=== PATIENT | male | born 1945 | race Caucasian/White ===

== ENCOUNTER → 2018-08-10 | Outpatient (REF) | payer MEDICARE, OTHER ==
[2018-08-10 11:14] LABS: HEMOGLOBIN A1c 7.7 %
[2018-08-10 11:24] LABS: MAU/CREAT RATIO 167.7 MCG/MG (0.0-30.0)
[2018-08-10 12:42] LABS: ALBUMIN 3.7 GM/DL (3.2-5.2); ALT/SGPT 24 U/L (12-78); BILIRUBIN,TOTAL 0.3 MG/DL (0.2-1.0); BLOOD UREA NITROGEN 16 MG/DL (7-18); CALCIUM LEVEL 8.5 MG/DL (8.8-10.2); CARBON DIOXIDE LEVEL 26 MEQ/L (21-32); CHLORIDE LEVEL 108 MEQ/L (98-107); CHOLESTEROL LEVEL 142 MG/DL (<200); CHOLESTEROL RISK RATIO 3.736 (<5); CREATININE FOR GFR 0.91 MG/DL (0.70-1.30); FREE T4 1.01 NG/DL (0.76-1.46); GLOMERULAR FILTRATION RATE > 60.0 (>42); GLUCOSE, FASTING 77 MG/DL (70-100); HDL CHOLESTEROL 38 MG/DL (>40); LDL CHOLESTEROL 88 MG/DL (<100); NON-HDL-C 104 MG/DL; POTASSIUM SERUM 4.1 MEQ/L (3.5-5.1); SODIUM LEVEL 142 MEQ/L (136-145); TOTAL PROTEIN 6.7 GM/DL (6.4-8.2); TRIGLYCERIDES LEVEL 80 MG/DL (<150)
[2018-08-13 11:04] LABS: FOLATE 11.1 NG/ML; TOTAL 25(OH) VITAMIN D 30.8 NG/ML (30.0-100.0)
[2018-08-14 11:08] LABS: VITAMIN B12 LEVEL 208 PG/ML (232-1245)
== END ==
LOC: M SFHCPLAZ 08:09
PROVIDERS: ATTEND Nurse Practitioner Family
DX: E11.9 Type 2 diabetes mellitus without complications (principal); E78.2 Mixed hyperlipidemia; N40.1 Benign prostatic hyperplasia with lower urinary tract symptoms; E55.9 Vitamin D deficiency, unspecified; E53.8 Deficiency of other specified B group vitamins
CPT/HCPCS: 36415; 80053; 80061; 82043; 82306; 82607; 82746; 83036; 84439; 84443; G0103

== ENCOUNTER 2018-09-06 08:17 | Emergency (ER) | payer MEDICARE, OTHER ==
[~2018-09-06] VITALS: Ht 177.8 cm; Wt 100.0 kg
[2018-09-06] MEDS ORDERED: ROSU40TA3 PO (08:35)
[2018-09-06] MEDS ORDERED: SERT50TA PO (08:35)
[2018-09-06] MEDS ORDERED: AMLO10TA5 PO (08:35)
[2018-09-06] MEDS ORDERED: GABA600T4 PO (08:35)
[2018-09-06] MEDS ORDERED: VENTAER IN (08:35)
[2018-09-06] MEDS ORDERED: FLOM0.4C39 PO (08:35)
[2018-09-06] MEDS ORDERED: PANT40TA3 PO (08:35)
[2018-09-06] MEDS ORDERED: LANTINJ4 SC (08:35)
[2018-09-06] MEDS ORDERED: CLOP75TA2 PO (08:35)
[2018-09-06] MEDS ORDERED: PRAZ5CAP PO (08:35)
[2018-09-06] MEDS ORDERED: LISI-542 PO (08:35)
[2018-09-06] MEDS ORDERED: D 1010004 PO (08:35)
[2018-09-06] MEDS ORDERED: METF10004 PO (08:35)
[2018-09-06] MEDS ORDERED: ASPI81TA85 PO (08:35)
[2018-09-06] MEDS ORDERED: MULTCAP PO (08:35)
[2018-09-06] MEDS ORDERED: DULO30CA PO (08:35)
[2018-09-06] MEDS ORDERED: GLIM2TAB PO (08:35)
[2018-09-06] MEDS ORDERED: EZET10TA PO (08:35)
[2018-09-06 09:16] LABS: HEMOGLOBIN 11.9 g/dl (13.5-17.5); MEAN CORPUSCULAR HGB CONC 33.1 g/dl (32.0-36.5); MEAN CORPUSCULAR VOLUME 81.8 fl (80.0-96.0); PLATELET COUNT, AUTOMATED 167 10^3/uL (150-450); WHITE BLOOD COUNT 4.4 10^3/uL (4.0-10.0)
[2018-09-06 09:27] LABS: INFLUENZA A AMPLIFICATION POSITIVE (NEGATIVE); INFLUENZA B AMPLIFICATION NEGATIVE (NEGATIVE)
[2018-09-06 09:34] LABS: BLOOD UREA NITROGEN 12 MG/DL (7-18); CALCIUM LEVEL 8.7 MG/DL (8.8-10.2); CARBON DIOXIDE LEVEL 27 MEQ/L (21-32); CHLORIDE LEVEL 105 MEQ/L (98-107); CREATININE FOR GFR 1.14 MG/DL (0.70-1.30); GLOMERULAR FILTRATION RATE > 60.0 (>42); GLUCOSE, FASTING 115 MG/DL (70-100); POTASSIUM SERUM 4.3 MEQ/L (3.5-5.1); SODIUM LEVEL 140 MEQ/L (136-145)
--- NOTE | 2018-09-06 09:39 | REP ---
Chest x-ray: Two views. History: Cough. Findings: The patient is status post prior median sternotomy. Heart is not enlarged. There are bypass graft markers in the anterior mediastinum. Mediastinum appears somewhat widened on the PA chest radiograph. The pleural angles are sharp. No infiltrate is seen. No significant bony abnormality. Impression: Widened mediastinum. Status post median sternotomy and bypass grafting procedure. Recommend chest CT. Electronically Signed by Berto Santoyo MD 09/06/2018 09:30 A
[2018-09-06] MEDS ORDERED: BENZONATATE 100 MG CAP PO ONE (09:45)
[2018-09-06] MEDS ORDERED: OSEL75CA PO (09:48)
[2018-09-06] MEDS ORDERED: TESS100C PO (09:48)
[2018-09-06] MEDS ORDERED: ISOVUE-370 76% 100ML VIAL (Q9967) As Ordered ONE (09:53)
--- NOTE | 2018-09-06 10:30 | REP ---
CT CHEST WITH IV CONTRAST: HISTORY: Wide mediastinum. Comparison is made with today's chest x-ray. CT CONTRAST DOSE: 75 mL of intravenous Isovue [address] FINDINGS: The patient is status post prior median sternotomy and coronary artery bypass grafting procedure. There is no evidence of pleural or pericardial effusion. There is no evidence of mediastinal mass, adenopathy, or hematoma. There is no evidence of aneurysm or dissection in the aorta. No filling defect is seen in the pulmonary arterial tree to suggest pulmonary embolus. Vascular calcifications noted. No significant pulmonary nodule is seen. No infiltrate or mass lesion is observed. No bony destructive lesion is appreciated. No adrenal lesion is observed. There are two calcified small gallstones in the dependent portion the gallbladder. The visualized upper abdominal structures are otherwise unremarkable. IMPRESSION: Status post median sternotomy and coronary artery bypass grafting procedure. Otherwise no active cardiopulmonary disease. No pathologic mediastinal widening is identified. Cholelithiasis is noted incidentally. Electronically Signed by Berto Santoyo MD 09/06/2018 11:21 A
[2018-09-06 11:19] VITALS: BP 134/71
--- NOTE | 2018-09-07 06:46 | ECGEPIP ---
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
== END 2018-09-06 11:25 | disposition home or self-care (01) ==
LOC: M ED 08:17
DX: J09.X2 Influenza due to identified novel influenza A virus with other respiratory manifestations (principal); Z20.828 Contact with and (suspected) exposure to other viral communicable diseases; I10 Essential (primary) hypertension; E78.5 Hyperlipidemia, unspecified; E11.9 Type 2 diabetes mellitus without complications; K21.9 Gastro-esophageal reflux disease without esophagitis; I35.0 Nonrheumatic aortic (valve) stenosis; Z95.1 Presence of aortocoronary bypass graft; Z79.899 Other long term (current) drug therapy; Z79.82 Long term (current) use of aspirin; Z79.02 Long term (current) use of antithrombotics/antiplatelets; Z79.4 Long term (current) use of insulin
CPT/HCPCS: 36415; 71046; 71260; 80048; 85027; 87502; 93005; 99284; Q9967

== ENCOUNTER → 2018-09-10 | Outpatient (REF) | payer MEDICARE, OTHER ==
[~2018-09-10] MED LIST: AMLO10TA5 PO; ASPI81TA85 PO; CLOP75TA2 PO; D 1010004 PO; DULO30CA9 PO; EZET10TA PO; FLOM0.4C39 PO; GABA600T4 PO; GLIM2TAB PO; HYDR-3363 PO; LANTINJ4 SC; LISI-542 PO; METF10004 PO; MULTCAP PO; NORV5TAB PO; OSEL75CA PO; PANT40TA3 PO; PRAZ5CAP PO; ROSU40TA3 PO; SERT-141 PO; TESS100C PO; VENTAER IN
[2018-09-10 18:34] LABS: APPEARANCE, URINE MANUAL CLOUDY (CLEAR); COLOR, URINE MANUAL YELLOW (YELLOW)
[2018-09-10 18:35] LABS: BILIRUBIN, URINE MANUAL NEGATIVE (NEGATIVE); BLOOD URINE MANUAL NEGATIVE (NEGATIVE); GLUCOSE, URINE (UA) MANUAL NEGATIVE (NEGATIVE); KETONE, URINE MANUAL NEGATIVE (NEGATIVE); LEUKOCYTE ESTERASE, URINE MAN NEGATIVE (NEGATIVE); NITRITE, URINE MANUAL NEGATIVE (NEGATIVE); PROTEIN, URINE MANUAL 2+ mg/dL (NEGATIVE); SPECIFIC GRAVITY,URINE MANUAL 1.025 (1.002-1.035); UROBILINOGEN, URINE MANUAL NORMAL (NORMAL)
[2018-09-10 18:56] LABS: AMORPHOUS SEDIMENT, URINE LARGE AMOUNT (NEGATIVE); BACTERIA, URINE NONE SEEN; HYALINE CAST, URINE NONE SEEN /lpf (0-1); MUCUS, URINE SMALL AMOUNT (NEGATIVE); RBC, URINE NONE SEEN /hpf (0-3); SQUAMOUS EPITHELIAL CELL URINE SMALL AMOUNT /hpf (SMALL AMT); WBC, URINE 0-1 /hpf (0-3)
== END ==
LOC: M SMT 17:34
PROVIDERS: ATTEND Nurse Practitioner Family
DX: R97.20 Elevated prostate specific antigen [PSA] (principal); N40.1 Benign prostatic hyperplasia with lower urinary tract symptoms; R31.0 Gross hematuria
CPT/HCPCS: 51798; 81000; 87086; 88108; G0463

== ENCOUNTER → 2018-09-13 | Outpatient (CLI) | payer MEDICARE, OTHER ==
[~2018-09-13] MED LIST changes: +DULO30CA PO; -DULO30CA9 PO; -HYDR-3363 PO; +ISOVUE-370 76% 100ML VIAL (Q9967) As Ordered ONE; -NORV5TAB PO; -SERT-141 PO; +SERT50TA PO
--- NOTE | 2018-09-13 10:09 | REP ---
CT of the abdomen and pelvis for gross hematuria: The study is performed without and with IV contrast. After IV contrast, multiphase phase scanning is performed utilizing the CT urogram protocol: There are no renal calculi. There are no ureteral calculi. There are no bladder calculi. There is no hydronephrosis. There are no renal solid masses on the right on the left. There is a left renal upper pole 3.8 cm Bosniak type 1 exophytic cyst. There is a left renal mid pole posterior 2.9 cm Bosniak type 1 exophytic cyst. There is a left renal lower pole 1.7 cm Bosniak type 1 cortical cyst. There is a right renal lower pole 3.2 cm Bosniak type 1 exophytic cyst. No bladder masses are identified. The prostate is moderately enlarged. There are phleboliths inferiorly in the pelvis bilaterally. The visualized lung osman are unremarkable. The hepatic parenchyma is homogeneous. There are occasional hepatic calcified granulomas. There are small calculi in the gallbladder neck. The gallbladder is otherwise unremarkable. The pancreas and spleen are normal size and unremarkable. The adrenals are unremarkable. The abdominal aorta is unremarkable except for occasional calcified atheroma. The bowel and mesentery are unremarkable. Pelvis: The appendix is unremarkable. There is no adenopathy or ascites. The pelvic bowel loops are unremarkable. Impression: There are no renal calculi. There is no hydronephrosis. There are no renal solid masses. There are bilateral Bosniak type 1 renal cysts as described. Otherwise, essentially negative CT of the abdomen and pelvis. Half Electronically Signed by Evaristo Lim MD 09/13/2018 10:00 A
== END ==
LOC: M RAD 08:26
PROVIDERS: ATTEND Nurse Practitioner Family
DX: R31.0 Gross hematuria (principal); N28.1 Cyst of kidney, acquired; K80.20 Calculus of gallbladder without cholecystitis without obstruction; I70.0 Atherosclerosis of aorta
CPT/HCPCS: 74178; Q9967

== ENCOUNTER → 2018-09-18 | Outpatient (CLI) | payer MEDICARE, OTHER ==
[~2018-09-18] MED LIST changes: -DULO30CA PO; +DULO30CA9 PO; +HYDR-3363 PO; -ISOVUE-370 76% 100ML VIAL (Q9967) As Ordered ONE; +SERT-141 PO; -SERT50TA PO
--- NOTE | 2018-09-18 14:27 | REP ---
Prostate sonography: History: Elevated PSA Sonographic findings: Trans rectal prostate sonography demonstrates unremarkable seminal vesicles. Prostate gland is heterogeneously enlarged with calcifications and cystic changes noted. Glandular dimensions are measured at 5.3 x 3.4 x 4.4 cm with a calculated glandular volume of 42.8 ml. Transrectal sonographic guidance is provided to Dr. Karimi who performed trans rectal ultrasound guided needle biopsy procedure . Electronically Signed by Berto Santoyo MD 09/18/2018 02:19 P
== END ==
LOC: M SMT PRO 10:27
PROVIDERS: ATTEND Urology
DX: C61 Malignant neoplasm of prostate (principal); Z79.899 Other long term (current) drug therapy
CPT/HCPCS: 51798; 52000; 55700; 76872; 76942; 81000; 87086; 88108; G0416; G0463

== ENCOUNTER → 2018-09-24 | Outpatient (REF) | payer MEDICARE, OTHER ==
[~2018-09-24] MED LIST changes: +NORV5TAB PO
[2018-09-24 15:19] LABS: BASO % 0.2 % (0.0-1.0); EOS % 0.2 % (0.0-3.0); HEMATOCRIT 40.2 % (42.0-52.0); HEMOGLOBIN 12.9 g/dl (13.5-17.5); LYMPH # 0.7 10^3/uL (1.5-4.5); LYMPH % 8.3 % (24.0-44.0); MEAN CORPUSCULAR HEMOGLOBIN 26.8 pg (27.0-33.0); MEAN CORPUSCULAR HGB CONC 32.1 g/dl (32.0-36.5); MEAN CORPUSCULAR VOLUME 83.6 fl (80.0-96.0); MONO # 0.8 10^3/uL (0.0-0.8); MONO % 9.9 % (0.0-5.0); NEUTROPHILS # 6.7 10^3/uL (1.8-7.7); NEUTROPHILS % 80.9 % (36.0-66.0); PLATELET COUNT, AUTOMATED 211 10^3/uL (150-450); RED BLOOD COUNT 4.81 10^6/uL (4.30-6.10); WHITE BLOOD COUNT 8.3 10^3/uL (4.0-10.0)
[2018-09-24 15:26] LABS: BLOOD UREA NITROGEN 15 MG/DL (7-18); CARBON DIOXIDE LEVEL 29 MEQ/L (21-32); CHLORIDE LEVEL 103 MEQ/L (98-107); CREATININE FOR GFR 0.98 MG/DL (0.70-1.30); GLOMERULAR FILTRATION RATE > 60.0 (>42); GLUCOSE, FASTING 88 MG/DL (70-100); POTASSIUM SERUM 4.2 MEQ/L (3.5-5.1); SODIUM LEVEL 139 MEQ/L (136-145)
[2018-09-24 15:39] LABS: APPEARANCE, URINE CLOUDY (CLEAR); BACTERIA, URINE AUTO 1+ (NEGATIVE); BILIRUBIN, URINE AUTO NEGATIVE (NEGATIVE); BLOOD, URINE BLOOD 3+ (NEGATIVE); COLOR, URINE AMBER (YELLOW); GLUCOSE, URINE (UA) AUTO NEGATIVE (NEGATIVE); KETONE, URINE AUTO NEGATIVE (NEGATIVE); LEUKOCYTE ESTERASE, URINE AUTO 3+ (NEGATIVE); MUCUS, URINE LARGE (NEGATIVE); NITRITE, URINE AUTO NEGATIVE (NEGATIVE); PROTEIN, URINE AUTO 2+ mg/dL (NEGATIVE); RBC, URINE AUTO 79 /HPF (0-3); SPECIFIC GRAVITY URINE AUTO 1.029 (1.002-1.035); SQUAMOUS EPITHELIAL CELL UR AU 0 /HPF (0-6); WBC, URINE AUTO TNTC /HPF (0-3)
== END ==
LOC: M SFHCPLAZ 13:17
PROVIDERS: ATTEND Family Medicine
DX: N41.0 Acute prostatitis (principal); R35.0 Frequency of micturition
CPT/HCPCS: 36415; 80048; 81001; 85025; 87040; 87088; 87186; G0463

== ENCOUNTER → 2018-09-25 | Outpatient (REF) | payer MEDICARE, OTHER ==
[~2018-09-25] MED LIST changes: +DULO30CA PO; -DULO30CA9 PO; -HYDR-3363 PO; -NORV5TAB PO; -SERT-141 PO; +SERT50TA PO
== END ==
LOC: M SFHCPLAZ 14:23
PROVIDERS: ATTEND Family Medicine
DX: R19.7 Diarrhea, unspecified (principal)

== ENCOUNTER 2018-10-03 15:54 | Emergency (ER) | payer MEDICARE, OTHER ==
[~2018-10-03] VITALS: Ht 177.8 cm; Wt 98.0 kg
[~2018-10-03 15:54] MED LIST changes: -DULO30CA PO; +DULO30CA9 PO; +SERT-141 PO; -SERT50TA PO
[2018-10-03 17:01] LABS: BLOOD UREA NITROGEN 16 MG/DL (7-18); CARBON DIOXIDE LEVEL 31 MEQ/L (21-32); CHLORIDE LEVEL 103 MEQ/L (98-107); CREATININE FOR GFR 1.11 MG/DL (0.70-1.30); GLOMERULAR FILTRATION RATE > 60.0 (>42); GLUCOSE, FASTING 248 MG/DL (70-100); POTASSIUM SERUM 4.3 MEQ/L (3.5-5.1); SODIUM LEVEL 138 MEQ/L (136-145)
--- NOTE | 2018-10-03 17:14 | REP ---
Clinical: Confusion and transient ischemic attack . Findings: Age-related atrophy and microvascular ischemic changes are appreciated. The ventricles and sulci are symmetric. Lemus-white differentiation is maintained. There is no evidence for acute intracranial hemorrhage, mass/mass effect, pathology or infarction. No extra-axial fluid collection. Calvarium is intact. Paranasal sinuses and mastoid air cells are clear. Impression: Age related atrophy and microvascular ischemic changes. No acute intracranial hemorrhage, infarction, or mass/mass effect. Electronically Signed by Cristi Liu MD 10/03/2018 05:05 P
[2018-10-03 17:24] LABS: BASO % 0.5 % (0.0-1.0); EOS # 0.1 10^3/uL (0.0-0.50); EOS % 1.1 % (0.0-3.0); HEMATOCRIT 41.6 % (42.0-52.0); HEMOGLOBIN 13.5 g/dl (13.5-17.5); LYMPH # 1.2 10^3/uL (1.5-4.5); MEAN CORPUSCULAR HEMOGLOBIN 26.5 pg (27.0-33.0); MEAN CORPUSCULAR HGB CONC 32.5 g/dl (32.0-36.5); MEAN CORPUSCULAR VOLUME 81.7 fl (80.0-96.0); MONO # 0.4 10^3/uL (0.0-0.8); MONO % 7.2 % (0.0-5.0); NEUTROPHILS # 4.2 10^3/uL (1.8-7.7); NEUTROPHILS % 69.4 % (36.0-66.0); PLATELET COUNT, AUTOMATED 248 10^3/uL (150-450); RED BLOOD COUNT 5.09 10^6/uL (4.30-6.10); WHITE BLOOD COUNT 6.1 10^3/uL (4.0-10.0)
--- NOTE | 2018-10-03 17:27 | REP ---
Clinical: Fever and confusion . Comparison: 09/06/2018 . Technique: PA and lateral. Findings: The mediastinum and cardiac silhouette are stable. The lung osman are clear and without acute consolidation, effusion, or pneumothorax. The skeletal structures are intact and normal. Impression: 1. No acute cardiopulmonary process. Electronically Signed by Cristi Liu MD 10/03/2018 05:19 P
[2018-10-03 17:32] LABS: INFLUENZA A AMPLIFICATION NEGATIVE (NEGATIVE); INFLUENZA B AMPLIFICATION NEGATIVE (NEGATIVE)
[2018-10-03 18:30] VITALS: BP 183/84
[2018-10-18] MEDS ORDERED: NORV5TAB PO (15:00)
== END 2018-10-03 18:46 | disposition home or self-care (01) ==
LOC: M ED 15:54
DX: N39.0 Urinary tract infection, site not specified (principal); B96.5 Pseudomonas (aeruginosa) (mallei) (pseudomallei) as the cause of diseases classified elsewhere; C61 Malignant neoplasm of prostate; I50.9 Heart failure, unspecified; I11.0 Hypertensive heart disease with heart failure; E11.9 Type 2 diabetes mellitus without complications; G47.33 Obstructive sleep apnea (adult) (pediatric); E78.00 Pure hypercholesterolemia, unspecified; F33.9 Major depressive disorder, recurrent, unspecified; K21.9 Gastro-esophageal reflux disease without esophagitis; F43.10 Post-traumatic stress disorder, unspecified; Z79.82 Long term (current) use of aspirin; Z79.899 Other long term (current) drug therapy; Z79.01 Long term (current) use of anticoagulants; Z79.4 Long term (current) use of insulin; Z87.440 Personal history of urinary (tract) infections; Z86.19 Personal history of other infectious and parasitic diseases; Z98.890 Other specified postprocedural states; Z95.1 Presence of aortocoronary bypass graft
CPT/HCPCS: 36415; 70450; 71046; 80048; 83605; 85025; 87040; 87086; 87502; 93041; 94760; 96372; 99285; J0696

== ENCOUNTER 2018-10-04 22:26 | Emergency (ER) | payer MEDICARE, OTHER ==
[~2018-10-04] VITALS: Ht 177.8 cm; Wt 95.5 kg
[~2018-10-04 22:26] MED LIST changes: -EZET10TA PO; +EZET10TA21 PO; -VENTAER IN; +VENTAER INH
[2018-10-04] MEDS ORDERED: **hydrALAZINE** 10 MG TAB PO ONE (23:30)
--- NOTE | 2018-10-05 00:13 | REP ---
Clinical: Chest pain . Comparison: 10/03/2018 . Findings: The mediastinum and cardiac silhouette are stable and within normal limits for portable technique. Evidence for prior sternotomy and CABG. The lung osman are clear without acute consolidation, effusion, or pneumothorax. Skeletal structures are intact. Impression: No acute cardiopulmonary process appreciated. Electronically Signed by Cristi Liu MD 10/05/2018 12:04 A
[2018-10-05 00:44] LABS: BASO % 0.4 % (0.0-1.0); EOS # 0.1 10^3/uL (0.0-0.50); EOS % 1.1 % (0.0-3.0); HEMATOCRIT 38.2 % (42.0-52.0); HEMOGLOBIN 12.9 g/dl (13.5-17.5); LYMPH % 27.3 % (24.0-44.0); MEAN CORPUSCULAR HEMOGLOBIN 28.2 pg (27.0-33.0); MEAN CORPUSCULAR HGB CONC 33.8 g/dl (32.0-36.5); MEAN CORPUSCULAR VOLUME 83.6 fl (80.0-96.0); MONO # 0.5 10^3/uL (0.0-0.8); MONO % 7.4 % (0.0-5.0); NEUTROPHILS # 4.5 10^3/uL (1.8-7.7); NEUTROPHILS % 62.5 % (36.0-66.0); PLATELET COUNT, AUTOMATED 216 10^3/uL (150-450); RED BLOOD COUNT 4.57 10^6/uL (4.30-6.10); WHITE BLOOD COUNT 7.2 10^3/uL (4.0-10.0)
[2018-10-05 00:53] LABS: BLOOD UREA NITROGEN 23 MG/DL (7-18); CALCIUM LEVEL 8.8 MG/DL (8.8-10.2); CARBON DIOXIDE LEVEL 28 MEQ/L (21-32); CHLORIDE LEVEL 108 MEQ/L (98-107); CPK CREATINE PHOSPHOKINASE 143 U/L (39-308); CREATININE FOR GFR 1.12 MG/DL (0.70-1.30); GLOMERULAR FILTRATION RATE > 60.0 (>42); GLUCOSE, FASTING 150 MG/DL (70-100); MB/CK RELATIVE INDEX 1.82 (< OR =4); POTASSIUM SERUM 4.2 MEQ/L (3.5-5.1); SODIUM LEVEL 142 MEQ/L (136-145); TROPONIN I 0.02 NG/ML (< 0.10)
--- NOTE | 2018-10-05 01:34 | REPVR ---
EXAM: CT Head Without Contrast EXAM DATE/TIME: 10/05/2018 12:43 AM CLINICAL HISTORY: 73 years old, male; Pain; Headache; Other: Headache, hypertension TECHNIQUE: Imaging protocol: Axial computed tomography images of the head/brain without contrast. Radiation optimization: All CT scans at this facility use at least one of these dose optimization techniques: automated exposure control; mA and/or kV adjustment per patient size (includes targeted exams where dose is matched to clinical indication); or iterative reconstruction. COMPARISON: CT Head without contrast 10/03/2018 4:46 PM FINDINGS: There is no acute intracranial hemorrhage, extra axial hematoma, or midline shift. There is mild parenchymal volume loss, appropriate for age related involutional change. The ventricles are not dilated. There is intracranial atherosclerosis. No CT findings are seen at the current time to suggest changes of acute territorial vascular infarction. Note is made however, that CT changes, may lag clinical findings in acute CVA. If clinically indicated, consideration could be given to MRI with diffusion weighted imaging, due to its greater sensitivity, for detection of acute ischemic change. Intracranial calcifications are incidentally noted. No pericranial scalp hematoma is seen. Ocular postoperative changes are noted. No acute cranial vault fracture is seen. No fluid is seen within the visualized paranasal sinuses or mastoid air cells. IMPRESSION: No evidence of acute territorial major vessel infarct, mass effect, or hemorrhage. Age-related involutional changes. Findings are similar to the prior exam. Electronically signed by: Max Johnson On 10/05/2018 01:34:09 AM
[2018-10-05 03:00] VITALS: BP 161/74
[2018-10-05] MEDS ORDERED: HYDR-3363 PO (18:19)
--- NOTE | 2018-10-05 20:17 | ECGEPIP ---
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
[2018-10-18] MEDS ORDERED: NORV5TAB PO (15:00)
== END 2018-10-05 03:15 | disposition home or self-care (01) ==
LOC: M ED 22:26
DX: I10 Essential (primary) hypertension (principal); Z79.899 Other long term (current) drug therapy; Z79.4 Long term (current) use of insulin
CPT/HCPCS: 36415; 70450; 71045; 80048; 82550; 82553; 84484; 85025; 93005; 93041; 94760; 96372; 99285; J0696

== ENCOUNTER 2018-10-05 16:21 | Emergency (ER) | payer MEDICARE, OTHER ==
[~2018-10-05] VITALS: Ht 177.8 cm; Wt 95.5 kg
[~2018-10-05 16:21] MED LIST changes: +EZET10TA PO; -EZET10TA21 PO; +VENTAER IN; -VENTAER INH
[2018-10-05] MEDS ORDERED: LORazepam 2 MG/ML VIAL (J2060) IV STA (16:49)
[2018-10-05] MEDS ORDERED: ASPIRIN 81 MG CHEW TABLET PO ONE (17:00)
[2018-10-05] MEDS ORDERED: LISINOPRIL 20 MG TAB PO ONE (17:00)
[2018-10-05 17:06] LABS: BASO % 0.4 % (0.0-1.0); EOS # 0.1 10^3/uL (0.0-0.50); EOS % 0.9 % (0.0-3.0); HEMOGLOBIN 13.8 g/dl (13.5-17.5); LYMPH # 1.2 10^3/uL (1.5-4.5); LYMPH % 15.4 % (24.0-44.0); MEAN CORPUSCULAR HEMOGLOBIN 26.6 pg (27.0-33.0); MEAN CORPUSCULAR HGB CONC 32.9 g/dl (32.0-36.5); MEAN CORPUSCULAR VOLUME 81.1 fl (80.0-96.0); MONO # 0.4 10^3/uL (0.0-0.8); MONO % 5.3 % (0.0-5.0); NEUTROPHILS # 6.1 10^3/uL (1.8-7.7); NEUTROPHILS % 77.1 % (36.0-66.0); PLATELET COUNT, AUTOMATED 227 10^3/uL (150-450); RED BLOOD COUNT 5.18 10^6/uL (4.30-6.10); WHITE BLOOD COUNT 7.9 10^3/uL (4.0-10.0)
--- NOTE | 2018-10-05 17:10 | REP ---
Clinical: Altered mental status and confusion . Comparison: 10/05/2018, 10/03/2018 . Findings: The ventricles, sulci, and cisterns are normal in position and appearance. Lemus-white differentiation is maintained. No acute intracranial hemorrhage, mass/mass effect, pathology or trauma/injury. No evidence for acute infarction. No extra-axial fluid collection. Calvarium is intact. Paranasal sinuses and mastoid air cells are clear. Impression: No evidence for acute intracranial pathology or trauma/injury. Electronically Signed by Cristi Liu MD 10/05/2018 05:02 P
[2018-10-05 17:16] LABS: INR 1.1; PROTHROMBIN TIME 14.3 SECONDS (12.1-14.4)
--- NOTE | 2018-10-05 17:23 | REP ---
Clinical: Acute chest pain . Comparison: 10/04/2018 . Findings: The mediastinum and cardiac silhouette are stable with stable cardiomegaly and evidence of prior sternotomy and CABG. The lung osman are clear without acute consolidation, effusion, or pneumothorax. Skeletal structures are intact. Impression: No acute cardiopulmonary process appreciated. Electronically Signed by Cristi Liu MD 10/05/2018 05:14 P
[2018-10-05 17:25] VITALS: BP 151/84
[2018-10-05 17:43] LABS: ALBUMIN 3.8 GM/DL (3.2-5.2); ALT/SGPT 39 U/L (12-78); BILIRUBIN,DIRECT 0.1 MG/DL (0.0-0.2); BILIRUBIN,TOTAL 0.4 MG/DL (0.2-1.0); BLOOD UREA NITROGEN 24 MG/DL (7-18); CALCIUM LEVEL 9.3 MG/DL (8.8-10.2); CARBON DIOXIDE LEVEL 26 MEQ/L (21-32); CHLORIDE LEVEL 106 MEQ/L (98-107); CPK CREATINE PHOSPHOKINASE 120 U/L (39-308); CREATININE FOR GFR 1.17 MG/DL (0.70-1.30); GLOMERULAR FILTRATION RATE > 60.0 (>42); GLUCOSE, FASTING 158 MG/DL (70-100); POTASSIUM SERUM 4.4 MEQ/L (3.5-5.1); SODIUM LEVEL 141 MEQ/L (136-145); TOTAL PROTEIN 7.1 GM/DL (6.4-8.2); TROPONIN I < 0.02 NG/ML (< 0.10)
[2018-10-05] MEDS ORDERED: HYDR-3363 PO (18:19)
[2018-10-05] MEDS ORDERED: amLODIPine 5 MG TAB PO ONE (19:45)
[2018-10-05 20:59] VITALS: BP 150/82
--- NOTE | 2018-10-05 21:22 | ECGEPIP ---
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
[2018-10-18] MEDS ORDERED: NORV5TAB PO (15:00)
== END 2018-10-05 21:07 | disposition home or self-care (01) ==
LOC: M ED 16:21
DX: I10 Essential (primary) hypertension (principal); F41.9 Anxiety disorder, unspecified; I45.89 Other specified conduction disorders; I51.9 Heart disease, unspecified; E11.9 Type 2 diabetes mellitus without complications; J44.9 Chronic obstructive pulmonary disease, unspecified; Z95.1 Presence of aortocoronary bypass graft; Z79.84 Long term (current) use of oral hypoglycemic drugs; Z79.899 Other long term (current) drug therapy
CPT/HCPCS: 70450; 71045; 80048; 80076; 82550; 82553; 84484; 85025; 85610; 93005; 93041; 94760; 96374; 99285; G0463; J2060

== ENCOUNTER → 2018-10-15 | Outpatient (CLI) | payer MEDICARE, OTHER ==
[~2018-10-15] MED LIST changes: +HYDR-3363 PO; +NORV5TAB PO
[2018-10-15 13:35] LABS: BLOOD UREA NITROGEN 17 MG/DL (7-18); CALCIUM LEVEL 9.5 MG/DL (8.8-10.2); CARBON DIOXIDE LEVEL 31 MEQ/L (21-32); CHLORIDE LEVEL 102 MEQ/L (98-107); GLOMERULAR FILTRATION RATE > 60.0 (>42); GLUCOSE, FASTING 183 MG/DL (70-100); POTASSIUM SERUM 4.4 MEQ/L (3.5-5.1); SODIUM LEVEL 138 MEQ/L (136-145)
[2018-10-15 13:37] LABS: HEMATOCRIT 41.6 % (42.0-52.0); HEMOGLOBIN 13.9 g/dl (13.5-17.5); MEAN CORPUSCULAR HGB CONC 33.4 g/dl (32.0-36.5); MEAN CORPUSCULAR VOLUME 83.9 fl (80.0-96.0); PLATELET COUNT, AUTOMATED 224 10^3/uL (150-450); RED BLOOD COUNT 4.96 10^6/uL (4.30-6.10); WHITE BLOOD COUNT 7.1 10^3/uL (4.0-10.0)
[2018-10-15 13:43] LABS: INR 1.08; PROTHROMBIN TIME 14.1 SECONDS (12.1-14.4)
== END ==
LOC: M SMT 09:13
PROVIDERS: ATTEND Urology
DX: Z01.818 Encounter for other preprocedural examination (principal); C61 Malignant neoplasm of prostate

== ENCOUNTER 2018-10-24 12:45 | Inpatient (IN) | payer MEDICARE, OTHER ==
[~2018-10-24] VITALS: Ht 175.3 cm; Wt 95.3 kg
[~2018-10-24 12:45] MED LIST changes: -VENTAER IN; +VENTAER INH
[2018-11-06] MEDS ORDERED: LR 1,000 ML IV SCH ×2 (07:00→21:30)
[2018-11-06] MEDS ORDERED: ceFAZolin 2 GM/D5W 50 ML IV BAG (J0690 PER 500MG) As Ordered ONE (12:50)
[2018-11-06] MEDS ORDERED: B-122500 PO (12:57)
[2018-11-06] MEDS ORDERED: LISI-1046 PO (12:57)
[2018-11-06] MEDS ORDERED: HEPARIN SOD (PORCINE) 5000 UNITS/ML VIAL SQ ONE (13:00)
[2018-11-06] MEDS ORDERED: LIDOCAINE 1% SDV INJ 30 ML VIAL As Ordered ONE (15:40)
[2018-11-06] MEDS ORDERED: BUPIVACAINE HCL 0.25% 30 ML VIAL As Ordered ONE (15:41)
[2018-11-06] MEDS ORDERED: NS 1,000 ML IV SCH (15:59)
[2018-11-06] MEDS ORDERED: ALBUTEROL 90 MCG/ACT 8GM HFA INHALER INH PRN (16:00)
[2018-11-06] MEDS ORDERED: ACETAMINOPHEN TAB 650MG DOSE (2X325MG) PO PRN (16:00)
[2018-11-06] MEDS ORDERED: GLUCOSE 4 GM CHEW TABLET PO PRN (16:00)
[2018-11-06] MEDS ORDERED: DEXTROSE 50% 50 ML SYRINGE IV PRN (16:00)
[2018-11-06] MEDS ORDERED: MORPHINE 4 MG/ML 1ML VIAL/SYRINGE (J2270) IV PRN (16:00)
[2018-11-06] MEDS ORDERED: ONDANSETRON 4MG/2ML VIAL (J2405) IV PRN ×2 (16:00→21:30)
[2018-11-06] MEDS ORDERED: GLUCAGON FOR INJ 1 MG VIAL (J1610) SC PRN (16:00)
[2018-11-06] MEDS ORDERED: PERCOCET 5MG/325MG TAB PO PRN (16:00)
[2018-11-06] MEDS ORDERED: ROCURONIUM BROMIDE 50 MG/5 ML VIAL As Ordered ONE ×2 (16:37→17:02)
[2018-11-06] MEDS ORDERED: MIDAZOLAM INJ 2 MG/2 ML VIAL (J2250) As Ordered ONE (16:37)
[2018-11-06] MEDS ORDERED: ePHEDrine SULFATE 25 MG/5 ML(5MG/ML) SYRINGE As Ordered ONE (16:37)
[2018-11-06] MEDS ORDERED: fentaNYL 100 MCG/2 ML INJECTION (J3010) As Ordered ONE ×2 (16:37→17:06)
[2018-11-06] MEDS ORDERED: PROPOFOL 200 MG/20 ML VIAL As Ordered ONE (16:37)
[2018-11-06] MEDS ORDERED: SUGAMMADEX SODIUM 500 MG/5 ML VIAL (BRIDION) As Ordered ONE ×2 (16:37→20:22)
[2018-11-06] MEDS ORDERED: LIDOCAINE 2% INJ 100 MG/5 ML SDV (FOR ANES.) As Ordered ONE (16:37)
[2018-11-06] MEDS ORDERED: ACETAMINOPHEN 1000MG 100ML IV BTL (OFIRMEV) (J0131 PER 10MG) As Ordered ONE (16:40)
[2018-11-06] MEDS ORDERED: dexameTHASONE 4 MG/ML 1ML VIAL (J1100) As Ordered ONE (16:52)
[2018-11-06] MEDS ORDERED: ONDANSETRON 4MG/2ML VIAL (J2405) As Ordered ONE (16:53)
[2018-11-06] MEDS: HumaLOG INSULIN (NovoLOG) PER UNIT SC SCH ×2 (17:30→21:00)
[2018-11-06] MEDS ORDERED: HYDROmorphone HCL 2 MG/ML 1ML VIAL (J1170) As Ordered ONE (17:47)
--- NOTE | 2018-11-06 21:06 | ROOPDOC ---
[facility] Report Of Operation Report of Operation DATE OF PROCEDURE: 11/06/18 PREPROCEDURE DIAGNOSES: Prostate Cancer. POSTPROCEDURE DIAGNOSES: Prostate Cancer. PROCEDURE: Robotic-assisted Laparoscopic Radical Prostatectomy with Bilateral Pelvic Lymph Node Dissection. 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 OPERATIVE INDICATIONS: This is a 73 year old male with intermediate risk clinical T1c Benedict 3+4 prostate cancer, here today for the above procedure for treatment. DESCRIPTION OF PROCEDURE: The patient was brought to the operating room and general anesthesia was induced. Prophylactic antibiotics were infused. He was then placed in the supine position and prepped and draped in the usual sterile fashion. At this point, a Orellana catheter was inserted into the bladder and the balloon was filled with 10 mL of sterile water. We then made a midline incision just above the umbilicus for an 8 mm port. A Veress needle was utilized to achieve pneumoperitoneum. Next, an 8 mm port was inserted into the incision and subsequently a camera was inserted. There were no injuries from the Veress needle or initial trocar placement. Then three robotic ports were placed in the usual configuration in line just below the level of the umbilicus. A 12 mm patient support assistant port was placed just lateral and at the level of the umbilicus. Once all the ports were placed, the robot was docked. Lysis of adhesions between the sigmoid colon and abdominal wall was then performed. Next, the bladder was then released from the anterior abdominal wall using electrocautery. Once the bladder was dropped, the fat overlying the prostate was cleared using electrocautery. The superficial dorsal vein was controlled with electrocautery. The endopelvic fascia was opened on both sides and the dorsal venous complex was cleared. Next, a #0 Vicryl [id number] stitch was placed around the dorsal venous complex. Once that was done, the bladder was opened and dissected away from the prostate. At this point, the prostate was lifted up. At this point, the prostate was lifted up. The vasa deferentia were identified in the midline. They were controlled with electrocautery and then transected. The seminal vesicles were also dissected off bilaterally. The rectum was safely mobilized away from the prostate. At this point I ligated and transected bilateral prostatic pedicles using the Harmonic scalpel. The pedicles were carried towards the apex. After taking care of the pedicles and mobilizing the rectum off the prostate below, the prostate was only connected by the urethra. At this point, the dorsal venous complex was transected with electrocautery. The urethra was then opened and the catheter was withdrawn and the posterior urethra was transected, thus freeing the prostate. At this point, we checked for hemostasis and it did appear very good. Next, we performed bilateral pelvic lymph node dissection. This was done in a standard fashion. The limits of dissection were the iliac vein proximally, the obturator nerve distally, the pelvic sidewall laterally, and the bladder medially. All lymphatic tissue within these limits was removed. I performed the same procedure on both the right and left sides. Hemostasis was then obtained with a combination of bipolar electrocautery and Weck clips. The lymphatic packets were then placed in separate Endo Catch bags for future retrieval. Once hemostasis was confirmed, I then moved on to perform the vesicourethral anastomosis. The vesicourethral anastomosis was performed in running fashion using a Quill stitch. Once this was done, the final #20-Persian Orellana catheter was placed. The balloon was filled with 15 mL of sterile water. Upon completion of the vesicourethral anastomosis, it was tested by filling the bladder with sterile water. The anastomosis appeared to be watertight. At this point, the prostate and seminal vesicles were placed in an Endo Catch bag for future retrieval. The robot was then undocked. A Cindy fascial closure device was utilized to place a #0 Vicryl suture between the fascia of the 12 mm patient support assistant port. At this point, a Kingsley- Mora drain was brought in through the left robotic port skin site and the drain was positioned anterior to the bladder. The drain was secured to the skin with #2-0 Ethilon suture. Next, all the remaining ports were removed and there did not appear to be any bleeding from any of the port sites. The prostate, as well as the lymphatic packets were then extracted from the camera port site after the skin was extended. The fascia in this incision was then closed with a running #0 Vicryl stitch. The previously placed #0 Vicryl free ties through the patient support assistant port were then tied down and all incisions were irrigated. Last, all of the incisions were closed with running subcuticular #4-0 Monocryl sutures. Local anesthesia was applied. Dermabond was then applied to the incisions. T his marked the conclusion of the procedure. The patient was then awakened from anesthesia and transported to the recovery room in stable condition. ESTIMATED BLOOD LOSS: 75 mL. COMPLICATIONS: None. SPECIMENS: Prostate and seminal vesicles, right pelvic lymph nodes, left pelvic lymph nodes. PLAN: The patient will be admitted to the hospital postoperatively, and he will likely be discharged home within the next 1-2 days. CAMDEN AG MD November 06, 2018 21:06
[2018-11-06] MEDS ORDERED: fentaNYL 100 MCG/2 ML INJECTION (J3010) IV PRN (21:30)
[2018-11-06 21:48] LABS: HEMATOCRIT 36.5 % (42.0-52.0); HEMOGLOBIN 11.9 g/dl (13.5-17.5); MEAN CORPUSCULAR HGB CONC 32.6 g/dl (32.0-36.5); MEAN CORPUSCULAR VOLUME 82.8 fl (80.0-96.0); PLATELET COUNT, AUTOMATED 224 10^3/uL (150-450); RED BLOOD COUNT 4.41 10^6/uL (4.30-6.10); WHITE BLOOD COUNT 11.2 10^3/uL (4.0-10.0)
[2018-11-06 21:50] VITALS: BP 144/62
[2018-11-06 22:01] LABS: BLOOD UREA NITROGEN 16 MG/DL (7-18); CALCIUM LEVEL 8.5 MG/DL (8.8-10.2); CARBON DIOXIDE LEVEL 26 MEQ/L (21-32); CHLORIDE LEVEL 107 MEQ/L (98-107); GLOMERULAR FILTRATION RATE > 60.0 (>42); GLUCOSE, FASTING 191 MG/DL (70-100); POTASSIUM SERUM 4.3 MEQ/L (3.5-5.1); SODIUM LEVEL 139 MEQ/L (136-145)
[2018-11-06] MEDS: HEPARIN SOD (PORCINE) 5000 UNITS/ML VIAL SC SCH (22:39)
[2018-11-06] MEDS: LISINOPRIL 5 MG TAB PO SCH (22:39)
[2018-11-06] MEDS: DOCUSATE SODIUM 100 MG CAP PO SCH (22:39)
[2018-11-06 23:20] VITALS: BP 145/60
[2018-11-07] VITALS (7 sets, daily range): BP systolic 134–148; BP diastolic 60–67
[2018-11-07] MEDS: ceFAZolin SOD 1 GM in D5W MINI-BAG PLUS 50 ML IV SCH ×2 (00:56→08:56)
[2018-11-07] MEDS: HEPARIN SOD (PORCINE) 5000 UNITS/ML VIAL SC SCH ×3 (05:50→21:58)
[2018-11-07 06:42] LABS: HEMATOCRIT 36.4 % (42.0-52.0); HEMOGLOBIN 11.7 g/dl (13.5-17.5); MEAN CORPUSCULAR HEMOGLOBIN 26.8 pg (27.0-33.0); MEAN CORPUSCULAR HGB CONC 32.1 g/dl (32.0-36.5); MEAN CORPUSCULAR VOLUME 83.3 fl (80.0-96.0); PLATELET COUNT, AUTOMATED 214 10^3/uL (150-450); RED BLOOD COUNT 4.37 10^6/uL (4.30-6.10); WHITE BLOOD COUNT 9.4 10^3/uL (4.0-10.0)
[2018-11-07 07:05] LABS: BLOOD UREA NITROGEN 18 MG/DL (7-18); CALCIUM LEVEL 8.7 MG/DL (8.8-10.2); CARBON DIOXIDE LEVEL 21 MEQ/L (21-32); CHLORIDE LEVEL 108 MEQ/L (98-107); CREATININE FOR GFR 1.05 MG/DL (0.70-1.30); GLOMERULAR FILTRATION RATE > 60.0 (>42); GLUCOSE, FASTING 146 MG/DL (70-100); POTASSIUM SERUM 5.4 MEQ/L (3.5-5.1); SODIUM LEVEL 135 MEQ/L (136-145)
[2018-11-07] MEDS: HumaLOG INSULIN (NovoLOG) PER UNIT SC SCH ×4 (07:30→21:00)
--- NOTE | 2018-11-07 07:44 | IPNPDOC ---
Subjective Review oF Systems Chief Complaint The patient is a 73-year-old male admitted with a reason for visit of Prostate Cancer. Events since Last Encounter No acute events o/n. Good pain control. No n/v. Has not ambulated yet. No chest pain or SOB. No f/c/ns. Objective Physical Examination General Exam: Alert, Cooperative, No Acute Distress ABDOMEN EXAM: Soft, Tenderness (mild), Other (incisions clean/dry/intact; JANE w/ serosanguinous output) Skin Exam: Nl turgor and temperature Neuro Exam: Normal Speech Psych Exam: Mental status NL, Mood NL Other physical findings catheter in place, draining yellow urine Vital Signs/I&O Vital Signs Date Time Temp Pulse Resp B/P (MAP) Pulse Ox O2 Delivery O2 Flow Rate FiO2 11/06/18 23:08 18 1.0 11/06/18 22:39 144/62 11/06/18 21:29 96.7 75 95 I&O- Last 24 Hours up to 6 AM 11/07/18 06:00 Intake Total 2100 ml Output Total 660 ml Balance 1440 ml Laboratory Data Labs 24H Laboratory Tests 2 11/06/18 13:14: Bedside Glucose (Misc Panel) 114H 11/06/18 21:02: Nucleated Red Blood Cells % (auto) 0.0, Anion Gap 6L, Glomerular Filtration Rate > 60.0, Blood Urea Nitrogen 16, Creatinine 1.10, Sodium Level 139, Potassium Level 4.3, Chloride Level 107, Carbon Dioxide Level 26, Calcium Level 8.5L 11/06/18 21:06: Bedside Glucose (Misc Panel) 187H 11/06/18 22:28: Bedside Glucose (Misc Panel) 167H 11/07/18 06:22: Nucleated Red Blood Cells % (auto) 0.0, Anion Gap 6L, Glomerular Filtration Rate > 60.0, Blood Urea Nitrogen 18, Creatinine 1.05, Sodium Level 135L, Potassium Level 5.4H, Chloride Level 108H, Carbon Dioxide Level 21, Calcium Level 8.7L CBC/BMP Laboratory Tests 11/06/18 21:02 Red Blood Count 4.41, Mean Corpuscular Volume 82.8, Mean Corpuscular Hemoglobin 27.0, Mean Corpuscular Hemoglobin Concent 32.6, Red Cell Distribution Width 15.0 H, Calcium Level 8.5 L 11/07/18 06:22 Red Blood Count 4.37, Mean Corpuscular Volume 83.3, Mean Corpuscular Hemoglobin 26.8 L, Mean Corpuscular Hemoglobin Concent 32.1, Red Cell Distribution Width 14.9 H, Calcium Level 8.7 L FSBS Laboratory Tests Test 11/06/18 13:14 11/06/18 21:06 11/06/18 22:28 Range/Units Bedside Glucose (Misc Panel) 114 187 167 83-110 MG/DL A-FIB/CHADSVASC A-FIB History Current/History of A-Fib/PAF?: No Current Oral Anticoagulant The: No Assessment/Plan Date Seen The patient was seen on 11/07/18. Patient Summary This is a 73 y/o M POD1 s/p RALP w/ BPLND. He is doing well. Labs are stable. K is mildly elevated. Will give lasix for this. UOP is ok. JANE output is minimal. Plan/VTE VTE Prophylaxis Ordered?: Yes VTE Exclusion Mechanical Proph: N/A:VTE Prophy Ordered VTE Exclusion Pharmacological: N/A:VTE Prophy Ordered Plan/Urinary Catheter Urinary Catheter: Other Catheter: (catheter will need to stay in for 7-10 days for healing of the vesicourethral anastomosis) Plan - d/c IVF - 10mg lasix IV - strict I/Os - percocet prn pain - SSI - SCDs when in bed - SQH - incentive spirometry - ambulate - CLD -> advance as tolerated - possible discharge home later today w/ catheter (will remove JANE drain prior to discharge) CAMDEN AG MD November 07, 2018 07:44
[2018-11-07] MEDS: ROSUVASTATIN 10 MG TAB (CRESTOR) PO SCH (08:56)
[2018-11-07] MEDS: PANTOPRAZOLE 40MG TAB (PROTONIX) PO SCH (08:56)
[2018-11-07] MEDS: amLODIPine 5 MG TAB PO SCH (08:56)
[2018-11-07] MEDS: DOCUSATE SODIUM 100 MG CAP PO SCH ×2 (08:56→21:58)
[2018-11-07] MEDS: DULoxetine 30 MG CAP (CYMBALTA) PO SCH (08:56)
[2018-11-07] MEDS: EZETIMIBE 10 MG TAB (ZETIA) PO SCH (08:56)
[2018-11-07] MEDS ORDERED: FUROSEMIDE 20 MG/2 ML VIAL (J1940) IV ONE (09:00)
[2018-11-07] MEDS: PERCOCET 5MG/325MG TAB PO PRN ×2 (10:42→20:29)
[2018-11-07] MEDS: LISINOPRIL 5 MG TAB PO SCH (21:58)
[2018-11-08] MEDS: HEPARIN SOD (PORCINE) 5000 UNITS/ML VIAL SC SCH (05:55)
[2018-11-08] MEDS: PERCOCET 5MG/325MG TAB PO PRN (05:56)
[2018-11-08 06:00] VITALS: BP 151/69
[2018-11-08 06:47] LABS: HEMATOCRIT 36.8 % (42.0-52.0); HEMOGLOBIN 11.7 g/dl (13.5-17.5); MEAN CORPUSCULAR HGB CONC 31.8 g/dl (32.0-36.5); MEAN CORPUSCULAR VOLUME 84.8 fl (80.0-96.0); PLATELET COUNT, AUTOMATED 213 10^3/uL (150-450); RED BLOOD COUNT 4.34 10^6/uL (4.30-6.10); WHITE BLOOD COUNT 7.5 10^3/uL (4.0-10.0)
[2018-11-08 07:13] LABS: BLOOD UREA NITROGEN 14 MG/DL (7-18); CALCIUM LEVEL 8.6 MG/DL (8.8-10.2); CARBON DIOXIDE LEVEL 30 MEQ/L (21-32); CHLORIDE LEVEL 101 MEQ/L (98-107); CREATININE FOR GFR 0.98 MG/DL (0.70-1.30); GLOMERULAR FILTRATION RATE > 60.0 (>42); GLUCOSE, FASTING 250 MG/DL (70-100); POTASSIUM SERUM 4.2 MEQ/L (3.5-5.1); SODIUM LEVEL 135 MEQ/L (136-145)
--- NOTE | 2018-11-08 07:40 | IPNPDOC ---
Subjective Review oF Systems Chief Complaint The patient is a 73-year-old male admitted with a reason for visit of Prostate Cancer. Events since Last Encounter No acute events o/n. Good pain control. No n/v. Ambulating well. Passing small amounts of flatus. No f/c/ns. Objective Physical Examination General Exam: Alert, Cooperative, No Acute Distress ABDOMEN EXAM: Soft, Tenderness (mild), Other (incisions clean/dry/intact; JANE w/ serosanguinous output) Skin Exam: Nl turgor and temperature Neuro Exam: Normal Speech Psych Exam: Mental status NL, Mood NL Other physical findings catheter draining clear urine Vital Signs/I&O Vital Signs Date Time Temp Pulse Resp B/P (MAP) Pulse Ox O2 Delivery O2 Flow Rate FiO2 11/08/18 05:56 18 11/07/18 22:00 97.6 72 148/67 (94) 93 11/07/18 06:00 1.0 I&O- Last 24 Hours up to 6 AM 11/08/18 05:59 Intake Total 1460 ml Output Total 1325 ml Balance 135 ml Laboratory Data Labs 24H Laboratory Tests 2 11/07/18 07:59: POC pH (Misc Panel) 7.220*L, POC Base Excess (Misc Panel) -1.0, POC Saturated Percent O2 (Misc) 97, POC pO2 (Misc Panel) 116.0H, POC pCO2 (Misc Panel) 65.5*H, POC HCO3 (Misc Panel) 26.8H, POC Glucose (Misc Panel) 182H, POC Sodium (Misc Panel) 138, POC Potassium (Misc Panel) 4.2, POC Total CO2 (Misc Panel) 29.0H, POC Ionized Calcium (Misc Panel) 5.0, POC Hemoglobin (Misc) 11.9L, POC Hematocrit (Misc Panel) 35.0L 11/07/18 11:53: Bedside Glucose (Misc Panel) 250H 11/07/18 16:36: Bedside Glucose (Misc Panel) 233H 11/07/18 21:08: Bedside Glucose (Misc Panel) 211H 11/08/18 05:49: Nucleated Red Blood Cells % (auto) 0.0, Anion Gap 4L, Glomerular Filtration Rate > 60.0, Blood Urea Nitrogen 14, Creatinine 0.98, Sodium Level 135L, Potassium Level 4.2#, Chloride Level 101, Carbon Dioxide Level 30, Calcium Level 8.6L CBC/BMP Laboratory Tests 11/08/18 05:49 Red Blood Count 4.34, Mean Corpuscular Volume 84.8, Mean Corpuscular Hemoglobin 27.0, Mean Corpuscular Hemoglobin Concent 31.8 L, Red Cell Distribution Width 15.4 H, Calcium Level 8.6 L FSBS Laboratory Tests Test 11/07/18 11:53 11/07/18 16:36 11/07/18 21:08 Range/Units Bedside Glucose (Misc Panel) 250 233 211 83-110 MG/DL A-FIB/CHADSVASC A-FIB History Current/History of A-Fib/PAF?: No Current Oral Anticoagulant The: No Assessment/Plan Date Seen The patient was seen on 11/08/18. Patient Summary This is a 73 y/o M POD2 s/p RALP w/ BPLND. He feels well. Labs w/i normal limits. Good UOP. Minimal output from JANE drain. Plan/VTE VTE Prophylaxis Ordered?: Yes VTE Exclusion Mechanical Proph: N/A:VTE Prophy Ordered VTE Exclusion Pharmacological: N/A:VTE Prophy Ordered Plan/Urinary Catheter Urinary Catheter: Other Catheter: (catheter will need to stay in for 7-10 days for healing of the vesicourethral anastomosis) Plan - d/c JANE drain - cont home meds except plavix - SSI - SQH - SCDs when in bed - percocet prn pain - incentive spirometry - ambulate - regular diet - discharge home w/ catheter CAMDEN AG MD November 08, 2018 07:40
[2018-11-08 08:25] VITALS: BP 151/69
[2018-11-08] MEDS: amLODIPine 5 MG TAB PO SCH (08:25)
[2018-11-08] MEDS: DULoxetine 30 MG CAP (CYMBALTA) PO SCH (08:25)
[2018-11-08] MEDS: ROSUVASTATIN 10 MG TAB (CRESTOR) PO SCH (08:25)
[2018-11-08] MEDS: HumaLOG INSULIN (NovoLOG) PER UNIT SC SCH (08:25)
[2018-11-08] MEDS: EZETIMIBE 10 MG TAB (ZETIA) PO SCH (08:25)
[2018-11-08] MEDS: PANTOPRAZOLE 40MG TAB (PROTONIX) PO SCH (08:25)
[2018-11-08] MEDS: DOCUSATE SODIUM 100 MG CAP PO SCH (08:25)
--- NOTE | 2018-11-08 11:40 | DSES ---
DATE OF ADMISSION: 11/06/2018 DATE OF DISCHARGE: 11/08/2018 ADMISSION DIAGNOSIS: Prostate cancer. DISCHARGE DIAGNOSIS: Prostate cancer. ADMITTING PHYSICIAN: Josue Karimi MD DISCHARGING PHYSICIAN: Josue Karimi MD PROCEDURES PERFORMED: Robotic assisted laparoscopic radical prostatectomy with bilateral pelvic lymph node dissection on November 06, 2018. HISTORY OF PRESENT ILLNESS: This is a 73-year-old male who underwent the above listed procedure on November 06, 2018 and was admitted to the hospital postoperatively. HOSPITALIZATION COURSE: The patient's postoperative course was unremarkable. On postoperative day 1 he was ambulating well, but did have mild to moderate incisional pain. Because of that he was not ready for discharge home on postoperative day 1. By postoperative day 2, his pain was better controlled. He was tolerating a regular diet. He was ambulating well. All of his labs were within normal limits. He had excellent urine output from his catheter and minimal output from his Kingsley-Mora drain. His Kingsley-Mora drain was therefore removed on postoperative day 2. He was deemed for discharge home on postoperative day [address] in [address]. He will follow-up in the clinic in approximately one week for catheter removal and to discuss the pathology results.
[2018-11-09] MEDS ORDERED: LISI-542 PO (15:03)
[2018-11-09] MEDS ORDERED: METF-723 PO (15:03)
[2018-11-09] MEDS ORDERED: DULO60CA35 PO (15:03)
[2018-11-09] MEDS ORDERED: VITA100014 PO (15:03)
== END 2018-11-08 10:50 | disposition home or self-care (01) | DRG 708 ==
LOC: M OR 11-06 12:21 → M MS5PR 11-06 21:40
PROVIDERS: ADMIT Urology; ATTEND Urology
PROC: 07BC4ZX Excision of Pelvis Lymphatic, Percutaneous Endoscopic Approach, Diagnostic (ICD-10-PCS; 2018-11-06)
PROC: 8E0W4CZ Robotic Assisted Procedure of Trunk Region, Percutaneous Endoscopic Approach (ICD-10-PCS; 2018-11-06)
PROC: 0VT04ZZ Resection of Prostate, Percutaneous Endoscopic Approach (ICD-10-PCS; principal; 2018-11-06 13:00)
DX: C61 Malignant neoplasm of prostate (principal); Z79.899 Other long term (current) drug therapy; Z79.4 Long term (current) use of insulin; E11.40 Type 2 diabetes mellitus with diabetic neuropathy, unspecified; I10 Essential (primary) hypertension; G47.33 Obstructive sleep apnea (adult) (pediatric); E78.5 Hyperlipidemia, unspecified; E66.9 Obesity, unspecified; K21.9 Gastro-esophageal reflux disease without esophagitis; E78.2 Mixed hyperlipidemia; E53.8 Deficiency of other specified B group vitamins; E55.9 Vitamin D deficiency, unspecified; N40.1 Benign prostatic hyperplasia with lower urinary tract symptoms; I25.10 Atherosclerotic heart disease of native coronary artery without angina pectoris

== ENCOUNTER → 2018-10-29 | Outpatient (REF) | payer MEDICARE, OTHER ==
[~2018-10-29] MED LIST changes: +VENTAER IN; -VENTAER INH
== END ==
LOC: M SMT 12:57
PROVIDERS: ATTEND Urology
DX: Z01.818 Encounter for other preprocedural examination (principal); C61 Malignant neoplasm of prostate; N39.0 Urinary tract infection, site not specified

== ENCOUNTER 2018-11-09 10:38 | Inpatient (IN) | payer MEDICARE, OTHER ==
[~2018-11-09] VITALS: Ht 175.3 cm; Wt 97.1 kg
[~2018-11-09 10:38] MED LIST changes: +B-122500 PO; +LISI-1046 PO; -VENTAER IN; +VENTAER INH
[2018-11-09 11:42] LABS: BASO % 0.2 % (0.0-1.0); EOS % 0.3 % (0.0-3.0); HEMATOCRIT 35.8 % (42.0-52.0); HEMOGLOBIN 11.5 g/dl (13.5-17.5); LYMPH # 0.5 10^3/uL (1.5-4.5); MEAN CORPUSCULAR HEMOGLOBIN 27.1 pg (27.0-33.0); MEAN CORPUSCULAR HGB CONC 32.1 g/dl (32.0-36.5); MEAN CORPUSCULAR VOLUME 84.2 fl (80.0-96.0); MONO # 0.4 10^3/uL (0.0-0.8); MONO % 5.4 % (0.0-5.0); NEUTROPHILS # 5.6 10^3/uL (1.8-7.7); NEUTROPHILS % 86.6 % (36.0-66.0); PLATELET COUNT, AUTOMATED 184 10^3/uL (150-450); RED BLOOD COUNT 4.25 10^6/uL (4.30-6.10); WHITE BLOOD COUNT 6.5 10^3/uL (4.0-10.0)
[2018-11-09 11:53] LABS: INR 0.96; PROTHROMBIN TIME 12.9 SECONDS (12.1-14.4)
[2018-11-09 12:11] LABS: ALBUMIN 3.1 GM/DL (3.2-5.2); ALT/SGPT 22 U/L (12-78); BILIRUBIN,DIRECT 0.2 MG/DL (0.0-0.2); BILIRUBIN,TOTAL 0.7 MG/DL (0.2-1.0); BLOOD UREA NITROGEN 16 MG/DL (7-18); CALCIUM LEVEL 9.1 MG/DL (8.8-10.2); CARBON DIOXIDE LEVEL 31 MEQ/L (21-32); CHLORIDE LEVEL 100 MEQ/L (98-107); CREATININE FOR GFR 1.23 MG/DL (0.70-1.30); GLOMERULAR FILTRATION RATE > 60.0 (>42); GLUCOSE, FASTING 361 MG/DL (70-100); LIPASE 54 U/L (73-393); POTASSIUM SERUM 4.4 MEQ/L (3.5-5.1); SODIUM LEVEL 135 MEQ/L (136-145)
[2018-11-09] MEDS ORDERED: NS 1,000 ML IV ONE ×2 (12:30)
[2018-11-09] MEDS ORDERED: ISOVUE-370 76% 100ML VIAL (Q9967) As Ordered ONE (12:36)
--- NOTE | 2018-11-09 13:49 | REP ---
REASON: Abdominal pain. COMPARISON: Multiple, latest 10/05/2018. The technique utilized in obtaining the radiograph has magnified the cardiac silhouette and accentuated the interstitial markings. Since the last examination subcutaneous emphysema has developed bilaterally. This limited examination obtained portably and with cephalic angulation shows no evidence of a gross pneumothorax. A small pneumothorax could be obscured. There is cardiomegaly accentuated by technique. Note is again made of previous median sternotomy. Since the last examination mild right sided CP angle blunting has developed, but too is accentuated by technique. There are no abnormal patchy parenchymal opacities. IMPRESSION: 1. Bilateral subcutaneous emphysema of uncertain etiology, correlate clinically. 2. Technique as described above. 3. Possible small right pleural effusion. 4. PA and lateral views of the chest are recommended. Electronically Signed by Wiley Saravia DO 11/09/2018 02:42 P
--- NOTE | 2018-11-09 13:55 | REP ---
CT ABDOMEN AND PELVIS WITH IV CONTRAST: TECHNIQUE: Axial contrast enhanced images from the lung bases to the pubic symphysis using 100 mL Isovue 370 intravenous contrast material with multiplanar reformations. Visualized lung bases demonstrate mild atelectatic changes. There is scattered air in the soft tissues of the abdominal wall and chest wall. Small amount of air is seen in the bladder which is collapsed around a Orellana catheter. Patient reportedly had prostatectomy yesterday. Diffuse edema is seen in the lower pelvis with a tiny amount of free fluid all likely postsurgical in nature. No bowel wall thickening is seen. There is no evidence of bowel obstruction. The appendix is normal. A few small gallstones are seen in the gallbladder. There is a small right adrenal adenoma approximately 1 cm in diameter. There are bilateral renal cysts without hydronephrosis. IMPRESSION: Diffuse scattered air in abdominal wall and chest wall soft tissues, diffuse edema and tiny amount of free fluid in the inferior pelvis, all likely postsurgical in nature. No evidence of bowel wall thickening or obstruction. A few small gallstones in the gallbladder. Bilateral renal cysts without hydronephrosis. Orellana catheter in a collapsed urinary bladder. Unreviewed
[2018-11-09] MEDS ORDERED: CIPROFLOXACIN 400 MG in APPROPRIATE DILUENT 1 EA IV ONE (14:00)
[2018-11-09] MEDS ORDERED: MORPHINE 2 MG/ML 1ML SYRINGE (J2270) IV PRN (14:00)
[2018-11-09] MEDS ORDERED: METF-723 PO (15:03)
[2018-11-09] MEDS ORDERED: LISI-542 PO (15:03)
[2018-11-09] MEDS ORDERED: DULO60CA35 PO (15:03)
[2018-11-09] MEDS ORDERED: VITA100014 PO (15:03)
[2018-11-09] MEDS ORDERED: ONDANSETRON 4MG/2ML VIAL (J2405) IV ONE (15:15)
[2018-11-09] MEDS: NS 1,000 ML IV SCH ×2 (16:00→21:08)
[2018-11-09] MEDS ORDERED: ONDANSETRON 4MG/2ML VIAL (J2405) IV PRN (16:15)
[2018-11-09] MEDS ORDERED: GLUCAGON FOR INJ 1 MG VIAL (J1610) SC PRN (16:15)
[2018-11-09] MEDS ORDERED: GLUCOSE 4 GM CHEW TABLET PO PRN (16:15)
[2018-11-09] MEDS ORDERED: MORPHINE 4 MG/ML 1ML VIAL/SYRINGE (J2270) IV PRN (16:15)
[2018-11-09] MEDS ORDERED: DEXTROSE 50% 50 ML SYRINGE IV PRN (16:15)
[2018-11-09] MEDS ORDERED: ALBUTEROL 90 MCG/ACT 8GM HFA INHALER INH PRN (16:15)
[2018-11-09] MEDS: HumaLOG INSULIN (NovoLOG) PER UNIT SC SCH (18:00)
--- NOTE | 2018-11-09 18:16 | SMCUROLCON ---
Urology Consultation General Date of Consultation 11/09/18 Reason For Consultation This patient is seen for Orthostatic Hypotension Subcutaneous Emphysema. s/p robotic prosatectomy on 11/06 and now with abdominal discomfort. No n,v,d . No fefvers. Paitnet states starr thte pain is concentrated in the RLQ along the area of the port. No fevers, no chills, no penile or catheter related pain History of Present Illness The patient is a 73-year-old male with a past medical history for prostate CA, s/p robotics, hx of CABG. C.o mild rild calf tenderness. Past Medical History Medical History as above Surgical Hstory Robotic prosatate 11/06 with subsequent drain removal yesterday and d/c Family History Significant Family History: No pertinent family hx Social History * Smoker: non-smoker Alcohol: occationally Medications Current Medications Current Medications Albuterol Sulfate (Proventil, Ventolin Hfa) 2 puff Q4HP PRN INH SOB/WHEEZING; Start 11/09/18 at 16:15 Dextrose (Dextrose 50%) 25 ml ASDIRECTED PRN IV SEE LABEL COMMENTS; Start 11/09/18 at 16:15 Glucagon (Glucagon) 1 mg ASDIRECTED PRN SC SEE LABEL COMMENTS; Start 11/09/18 at 16:15 Glucose (Glucose) 16 GM ASDIRECTED PRN PO SEE LABEL COMMENTS; Start 11/09/18 at 16:15 Home Med (Med Rec Complete!) ASDIRECTED XX ; Start 11/09/18 at 15:15; Stop 11/09/18 at 15:15; Status DC Insulin Detemir (Levemir Insulin) 20 units BID SC ; Start 11/09/18 at 21:00 Insulin Human Lispro (HumaLOG INSULIN) SEE PROTOCOL TABLE Q6H SC ; Start 11/09/18 at 18:00 Morphine Sulfate (Morphine Sulfate Inj) 2 mg Q30M PRN IV MODERATE PAIN (PS 5-7) Last administered on 11/09/18at 14:39; Start 11/09/18 at 14:00 Morphine Sulfate (Morphine Sulfate Inj) 2 mg Q4HP PRN IV PAIN; Start 11/09/18 at 16:15 Ondansetron HCl (ZOFRAN INJection) 4 mg Q4HP PRN IV NAUSEA OR VOMITING; Start 11/09/18 at 16:15 Sodium Chloride 1,000 ml @ 100 mls/hr Q10H IV Last administered on 11/09/18at 16:00; Start 11/09/18 at 16:00 Allergies Allergies: Coded Allergies: No Known Allergies (Unverified , 11/06/18) Review of Systems General: Reports: Other Symptoms (nausea is gradually improving today) Gastrointestinal: Reports: Abdominal Pain (RLQ; + N) Musculoskeletal: Reports: Leg Pain (right calf) Physical Examination Abdomen Exam: Other (Robotic port sites and midline extraction site are all clean and dry without evidence of cellulitis. No discharge. Drain site clean as well. Tender along the RLQ site. No rebound/ guarding or peritoneal signs) Vital Signs/I&O Vital Signs Date Time Temp Pulse Resp B/P (MAP) Pulse Ox O2 Delivery O2 Flow Rate FiO2 11/09/18 16:47 98.0 11/09/18 16:38 64 94 Room Air 11/09/18 16:30 141/61 (87) 11/09/18 14:49 18 Laboratory Data 24H Labs Laboratory Tests 2 11/09/18 11:31: Immature Granulocyte % (Auto) 0.5, White Blood Count 6.5, Red Blood Count 4.25L, Hemoglobin 11.5L, Hematocrit 35.8L, Mean Corpuscular Volume 84.2, Mean Corpuscular Hemoglobin 27.1, Mean Corpuscular Hemoglobin Concent 32.1, Red Cell Distribution Width 15.1H, Platelet Count 184, Neutrophils (%) (Auto) 86.6H, Lymphocytes (%) (Auto) 7.0L, Monocytes (%) (Auto) 5.4H, Eosinophils (%) (Auto) 0.3, Basophils (%) (Auto) 0.2, Neutrophils # (Auto) 5.6, Lymphocytes # (Auto) 0.5L, Monocytes # (Auto) 0.4, Eosinophils # (Auto) 0.0, Basophils # (Auto) 0.0, Nucleated Red Blood Cells % (auto) 0.0, Prothrombin Time 12.9, Prothromb Time International Ratio 0.96, Anion Gap 4L, Glomerular Filtration Rate > 60.0, Calcium Level 9.1, Aspartate Amino Transf (AST/SGOT) 11, Alanine Aminotransferase (ALT/SGPT) 22, Alkaline Phosphatase 67, Total Bilirubin 0.7, Direct Bilirubin 0.2, Total Protein 7.0, Albumin 3.1L, Albumin/Globulin Ratio 0.79L, Lipase 54L 11/09/18 14:19: Urine Color YELLOW, Urine Appearance HAZY, Urine pH 5.0, Urine Specific [place] 1.056, Urine Protein 2+H, Urine Glucose (UA) 3+H, Urine Ketones TRACEH, Urine Blood 3+H, Urine Nitrite NEGATIVE, Urine Bilirubin NEGATIVE, Urine Urobilinogen 0.2, Urine Leukocyte Esterase TRACEH, Urine WBC (Auto) 24H, Urine RBC (Auto) TNTCH, Urine Hyaline Casts (Auto) 0, Urine Bacteria (Auto) NEGATIVE, Urine Squamous Epithelial Cells 0, Urine Mucus (Auto) SMALL, Urine Sperm (Auto) CBC/BMP Laboratory Tests 11/09/18 11:31 Red Blood Count 4.25 L, Mean Corpuscular Volume 84.2, Mean Corpuscular Hemoglobin 27.1, Mean Corpuscular Hemoglobin Concent 32.1, Red Cell Distribution Width 15.1 H, Neutrophils (%) (Auto) 86.6 H, Lymphocytes (%) (Auto) 7.0 L, Monocytes (%) (Auto) 5.4 H, Eosinophils (%) (Auto) 0.3, Basophils (%) (Auto) 0.2, Neutrophils # (Auto) 5.6, Lymphocytes # (Auto) 0.5 L, Monocytes # (Auto) 0.4, Eosinophils # (Auto) 0.0, Basophils # (Auto) 0.0 Microbiology Microbiology 11/09/18 Blood Culture, Received Pending 11/09/18 Blood Culture, Received Pending 11/09/18 Urine Culture, Received Pending Assessment Prostate cancer s.p Robotic prostatectomy with abdominal pain . CT reviewed Visualized lung bases demonstrate mild atelectatic changes. There is scattered air in the soft tissues of the abdominal wall and chest wall. Small amount of air is seen in the bladder which is collapsed around a Orellana catheter. Patient reportedly had prostatectomy yesterday. Diffuse edema is seen in the lower pelvis with a tiny amount of free fluid all likely postsurgical in nature. No bowel wall thickening is seen. There is no evidence of bowel obstruction. The appendix is normal. A few small gallstones are seen in the gallbladder. There is a small right adrenal adenoma approximately 1 cm in diameter. There are bilateral renal cysts without hydronephrosis. IMPRESSION: Diffuse scattered air in abdominal wall and chest wall soft tissues, diffuse edema and tiny amount of free fluid in the inferior pelvis, all likely postsurgical in nature. No evidence of bowel wall thickening or obstruction. A few small gallstones in the gallbladder. Bilateral renal cysts without hydronephrosis. Orellana catheter in a collapsed urinary bladder. I have reivewed the CT and have alos noted that a loop of bowel appears adherent at the level of tenderness however no evidence of obstruction. Plan Admit; hydrate; r/o DVT; WBC 6.5 Most likely ileus however will observe for early SBO however no evidence of such on CT Time Spent on Consult: Time Spent / Consult (Minutes): 45 JOY MEJIA MD November 09, 2018 18:16
[2018-11-09 18:50] VITALS: BP 131/78
--- NOTE | 2018-11-09 19:19 | ECGEPIP ---
Stationary ECG Study [facility] - ED Test Date: 2018-11-09 Pat Name: NOÉ BLOUNT Department: Room: - Gender: M [employer]: : 1945 Requested By: Elise Montano Order Number: [id number] Reading MD: Jimmy Eden Measurements Intervals [place] Rate: 60 P: 37 MO: 154 QRS: 105 QRSD: 120 T: 86 QT: 393 QTc: 395 Interpretive Statements SINUS RHYTHM RIGHT AXIS DEVIATION PROBABLE INFERIOR MYOCARDIAL INFARCTION, PROBABLY OLD MODERATE INTRAVENTRICULAR CONDUCTION DELAY SIMILAR TO 10/05/18 Electronically Signed On 11-09-2018 19:19:11 EDT by Jimmy Eden
--- NOTE | 2018-11-09 19:23 | REP ---
Duplex extremity venous ultrasound: Bilateral lower extremity. History: Bilateral leg swelling. Question DVT. Findings: The deep veins are anechoic and fully compressible from the groin to the popliteal fossa in the left and right lower extremity. Color flow imaging is homogeneous. Spectral Doppler interrogation demonstrates intact respiratory variation in flow and normal manual augmentation of flow. There is no evidence of deep vein thrombosis. Impression: Negative bilateral lower extremity duplex venous ultrasound. No evidence of deep vein thrombosis. Electronically Signed by Berto Santoyo MD 11/09/2018 07:15 P
[2018-11-09 20:00] VITALS: BP 133/60
[2018-11-09] MEDS: LEVEMIR (INSULIN DETEMIR) 1 UNITS/0.01ML SC SCH (21:00)
--- NOTE | 2018-11-09 22:14 | HPE ---
DATE OF ADMISSION: 11/09/2018 PRIMARY CARE PROVIDER: Dr. Roxana Colin UROLOGIST: Dr. Karimi SCALE CLERK: Dr. Joseph HISTORY OF PRESENT ILLNESS: This patient is a 73-year-old gentleman with a past medical history significant for coronary artery disease, status post coronary artery bypass graft (CABG), who has insulin dependent diabetes, hypertension, dyslipidemia, depression, posttraumatic stress disorder (PTSD), prostate cancer, presented to [facility] on November 09, 2018 with complaint of persistent nausea and vomiting. The patient had a recent admission from November 06 to November 08 for his prostate, status post prostatectomy November 06, 2018. The patient was discharged home on November 08, 2018. According to the patient, the patient was fine on the night of discharge. However, this morning the patient stated having lightheadedness, resulting in near syncope episodes. The patient also continued to have persistent nausea and vomiting. The patient also complained about significant abdominal pain; therefore the patient came to [facility] for further evaluation. The patient denies any fever or chills. Denies any chest pain or shortness of breath. The pain is mainly localized around the area where he had instrument insertion site. Denied any other associated symptoms. PAST MEDICAL HISTORY: 1. Coronary artery disease, status post coronary artery bypass graft (CABG). 2. Insulin-dependent diabetes with diabetic neuropathy. 3. Hypertension. 4. Obstructive sleep apnea on CPAP. 5. Dyslipidemia. 6. Depression. 7. Gastroesophageal reflux disease (GERD). 8. Posttraumatic stress disorder (PTSD). 9. Prostate cancer. PAST SURGICAL HISTORY: 1. Shrapnel of the right arm in 1966 2. Lumbar back surgery in 1992. 3. Coronary artery bypass graft (CABG) in 1994, five vessels. 4. Prostatectomy November 062018. ALLERGIES: No known drug allergies. SOCIAL HISTORY: The patient quit smoking in 1970. Drinks wine rarely. No recreational drug use. REVIEW OF SYSTEMS: GENERAL: No fever, no chills. HEENT: No vision changes. No auditory changes. CARDIOVASCULAR: No chest pain or palpitations. RESPIRATORY: No shortness of breath. No cough. No sputum production. GASTROINTESTINAL (GI): Persistent nausea, vomiting since this morning. The patient also complained about persistent abdominal pain. MUSCULOSKELETAL: Denied any swellings. Denied any muscle pain or joint pain. NEUROLOGICAL: The patient has diabetic neuropathy. Complained about chronic hand and foot numbness and tingling sensations. OBJECTIVE: VITAL SIGNS: Temperature is 96.8, pulse is 69, respiratory rate is 18, blood pressure is 148/60, pulse oximetry 96% on room air. GENERAL: Moderate stress secondary to persistent nausea, vomiting. The patient is alert and awake. HEENT: Normocephalic, atraumatic. Extraocular motors grossly intact. CARDIOVASCULAR: Distant heart sounds. Positive heart murmurs. LUNGS: Clear to auscultation bilaterally. ABDOMEN: Decreased bowel sound. There is some tenderness to palpation most significant in the left lower quadrant where he had a drainage placement. MUSCULOSKELETAL: No significant lower extremity swellings. NEUROLOGICAL: Decreased sensation of bilateral hands and bilateral feet. Muscle strength 5/5. LABORATORY DATA: White blood count (WBC) is 6.5, hemoglobin 11.5, hematocrit 35.8, platelet count is 184. Sodium is 135, potassium 4.4, chloride 100, carbon dioxide 31, BUN 16, creatinine 1.23, glomerular filtration rate (GFR) greater than 60, fasting glucose 361, calcium 9.1, total bilirubin 0.7, direct bilirubin 0.2, AST 11, ALT is 22, alkaline phosphatase is 67, total protein is 7, albumin 3.1, lipase is 54, PT is 12.9, INR is 0.96. IMAGING STUDY: Portable chest x-ray showed bilateral subacute emphysema. Possible small right pleural effusion. CT of abdomen and pelvis with IV contrast showed diffuse scattered air in the abdominal wall and chest wall soft tissues, diffuse edema and tiny amount of free fluid in the inferior pelvis, all likely postsurgical in nature. No evidence of bowel wall thickening or obstruction. A few small gallstones in the gallbladder. Bilateral renal cyst without hydronephrosis. Orellana catheter in collapsed urinary bladder. ASSESSMENT AND PLAN: 1. Persistent nausea, vomiting. Suspect adverse affect of the previous surgery. Admitted to the PCU on the inpatient services. The patient will be nothing by mouth, IV support. Case discussed with Dr. Karimi who was involved in the procedures. Dr. Rodriguez, the oncologist urologist, will be consulted. 2. Subacute tinea emphysema of the chest wall and abdominal wall. The patient has recent prostatectomy on November 06, 2018. Continue pain control. Continue to monitor the patient. Also, continue conservative medical management at this moment. 3. Orthostatic hypertension. While in the emergency room, orthostatic blood pressure was measured. The patient had systolic drop from 112 to 75 and the patient had a near syncopal episode at home. The patient was continued on fluid resuscitations. Controlled nausea, vomiting with IV medications. 4. Prostate cancer status post robotic prostatectomy performed November 06, 2018. Dr. Karimi was discussed the pathology report with the patient during the followup. 5. Coronary artery disease, status post coronary artery bypass graft (CABG). Coronary artery bypass graft (CABG) in 1994, five bypass was performed. Due to the intractable nausea, vomiting, all oral medication on hold at this moment. 6. Insulin-dependent diabetes. The patient nothing by mouth on fluid support. Will taper down to low acting insulin and place on sliding scale every 6 hours. 7. Hypertension. Currently, the patient also hypotension. The patient also is not able to tolerate oral intake, although the patient in PCU in case the patient requires IV blood pressure medications. At the baseline, the patient using amlodipine, lisinopril. 8. Depression. Sertraline will be on hold, duloxetine will be on hold. 9. Obstructive sleep apnea. Family member will bring the CPAP for the patient. 10. Posttraumatic stress disorder (PTSD). Continue to monitor. 11. Dyslipidemia. Statin on hold. 12. History of agent orange exposure in [place]. 13. Deep vein thrombosis (DVT) prophylaxis. The patient will be on ORTIZ compression. MTDD
[2018-11-09 23:59] VITALS: BP 144/52
[2018-11-10] VITALS (8 sets, daily range): BP systolic 113–180; BP diastolic 54–80
[2018-11-10 05:14] LABS: HEMATOCRIT 32.2 % (42.0-52.0); HEMOGLOBIN 10.5 g/dl (13.5-17.5); MEAN CORPUSCULAR HEMOGLOBIN 27.3 pg (27.0-33.0); MEAN CORPUSCULAR HGB CONC 32.6 g/dl (32.0-36.5); MEAN CORPUSCULAR VOLUME 83.6 fl (80.0-96.0); PLATELET COUNT, AUTOMATED 183 10^3/uL (150-450); RED BLOOD COUNT 3.85 10^6/uL (4.30-6.10); WHITE BLOOD COUNT 5.5 10^3/uL (4.0-10.0)
[2018-11-10 05:35] LABS: BLOOD UREA NITROGEN 11 MG/DL (7-18); CALCIUM LEVEL 8.3 MG/DL (8.8-10.2); CARBON DIOXIDE LEVEL 30 MEQ/L (21-32); CHLORIDE LEVEL 108 MEQ/L (98-107); CREATININE FOR GFR 0.87 MG/DL (0.70-1.30); GLOMERULAR FILTRATION RATE > 60.0 (>42); GLUCOSE, FASTING 69 MG/DL (70-100); MAGNESIUM LEVEL 1.6 MG/DL (1.8-2.4); POTASSIUM SERUM 3.7 MEQ/L (3.5-5.1); SODIUM LEVEL 141 MEQ/L (136-145)
[2018-11-10] MEDS: HumaLOG INSULIN (NovoLOG) PER UNIT SC SCH ×4 (05:43→17:16)
[2018-11-10] MEDS: NS 1,000 ML IV SCH (06:49)
[2018-11-10] MEDS ORDERED: KCL 20MEQ IN D5/NS 1000ML 1,000 ML IV SCH (07:45)
[2018-11-10] MEDS: LEVEMIR (INSULIN DETEMIR) 1 UNITS/0.01ML SC SCH ×2 (09:00→21:33)
[2018-11-10] MEDS: amLODIPine 5 MG TAB PO SCH (09:28)
[2018-11-10] MEDS: LISINOPRIL 10 MG TAB PO SCH (09:28)
[2018-11-10] MEDS: DULoxetine 30 MG CAP (CYMBALTA) PO SCH (09:29)
[2018-11-10] MEDS: ROSUVASTATIN 10 MG TAB (CRESTOR) PO SCH (09:29)
[2018-11-10] MEDS: SERTRALINE HCL 50 MG TAB PO SCH (09:29)
[2018-11-10] MEDS: SENOKOT S TAB PO PRN (11:41)
--- NOTE | 2018-11-10 14:09 | IPNPDOC ---
Subjective Review oF Systems Chief Complaint The patient is a 73-year-old male admitted with a reason for visit of Orthostatic Hypotension Subcutaneous Emphysema. Events since Last Encounter Feelilng better over the last 24 hr. Still with RLQ discomfort. Tolerated ice cream this AM Constitutional: Denies: Fever, Chills, Sweats, Weakness, Malaise Genitourinary: Denies: Dysuria, Frequency, Incontinence, Hematuria Objective Physical Examination ABDOMEN EXAM: Soft (mild RLQ tenderness along the region of the lap port; no crepitus; no peritoneal sings) Male Exam: Normal Genital Exam (cath in place and draining well ), Lesions, Edema, Erythema, Tenderness, Discharge, Mass, Hernia, Normal Prostate, Normal Sphincter Tone Other physical findings no calf tenderness Vital Signs/I&O Vital Signs Date Time Temp Pulse Resp B/P (MAP) Pulse Ox O2 Delivery O2 Flow Rate FiO2 11/10/18 12:59 140/70 (93) 11/10/18 09:28 77 11/10/18 07:38 98.0 20 93 11/09/18 16:38 Room Air I&O- Last 24 Hours up to 6 AM 11/10/18 06:00 Intake Total 3450 ml Output Total 1625 ml Balance 1825 ml Laboratory Data Labs 24H Laboratory Tests 2 11/09/18 14:19: Urine Color YELLOW, Urine Appearance HAZY, Urine pH 5.0, Urine Specific [place] 1.056, Urine Protein 2+H, Urine Glucose (UA) 3+H, Urine Ketones TRACEH, Urine Blood 3+H, Urine Nitrite NEGATIVE, Urine Bilirubin NEGATIVE, Urine Urobilinogen 0.2, Urine Leukocyte Esterase TRACEH, Urine WBC (Auto) 24H, Urine RBC (Auto) TNTCH, Urine Hyaline Casts (Auto) 0, Urine Bacteria (Auto) NEGATIVE, Urine S quamous Epithelial Cells 0, Urine Mucus (Auto) SMALL, Urine Sperm (Auto) 11/09/18 18:13: Bedside Glucose (Misc Panel) 187H 11/09/18 20:52: Bedside Glucose (Misc Panel) 131H 11/10/18 00:31: Bedside Glucose (Misc Panel) 91 11/10/18 02:48: Bedside Glucose (Misc Panel) 75L 11/10/18 04:25: Bedside Glucose (Misc Panel) 71L 11/10/18 04:41: Nucleated Red Blood Cells % (auto) 0.0, Anion Gap 3L, Glomerular Filtration Rate > 60.0, Blood Urea Nitrogen 11, Creatinine 0.87, Sodium Level 141, Potassium Level 3.7, Chloride Level 108H, Carbon Dioxide Level 30, Calcium Level 8.3L, Magnesium Level 1.6L 11/10/18 06:35: Bedside Glucose (Misc Panel) 74L 11/10/18 11:42: Bedside Glucose (Misc Panel) 143H CBC/BMP Laboratory Tests 11/10/18 04:41 Red Blood Count 3.85 L, Mean Corpuscular Volume 83.6, Mean Corpuscular Hemoglobin 27.3, Mean Corpuscular Hemoglobin Concent 32.6, Red Cell Distribution Width 15.1 H, Calcium Level 8.3 L FSBS Laboratory Tests Test 11/09/18 18:13 11/09/18 20:52 11/10/18 00:31 11/10/18 02:48 Range/Units Bedside Glucose (Misc Panel) 187 131 91 75 83-110 MG/DL Test 11/10/18 04:25 11/10/18 06:35 11/10/18 11:42 Range/Units Bedside Glucose (Misc Panel) 71 74 143 83-110 MG/DL Microbiology Microbiology 11/09/18 Blood Culture, Received Pending 11/09/18 Blood Culture, Received Pending 11/09/18 Urine Culture, Received Pending A-FIB/CHADSVASC A-FIB History Current/History of A-Fib/PAF?: No Current Oral Anticoagulant The: No Treatment Treatment ordered: NONE Reason Anticoagulant not given: Other (post op) Assessment/Plan Date Seen The patient was seen on 11/10/18. Patient Summary Gradual improvement and now passing flatus. US negative for DVT. Continue IV hydration x 24 hours. May advance diet as tolerated Plan/VTE VTE Prophylaxis Ordered?: No Plan Continue present care. Maintain IV fluids. JOY MEJIA MD November 10, 2018 14:09
[2018-11-10] MEDS ORDERED: GLUCOSE 4 GM CHEW TABLET PO PRN (14:15)
[2018-11-10] MEDS ORDERED: DEXTROSE 50% 50 ML SYRINGE IV PRN (14:15)
[2018-11-10] MEDS ORDERED: GLUCAGON FOR INJ 1 MG VIAL (J1610) SC PRN (14:15)
[2018-11-10] MEDS: KCL 20MEQ IN D5/NS 1000ML 1,000 ML IV SCH (14:31)
--- NOTE | 2018-11-10 20:09 | IPN ---
DATE: 11/10/2018 SUBJECTIVE: Patient seen and examined in the room today. Patient stated his nausea and vomiting have been under control. Patient ready for a trial of oral intake, advance as tolerated. Denied any fevers or chills. OBJECTIVE: VITAL SIGNS: Temperature is 98, pulse is 66, respirations 20, blood pressure 152/72, pulse oximetry 93% in room air. GENERAL: No sign of acute distress. Alert and awake, comfortable. HEENT: Normocephalic, atraumatic. Extraocular motor grossly intact. CARDIOVASCULAR: Positive S1, S2, regular rate. LUNGS: Clear to auscultation bilaterally. ABDOMEN: Surgical wound noted. No active drainage. Nontender. Bowel sounds present. EXTREMITIES: No edema. LABORATORY DATA: WBC is 5.5, hemoglobin 10.5, hematocrit 32.2, platelet count is 183. Sodium is 140, potassium 3.7, chloride 108, carbon dioxide 30, BUN 11, creatinine 0.87, GFR greater than 60, fasting glucose is 69, calcium 8.3, magnesium 1.6. ASSESSMENT AND PLAN: 1. Persistent nausea and vomiting, suspected secondary to adverse effect from previous surgery. Urology is consulted. Symptoms have resolved. Will advance his diet as tolerated. On intravenous (IV) support. 2. Subcutaneous emphysema of the chest wall and abdominal wall. Continue conservative medical management. Patient had a recent prostatectomy on 11/06/2018. 3. Orthostatic hypotension. Patient did have a significant gastrointestinal (GI) loss, persistent vomiting. Orthostatic hypotension resolved. Continue to monitor. 4. Prostate cancer status post robotic prostatectomy on 11/06/2018. Patient will continue to follow with Dr. Karimi in outpatient setting for pathology report. Patient should continue the Orellana catheter. 5. Coronary artery disease, status post coronary artery bypass graft (CABG) in 1994. 6. Insulin-dependent diabetes, on IV fluid support, on insulin. 7. Hypertension. Continue to adjust blood pressure medication as needed. 8. Depression, on sertraline and duloxetine. 9. NICHOLE, on CPAP. 10. Posttraumatic stress disorder (PTSD). Continue to monitor. 11. Dyslipidemia, on statin. 12. History of Agent [place] exposure in [place]. 13. Deep vein thrombosis (DVT) prophylaxis, on thromboembolic deterrent stockings (TEDS) and compression.
[2018-11-10] MEDS ORDERED: PRAZOSIN 1 MG CAP PO SCH (21:00)
[2018-11-10] MEDS ORDERED: HumaLOG INSULIN (NovoLOG) PER UNIT SC SCH (21:00)
[2018-11-10] MEDS ORDERED: LISINOPRIL 5 MG TAB PO SCH (21:00)
[2018-11-11] MEDS: KCL 20MEQ IN D5/NS 1000ML 1,000 ML IV SCH (03:52)
[2018-11-11 06:00] VITALS: BP_SYST 106; BP_SYST 138; BP_SYST 159; BP_DIAS 55; BP_DIAS 66; BP_DIAS 70
[2018-11-11 06:02] LABS: HEMATOCRIT 31.8 % (42.0-52.0); HEMOGLOBIN 10.3 g/dl (13.5-17.5); MEAN CORPUSCULAR HEMOGLOBIN 26.4 pg (27.0-33.0); MEAN CORPUSCULAR HGB CONC 32.4 g/dl (32.0-36.5); MEAN CORPUSCULAR VOLUME 81.5 fl (80.0-96.0); PLATELET COUNT, AUTOMATED 200 10^3/uL (150-450); WHITE BLOOD COUNT 5.1 10^3/uL (4.0-10.0)
[2018-11-11 06:19] LABS: BLOOD UREA NITROGEN 7 MG/DL (7-18); CALCIUM LEVEL 8.5 MG/DL (8.8-10.2); CARBON DIOXIDE LEVEL 27 MEQ/L (21-32); CHLORIDE LEVEL 106 MEQ/L (98-107); CREATININE FOR GFR 0.82 MG/DL (0.70-1.30); GLOMERULAR FILTRATION RATE > 60.0 (>42); GLUCOSE, FASTING 238 MG/DL (70-100); MAGNESIUM LEVEL 1.6 MG/DL (1.8-2.4); POTASSIUM SERUM 3.9 MEQ/L (3.5-5.1); SODIUM LEVEL 139 MEQ/L (136-145)
[2018-11-11] MEDS: DULoxetine 30 MG CAP (CYMBALTA) PO SCH (08:09)
[2018-11-11] MEDS: ROSUVASTATIN 10 MG TAB (CRESTOR) PO SCH (08:09)
[2018-11-11] MEDS: SERTRALINE HCL 50 MG TAB PO SCH (08:09)
[2018-11-11] MEDS: HumaLOG INSULIN (NovoLOG) PER UNIT SC SCH ×2 (08:10→12:29)
[2018-11-11] MEDS: LISINOPRIL 10 MG TAB PO SCH (08:12)
[2018-11-11 08:13] VITALS: BP 154/74
[2018-11-11] MEDS: amLODIPine 5 MG TAB PO SCH (08:13)
[2018-11-11] MEDS: SENOKOT S TAB PO PRN (08:21)
[2018-11-11] MEDS ORDERED: LEVEMIR (INSULIN DETEMIR) 1 UNITS/0.01ML SC SCH (09:00)
[2018-11-11] MEDS ORDERED: PANTOPRAZOLE 40MG TAB (PROTONIX) PO SCH (09:00)
[2018-11-11] MEDS ORDERED: amLODIPine 5 MG TAB PO SCH (09:00)
[2018-11-11] MEDS ORDERED: MIRALAX *UNIT DOSE* 17GM PACKET PO SCH (09:00)
[2018-11-11] MEDS ORDERED: VITAMIN D 1,000 INTERNATIONAL UNITS TABLET PO SCH (09:00)
[2018-11-11] MEDS ORDERED: SENN-52 PO (09:01)
[2018-11-11] MEDS ORDERED: ZOFR4TAB16 PO (09:01)
--- NOTE | 2018-11-11 13:46 | REP ---
KUB: TWO VIEWS. HISTORY: Constipation versus ileus. FINDINGS: Two views of the abdomen demonstrate a normal bowel gas pattern. There is a small quantity of stool in the descending colon. No large or small bowel dilation is seen. There are multiple bubbles of extra abdominal gas in the right flank soft tissues. This is noted on recent CT study from November 09, 2018 and is presumed to be postoperative. No bony abnormalities seen. Psoas margins are intact. IMPRESSION: Normal bowel gas pattern. Postoperative air in the extra-abdominal soft tissues visible along the right flank. Electronically Signed by Berto Santoyo MD 11/11/2018 02:45 P
--- NOTE | 2018-11-11 13:50 | IPNPDOC ---
Subjective Review oF Systems Chief Complaint The patient is a 73-year-old male admitted with a reason for visit of Orthostatic Hypotension Subcutaneous Emphysema. Events since Last Encounter Feeeling better; No BM; Tolerating diet Objective Physical Examination ABDOMEN EXAM: Soft (mild RLQ tenderness along the region of the lap port; no crepitus; no peritoneal sings) Male Exam: Normal Genital Exam (cath in place and draining well ), Lesions, Edema, Erythema, Tenderness, Discharge, Mass, Hernia, Normal Prostate, Normal Sphincter Tone Vital Signs/I&O Vital Signs Date Time Temp Pulse Resp B/P (MAP) Pulse Ox O2 Delivery O2 Flow Rate FiO2 11/11/18 12:59 18 11/11/18 08:13 65 154/74 11/10/18 22:00 98.3 94 11/09/18 16:38 Room Air I&O- Last 24 Hours up to 6 AM 11/11/18 06:00 Intake Total 2620 ml Output Total 2950 ml Balance -330 ml Laboratory Data Labs 24H Laboratory Tests 2 11/10/18 17:12: Bedside Glucose (Misc Panel) 191H 11/10/18 20:41: Bedside Glucose (Misc Panel) 228H 11/11/18 05:30: Nucleated Red Blood Cells % (auto) 0.0, Anion Gap 6L, Glomerular Filtration Rate > 60.0, Blood Urea Nitrogen 7, Creatinine 0.82, Sodium Level 139, Potassium Level 3.9, Chloride Level 106, Carbon Dioxide Level 27, Calcium Level 8.5L, Magnesium Level 1.6L 11/11/18 12:07: Bedside Glucose (Misc Panel) 263H CBC/BMP Laboratory Tests 11/11/18 05:30 Red Blood Count 3.90 L, Mean Corpuscular Volume 81.5, Mean Corpuscular Hemoglobin 26.4 L, Mean Corpuscular Hemoglobin Concent 32.4, Red Cell Distribution Width 15.1 H, Calcium Level 8.5 L FSBS Laboratory Tests Test 11/10/18 17:12 11/10/18 20:41 11/11/18 12:07 Range/Units Bedside Glucose (Misc Panel) 191 228 263 83-110 MG/DL Microbiology Microbiology 11/09/18 Blood Culture - Preliminary, Resulted No growth after 24 hours . All specim... 11/09/18 Blood Culture - Preliminary, Resulted No growth after 24 hours . All specim... 11/09/18 Urine Culture - Final, Complete A-FIB/CHADSVASC A-FIB History Current/History of A-Fib/PAF?: No Current Oral Anticoagulant The: No Age/Risk Factor Scoring CHADSVASC: CHADSVASC Response (Comments) Value Age Risk Factor Age 65-74 years old 1 Total 1 Treatment Treatment ordered: NONE Assessment/Plan Date Seen The patient was seen on 11/11/18. Plan/VTE VTE Prophylaxis Ordered?: No Plan KUB reviewed. No evidence of obstruction . WBC 5.1 Stable urologically for discharge and for OP f/u with JOY Knox MD November 11, 2018 13:50
[2018-11-11 14:00] VITALS: BP 169/76
--- NOTE | 2018-11-11 20:23 | DSES ---
DATE OF ADMISSION: 11/09/2018 DATE OF DISCHARGE: 11/11/2018 PRIMARY CARE PROVIDER: Roxana Colin CONSULTANTS: Urologist, Dr. Gregory DISCHARGE DIAGNOSES: 1. Persistent nausea and vomiting, suspect secondary to postoperative adverse effect. 2. Subcutaneous emphysema of the chest wall and abdominal wall. 3. Orthostatic hypotension. 4. Prostate cancer, status post robotic prostatectomy. 5. Coronary artery disease, status post coronary artery bypass graft (CABG). 6. Insulin-dependent diabetes. 7. Hypertension. 8. Depression. 9. Obstructive sleep apnea on continuous positive airway pressure (CPAP). 10. Posttraumatic stress disorder (PTSD). 11. Dyslipidemia. 12. History of Agent Flint exposure in [place]. HOSPITALIZATION COURSE: The patient is a 73-year-old gentleman who had a robotic surgery on 11/06/2018 for his prostate cancer. The patient was discharged on 11/08/2018 and in 24 hours the patient started having intractable nausea and vomiting. The patient came to [facility] for further evaluation. The patient was admitted under the hospitalist service. Imaging studies demonstrate that the patient has subcutaneous emphysema of the chest wall and abdominal wall. The patient was started on IV fluids and the patient was nothing by mouth. Symptomatic control with IV medications. The patient was evaluated by consulting urologist, who recommended continue with medical management. Later, with better control of nausea and vomiting, the patient's diet was restarted and advanced as tolerated. The patient tolerated the diet advancement well. On 11/11/2018, the patient was determined stable for discharge with recommendations to continue the Orellana catheter. The patient should follow with the urologist, Dr. Karimi, at the scheduled time. The patient will discuss the pathology report with Dr. Karimi in the outpatient setting. VITAL SIGNS: On the day of discharge, temperature is 97.3, pulse 75, respirations 18, blood pressure 169/76, pulse oximetry 96% on room air. LABORATORY DATA: On the day of discharge, WBC 5.1, hemoglobin 10.3, hematocrit 31.8, platelet count is 200. Sodium is 139, potassium 3.9, chloride 103, carbon dioxide 27, BUN 7, creatinine 0.82, GFR greater than 60, fasting glucose 238, calcium 8.5, magnesium 1.6. Microbiology: Blood cultures from 11/09/2018, preliminary results showed no growth after 48 hours times two sets. Urine culture from 11/09/2018 showed negative. Imaging studies: Chest x-ray on 11/09/2018 demonstrated bilateral subcutaneous emphysema. Possible small right pleural effusion. CT of the abdomen and pelvis with IV contrast on 11/09/2018 demonstrated diffuse scattered air in the abdominal wall and chest wall soft tissue, diffuse edema and tiny amount of free fluid in the inferior pelvis, most likely post surgical in nature. No evidence of bowel wall thickening or obstruction. A few small gallstones in the gallbladder. Bilateral renal cysts without hydronephrosis. Orellana catheter in urinary bladder. Bilateral lower extremity ultrasound showed negative bilateral lower extremity duplex venous ultrasound. No evidence of deep vein thrombosis (DVT). Abdominal x-ray on 11/11/2018 showed normal bowel gas pattern. Postoperative air in the extraabdominal soft tissue visible along the right flank. DISCHARGE MEDICATIONS: - Zofran 4 mg by mouth every 6 to 8 hours as needed, two day supply - Senna plus one tablet by mouth twice a day as needed for constipation - Ventolin two puff inhalation every 4 hours as needed - Norvasc 5 mg by mouth daily - vitamin D 2000 units by mouth daily - vitamin B12 1000 mcg by mouth at night - duloxetine 60 mg by mouth daily - ezetimibe 10 mg by mouth daily - Lantus 42 units subcutaneous daily - Lisinopril 5 mg by mouth at night - metformin 1000 mg by mouth twice a day - multivitamin one tablet by mouth daily - pantoprazole 40 mg by mouth daily - prazosin 5 mg by mouth at night - rosuvastatin 40 mg by mouth daily - sertraline 50 mg by mouth daily DISCHARGE INSTRUCTIONS: Discontinue line, discharge home. Activity as tolerated. Consistent carbohydrate as tolerated. The patient should followup with primary care provider in 1 to 2 weeks. The patient should followup with Dr. Karimi on 11/13/2018 at the scheduled time for Orellana catheter reevaluation. The patient should discuss the pathology report with Dr. Karimi in the outpatient setting. Discharge condition is fair. Discharge time was greater than 30 minutes.
== END 2018-11-11 16:36 | disposition home or self-care (01) | DRG 392 ==
LOC: M ED 10:38 → M ED INP 15:27 → M PCU 17:55 → M MSPAV 11-10 13:55
PROVIDERS: ADMIT Internal Medicine; ATTEND Internal Medicine
DX: R11.2 Nausea with vomiting, unspecified (principal); I95.1 Orthostatic hypotension; I25.10 Atherosclerotic heart disease of native coronary artery without angina pectoris; Z95.1 Presence of aortocoronary bypass graft; E11.9 Type 2 diabetes mellitus without complications; I10 Essential (primary) hypertension; F32.9 Major depressive disorder, single episode, unspecified; G47.33 Obstructive sleep apnea (adult) (pediatric); E78.5 Hyperlipidemia, unspecified; F43.10 Post-traumatic stress disorder, unspecified; T81.82XA Emphysema (subcutaneous) resulting from a procedure, initial encounter; Z79.899 Other long term (current) drug therapy

== ENCOUNTER → 2018-11-14 | Outpatient (REF) | payer MEDICARE, OTHER ==
[~2018-11-14] MED LIST changes: +DULO60CA35 PO; +METF-723 PO; +SENN-52 PO; +VITA100014 PO; +ZOFR4TAB16 PO
[2018-11-14 11:34] LABS: HEMOGLOBIN A1c 8.4 %
[2018-11-14 12:27] LABS: ALT/SGPT 35 U/L (12-78); BILIRUBIN,TOTAL 0.7 MG/DL (0.2-1.0); BLOOD UREA NITROGEN 12 MG/DL (7-18); CALCIUM LEVEL 8.8 MG/DL (8.8-10.2); CARBON DIOXIDE LEVEL 26 MEQ/L (21-32); CHLORIDE LEVEL 103 MEQ/L (98-107); FOLATE 15.6 NG/ML; FREE T4 1.39 NG/DL (0.76-1.46); GLOMERULAR FILTRATION RATE > 60.0 (>42); GLUCOSE, FASTING 168 MG/DL (70-100); SODIUM LEVEL 140 MEQ/L (136-145); TOTAL 25(OH) VITAMIN D 35.8 NG/ML (30.0-100.0); TOTAL PROTEIN 6.7 GM/DL (6.4-8.2); VITAMIN B12 LEVEL 483 PG/ML
== END ==
LOC: M SFHCPLAZ 09:33
PROVIDERS: ATTEND Family Medicine
DX: I10 Essential (primary) hypertension (principal); E03.9 Hypothyroidism, unspecified; E11.40 Type 2 diabetes mellitus with diabetic neuropathy, unspecified; E55.9 Vitamin D deficiency, unspecified; E53.8 Deficiency of other specified B group vitamins; Z79.51 Long term (current) use of inhaled steroids

== ENCOUNTER → 2018-11-21 | Outpatient (REF) | payer MEDICARE, OTHER ==
[~2018-11-21] MED LIST changes: -EZET10TA PO; +EZET10TA21 PO
[2018-11-21 18:20] LABS: MAU/CREAT RATIO 151.3 MCG/MG (0.0-30.0)
== END ==
LOC: M SFHCPLAZ 15:10
PROVIDERS: ATTEND Family Medicine
DX: E11.40 Type 2 diabetes mellitus with diabetic neuropathy, unspecified (principal)
CPT/HCPCS: 36415; 82043; G0463

== ENCOUNTER → 2018-12-04 | Outpatient (CLI) | payer MEDICARE, OTHER | LOC: M SMT 11:21 | PROVIDERS: ATTEND Urology | DX: C61 Malignant neoplasm of prostate (principal) ==

== ENCOUNTER → 2019-01-09 | Outpatient (REF) | payer MEDICARE, OTHER ==
[2019-01-09 15:53] LABS: ALBUMIN 3.7 GM/DL (3.2-5.2); ALT/SGPT 24 U/L (12-78); BILIRUBIN,TOTAL 0.5 MG/DL (0.2-1.0); BLOOD UREA NITROGEN 22 MG/DL (7-18); CALCIUM LEVEL 9.1 MG/DL (8.8-10.2); CARBON DIOXIDE LEVEL 29 MEQ/L (21-32); CHLORIDE LEVEL 107 MEQ/L (98-107); GLOMERULAR FILTRATION RATE > 60.0 (>42); GLUCOSE, FASTING 173 MG/DL (70-100); POTASSIUM SERUM 5.1 MEQ/L (3.5-5.1); RHEUMATOID FACTOR QUANT < 10.0 IU/ML (<15.0); SODIUM LEVEL 140 MEQ/L (136-145)
[2019-01-09 15:54] LABS: BASO % 0.4 % (0.0-1.0); EOS # 0.1 10^3/uL (0.0-0.50); EOS % 1.4 % (0.0-3.0); HEMATOCRIT 38.2 % (42.0-52.0); HEMOGLOBIN 12.4 g/dl (13.5-17.5); LYMPH # 1.1 10^3/uL (1.5-4.5); LYMPH % 14.5 % (24.0-44.0); MEAN CORPUSCULAR HEMOGLOBIN 28.2 pg (27.0-33.0); MEAN CORPUSCULAR HGB CONC 32.5 g/dl (32.0-36.5); MEAN CORPUSCULAR VOLUME 86.8 fl (80.0-96.0); MONO # 0.5 10^3/uL (0.0-0.8); MONO % 6.6 % (0.0-5.0); NEUTROPHILS # 5.9 10^3/uL (1.8-7.7); NEUTROPHILS % 76.7 % (36.0-66.0); PLATELET COUNT, AUTOMATED 216 10^3/uL (150-450); WHITE BLOOD COUNT 7.7 10^3/uL (4.0-10.0)
[2019-01-09 16:45] LABS: ERYTHROCYTE SEDIMENTATION RATE 10 mm/hr (0-20)
== END ==
LOC: M SFHCPLAZ 13:56
PROVIDERS: ATTEND Family Medicine
DX: M25.551 Pain in right hip (principal); M25.552 Pain in left hip

== ENCOUNTER → 2019-01-09 | Outpatient (CLI) | payer MEDICARE, OTHER ==
[~2019-01-09] MED LIST changes: +CYAN100050 PO; -ROSU40TA3 PO; +ROSU40TA4 PO; -VITA100014 PO
--- NOTE | 2019-01-09 15:05 | REP ---
PELVIS, BILATERAL HIP: Five views. HISTORY: Left hip pain. Comparison study November 11, 2018. FINDINGS: The bony pelvic ring is intact. There is vascular calcification in the inguinal soft tissues bilaterally. Degenerative disc disease is seen in the lower lumbar spine. Femoral heads are smooth and rounded. There is mild acetabular spurring bilaterally. There is dystrophic calcification adjacent to the greater trochanter on the right which may reflect tendino-bursitis change. IMPRESSION: Mild bilateral hip osteoarthritis. Peritrochanteric calcification in the soft tissues on the right. Electronically Signed by Berto Santoyo MD 01/09/2019 04:39 P
== END ==
LOC: M SMT 14:25
PROVIDERS: ATTEND Family Medicine
DX: M16.0 Bilateral primary osteoarthritis of hip (principal); M25.552 Pain in left hip
CPT/HCPCS: 36415; 73502; 80053; 85025; 85652; 86140; 86431; G0463

== ENCOUNTER → 2019-02-15 | Outpatient (REF) | payer MEDICARE, OTHER ==
[~2019-02-15] MED LIST changes: -GLIM2TAB PO; +GLIM2TAB4 PO
[2019-02-15 10:12] LABS: HEMOGLOBIN A1c 8.3 %
== END ==
LOC: M SFHCPLAZ 08:20
PROVIDERS: ATTEND Family Medicine
DX: E11.40 Type 2 diabetes mellitus with diabetic neuropathy, unspecified (principal); C61 Malignant neoplasm of prostate

== ENCOUNTER → 2019-03-26 | Outpatient (REF) | payer MEDICARE, OTHER ==
[~2019-03-26] MED LIST changes: +GLIM2TAB PO; -GLIM2TAB4 PO
[2019-03-26 15:53] LABS: BASO % 0.4 % (0.0-1.0); EOS # 0.1 10^3/uL (0.0-0.5); EOS % 2.3 % (0.0-3.0); HEMATOCRIT 35.5 % (42.0-52.0); HEMOGLOBIN 11.5 g/dl (13.5-17.5); LYMPH % 21.4 % (24.0-44.0); MEAN CORPUSCULAR HEMOGLOBIN 28.2 pg (27.0-33.0); MEAN CORPUSCULAR HGB CONC 32.4 g/dl (32.0-36.5); MONO # 0.4 10^3/uL (0.0-0.8); NEUTROPHILS # 3.3 10^3/uL (1.5-8.5); NEUTROPHILS % 67.5 % (36.0-66.0); PLATELET COUNT, AUTOMATED 220 10^3/uL (150-450); RED BLOOD COUNT 4.08 10^6/uL (4.30-6.10); WHITE BLOOD COUNT 4.9 10^3/uL (4.0-10.0)
[2019-03-26 16:06] LABS: BLOOD UREA NITROGEN 15 MG/DL (7-18); CALCIUM LEVEL 8.5 MG/DL (8.8-10.2); CARBON DIOXIDE LEVEL 27 MEQ/L (21-32); CHLORIDE LEVEL 108 MEQ/L (98-107); CREATININE FOR GFR 1.01 MG/DL (0.70-1.30); GLOMERULAR FILTRATION RATE > 60.0 (>42); GLUCOSE, FASTING 190 MG/DL (70-100); POTASSIUM SERUM 4.4 MEQ/L (3.5-5.1); SODIUM LEVEL 143 MEQ/L (136-145)
== END ==
LOC: M LABDRAWP 14:30
PROVIDERS: ATTEND Internal Medicine Cardiovascular Disease
DX: R07.9 Chest pain, unspecified (principal)

== ENCOUNTER → 2019-04-17 | Outpatient (CLI) | payer MEDICARE, OTHER ==
[~2019-04-17] MED LIST changes: -GLIM2TAB PO; +GLIM2TAB2 PO
== END ==
LOC: M SMT 15:45
PROVIDERS: ATTEND Urology
DX: C61 Malignant neoplasm of prostate (principal)

== ENCOUNTER 2019-06-24 01:26 | Emergency (ER) | payer MEDICARE, OTHER ==
[~2019-06-24] VITALS: Ht 177.8 cm; Wt 90.9 kg
[2019-06-24] MEDS ORDERED: NS 1,000 ML IV ONE (02:30)
[2019-06-24 03:03] LABS: BASO % 0.4 % (0.0-1.0); EOS % 0.4 % (0.0-3.0); HEMATOCRIT 35.4 % (42.0-52.0); HEMOGLOBIN 11.1 g/dl (13.5-17.5); LYMPH # 0.9 10^3/uL (1.5-5.0); MEAN CORPUSCULAR HEMOGLOBIN 26.7 pg (27.0-33.0); MEAN CORPUSCULAR HGB CONC 31.4 g/dl (32.0-36.5); MEAN CORPUSCULAR VOLUME 85.1 fl (80.0-96.0); MONO # 0.5 10^3/uL (0.0-0.8); MONO % 6.3 % (0.0-5.0); NEUTROPHILS # 6.6 10^3/uL (1.5-8.5); NEUTROPHILS % 81.4 % (36.0-66.0); PLATELET COUNT, AUTOMATED 216 10^3/uL (150-450); RED BLOOD COUNT 4.16 10^6/uL (4.30-6.10); WHITE BLOOD COUNT 8.2 10^3/uL (4.0-10.0)
--- NOTE | 2019-06-24 03:06 | REPVR ---
PROCEDURE INFORMATION: Exam: CT Cervical Spine Without Contrast Exam date and time: 06/24/2019 2:51 AM Age: 74 years old Clinical indication: Neck pain; Additional info: Syncope TECHNIQUE: Imaging protocol: Computed tomography images of the cervical spine without contrast. Radiation optimization: All CT scans at this facility use at least one of these dose optimization techniques: automated exposure control; mA and/or kV adjustment per patient size (includes targeted exams where dose is matched to clinical indication); or iterative reconstruction. COMPARISON: No relevant prior studies available. FINDINGS: Vertebrae: Mild levoconvex curvature. Nonspecific straightening of the cervical lordosis. Vertebral body height and AP alignment is preserved. Moderate degenerative change about the dens. Moderate prevertebral osteophytosis. There are bilateral facet joint degenerative changes. No acute cervical spine fracture. Discs/Spinal canal/Neural foramina: Central canal stenosis greatest at C5-C6, likely moderate. Multilevel cervical foraminal stenoses. Soft tissues: Unremarkable. Lungs: Lung apices are normal. Pleural space: No visible pneumothorax. IMPRESSION: No acute cervical spine fracture. Electronically signed by: Veto Stone On 06/24/2019 03:05:32 AM
--- NOTE | 2019-06-24 03:20 | REPVR ---
PROCEDURE INFORMATION: Exam: CT Head Without Contrast Exam date and time: 06/24/2019 2:51 AM Age: 74 years old Clinical indication: Pain; Headache; Additional info: Syncope TECHNIQUE: Imaging protocol: Computed tomography of the head without contrast. Radiation optimization: All CT scans at this facility use at least one of these dose optimization techniques: automated exposure control; mA and/or kV adjustment per patient size (includes targeted exams where dose is matched to clinical indication); or iterative reconstruction. COMPARISON: CT Head without contrast 10/05/2018 4:40 PM FINDINGS: Brain: Decreased attenuation of the supratentorial white matter is likely secondary to chronic microvascular ischemia. No acute intracranial hemorrhage. Ventricles: Ventricular and subarachnoid spaces are age appropriate. Bones/joints: Unremarkable. No acute fracture. Sinuses: Visualized sinuses are unremarkable. No fluid levels. Mastoid air cells: Visualized mastoid air cells are well aerated. Soft tissues: Unremarkable. Vasculature: Intracranial vascular calcification. IMPRESSION: No acute intracranial abnormality. Electronically signed by: Veto Stone On 06/24/2019 03:19:54 AM
[2019-06-24 03:32] LABS: BLOOD UREA NITROGEN 26 MG/DL (7-18); CALCIUM LEVEL 8.7 MG/DL (8.8-10.2); CARBON DIOXIDE LEVEL 26 MEQ/L (21-32); CHLORIDE LEVEL 110 MEQ/L (98-107); CK-MB VALUE MASS 1.6 NG/ML (<3.6); CPK CREATINE PHOSPHOKINASE 54 U/L (39-308); CREATININE FOR GFR 1.04 MG/DL (0.70-1.30); GLOMERULAR FILTRATION RATE > 60.0 (>42); GLUCOSE, FASTING 194 MG/DL (70-100); MB/CK RELATIVE INDEX 2.96 (< OR =4); POTASSIUM SERUM 4.1 MEQ/L (3.5-5.1); SODIUM LEVEL 143 MEQ/L (136-145); TROPONIN I 0.03 NG/ML (< 0.10)
[2019-06-24 04:45] VITALS: BP 128/62
--- NOTE | 2019-06-24 08:11 | REP ---
Clinical: Syncope/near-syncopal episode . Comparison: 11/09/2018 . Findings: The mediastinum and cardiac silhouette are stable. Cardiomegaly and evidence of prior sternotomy and CABG again noted. The lung osman are clear without acute consolidation, effusion, or pneumothorax. Skeletal structures are intact. Impression: No acute cardiopulmonary process appreciated. Electronically Signed by Cristi Liu MD 06/24/2019 08:04 A
--- NOTE | 2019-06-24 08:41 | ECGEPIP ---
[facility] - ED Test Date: 2019-06-24 Pat Name: NOÉ BLOUNT Department: Room: - Gender: Male Care Aide: : 1945 Requested By: STACY Carmona Order Number: [id number] Reading MD: Jimmy Eden Measurements Intervals [place] Rate: 60 P: 50 AK: 159 QRS: 103 QRSD: 127 T: 99 QT: 432 QTc: 432 Interpretive Statements SINUS RHYTHM RIGHT AXIS DEVIATION POSSIBLE INFERIOR MYOCARDIAL INFARCTION, PROBABLY OLD MODERATE INTRAVENTRICULAR CONDUCTION DELAY SIMILAR TO 11/09/18 Electronically Signed on 06-24-2019 8:41:20 EST by Jimmy Eden
== END 2019-06-24 04:54 | disposition home or self-care (01) ==
LOC: EDSEX 01:26 → EDBD 01:26 → M ED 01:26
DX: I95.1 Orthostatic hypotension (principal); I25.10 Atherosclerotic heart disease of native coronary artery without angina pectoris; E11.9 Type 2 diabetes mellitus without complications; I10 Essential (primary) hypertension; Z86.73 Personal history of transient ischemic attack (TIA), and cerebral infarction without residual deficits; K21.9 Gastro-esophageal reflux disease without esophagitis; Z95.1 Presence of aortocoronary bypass graft; Z85.46 Personal history of malignant neoplasm of prostate; Z82.49 Family history of ischemic heart disease and other diseases of the circulatory system; Z79.4 Long term (current) use of insulin; Z79.899 Other long term (current) drug therapy

== ENCOUNTER → 2019-07-19 | Outpatient (CLI) | payer MEDICARE, OTHER ==
[~2019-07-19] MED LIST changes: -GLIM2TAB2 PO; +GLIM2TAB4 PO
== END ==
LOC: M PLALAB 10:50
PROVIDERS: ATTEND Urology
DX: C61 Malignant neoplasm of prostate (principal)

== ENCOUNTER → 2019-08-07 | Outpatient (CLI) | payer MEDICARE, OTHER ==
[2019-08-07 11:29] LABS: THYROID STIMULATING HORMONE 3.05 uIU/ML (0.358-3.740)
[2019-08-07 12:31] LABS: FOLATE 22.5 NG/ML (>5.4)
== END ==
LOC: M LAB 09:18
PROVIDERS: ATTEND Psychiatry & Neurology Neurology
DX: R41.3 Other amnesia (principal)

== ENCOUNTER → 2019-08-27 | Outpatient (REF) | payer MEDICARE, OTHER ==
[2019-08-27 12:52] LABS: BLOOD UREA NITROGEN 20 MG/DL (7-18); CALCIUM LEVEL 9.3 MG/DL (8.8-10.2); CARBON DIOXIDE LEVEL 30 MEQ/L (21-32); CHLORIDE LEVEL 108 MEQ/L (98-107); CREATININE FOR GFR 0.92 MG/DL (0.70-1.30); GLOMERULAR FILTRATION RATE > 60.0 (>42); GLUCOSE, FASTING 129 MG/DL (70-100); POTASSIUM SERUM 4.4 MEQ/L (3.5-5.1); SODIUM LEVEL 141 MEQ/L (136-145)
[2019-08-27 12:55] LABS: HEMATOCRIT 36.9 % (42.0-52.0); HEMOGLOBIN 12.6 g/dl (13.5-17.5); MEAN CORPUSCULAR HEMOGLOBIN 29.5 pg (27.0-33.0); MEAN CORPUSCULAR HGB CONC 34.1 g/dl (32.0-36.5); MEAN CORPUSCULAR VOLUME 86.4 fl (80.0-96.0); PLATELET COUNT, AUTOMATED 214 10^3/uL (150-450); RED BLOOD COUNT 4.27 10^6/uL (4.30-6.10); WHITE BLOOD COUNT 5.8 10^3/uL (4.0-10.0)
[2019-08-27 13:15] LABS: HEMOGLOBIN A1c 7.8 %
[2019-08-27 13:51] LABS: MAU/CREAT RATIO 262.5 MCG/MG (0.0-30.0)
== END ==
LOC: M SFHCPLAZ 08:37
PROVIDERS: ATTEND Family Medicine
DX: E11.40 Type 2 diabetes mellitus with diabetic neuropathy, unspecified (principal); I10 Essential (primary) hypertension; D64.9 Anemia, unspecified
CPT/HCPCS: 36415; 80048; 82043; 83036; 85027; G0463

== ENCOUNTER → 2019-09-02 | Outpatient (CLI) | payer MEDICARE, OTHER ==
[2019-09-02 11:25] LABS: HEMATOCRIT 34.9 % (42.0-52.0)
[2019-09-02 11:55] LABS: PERCENT SATURATION 14.7 % (19.7-50.0)
== END ==
LOC: M LAB 10:25
PROVIDERS: ATTEND Family Medicine
DX: D64.9 Anemia, unspecified (principal); S50.851A Superficial foreign body of right forearm, initial encounter; X58.XXXA Exposure to other specified factors, initial encounter; Y92.9 Unspecified place or not applicable

== ENCOUNTER → 2019-09-02 | Outpatient (CLI) | payer MEDICARE, OTHER ==
--- NOTE | 2019-09-02 11:26 | REP ---
RIGHT FOREARM, TWO VIEWS: Two views of the right forearm are performed. There is an irregular metallic foreign body in the soft tissues anterior to the proximal end of the radius. It measures 9 mm in maximum diameter. Underlying bones are unremarkable with no fracture or dislocation. There is mild spurring of the proximal ulna. IMPRESSION: Irregular metallic foreign body anterior to the proximal end of the radius 9 mm in diameter. Electronically Signed by Evaristo Lemus MD 09/02/2019 01:34 P
== END ==
LOC: M RAD 10:15
PROVIDERS: ATTEND Psychiatry & Neurology Neurology
DX: S50.851A Superficial foreign body of right forearm, initial encounter (principal); X58.XXXA Exposure to other specified factors, initial encounter; Y92.9 Unspecified place or not applicable

== ENCOUNTER → 2019-10-28 | Outpatient (REF) | payer MEDICARE, OTHER | LOC: M LABSMT 13:50 | PROVIDERS: ATTEND Urology | DX: C61 Malignant neoplasm of prostate (principal) ==

== ENCOUNTER → 2019-12-18 | Outpatient (REF) | payer MEDICARE, OTHER ==
[~2019-12-18] MED LIST changes: -LISI-1046 PO; +LISI2.5T2 PO
[2019-12-18 18:54] LABS: AMORPHOUS SEDIMENT LARGE (NEGATIVE); APPEARANCE, URINE TURBID (CLEAR); BACTERIA, URINE AUTO NEGATIVE (NEGATIVE); BILIRUBIN, URINE AUTO NEGATIVE (NEGATIVE); BLOOD, URINE BLOOD NEGATIVE (NEGATIVE); COLOR, URINE AMBER (YELLOW); GLUCOSE, URINE (UA) AUTO NEGATIVE (NEGATIVE); KETONE, URINE AUTO TRACE mg/dL (NEGATIVE); LEUKOCYTE ESTERASE, URINE AUTO NEGATIVE (NEGATIVE); MUCUS, URINE SMALL (NEGATIVE); NITRITE, URINE AUTO NEGATIVE (NEGATIVE); PROTEIN, URINE AUTO 2+ mg/dL (NEGATIVE); RBC, URINE AUTO 1 /HPF (0-3); SPECIFIC GRAVITY URINE AUTO 1.028 (1.002-1.035); SQUAMOUS EPITHELIAL CELL UR AU 0 /HPF (0-6); WBC, URINE AUTO 0 /HPF (0-3)
== END ==
LOC: M SMT 16:49
PROVIDERS: ATTEND Nurse Practitioner Family
DX: R32 Unspecified urinary incontinence (principal)
CPT/HCPCS: 51798; 81001; 87086; G0463

== ENCOUNTER → 2020-01-29 | Outpatient (REF) | payer MEDICARE, OTHER ==
[~2020-01-29] MED LIST changes: -AMLO10TA5 PO; +AMLO1TAB25 PO; -ASPI81TA85 PO; +ASPI81TA86 PO; +PANT40TA29 PO; -PANT40TA3 PO
[2020-02-24 08:44] LABS: APPEARANCE, URINE CLEAR (CLEAR); BACTERIA, URINE AUTO NEGATIVE (NEGATIVE); BILIRUBIN, URINE AUTO NEGATIVE (NEGATIVE); BLOOD, URINE BLOOD NEGATIVE (NEGATIVE); COLOR, URINE AMBER (YELLOW); GLUCOSE, URINE (UA) AUTO NEGATIVE (NEGATIVE); KETONE, URINE AUTO TRACE mg/dL (NEGATIVE); LEUKOCYTE ESTERASE, URINE AUTO NEGATIVE (NEGATIVE); MUCUS, URINE SMALL (NEGATIVE); NITRITE, URINE AUTO NEGATIVE (NEGATIVE); PROTEIN, URINE AUTO 2+ mg/dL (NEGATIVE); RBC, URINE AUTO 0 /HPF (0-3); SPECIFIC GRAVITY URINE AUTO 1.035 (1.002-1.035); SQUAMOUS EPITHELIAL CELL UR AU 0 /HPF (0-6); WBC, URINE AUTO 1 /HPF (0-3)
== END ==
LOC: M SMT 11:39
PROVIDERS: ATTEND Nurse Practitioner Family
DX: R30.0 Dysuria (principal)
CPT/HCPCS: 51798; 81001; 87086; G0463

== ENCOUNTER → 2020-04-21 | Outpatient (REF) | payer MEDICARE, OTHER | LOC: M PLALAB 12:30 | PROVIDERS: ATTEND Urology | DX: C61 Malignant neoplasm of prostate (principal) ==

== ENCOUNTER → 2020-07-09 | Outpatient (CLI) | payer MEDICARE, OTHER ==
--- NOTE | 2020-07-09 14:08 | REP ---
INDICATION: LBP. COMPARISON: Comparison is made with imaging from CT study of the abdomen and pelvis dated my November 09, 2018.. TECHNIQUE: Sagittal and axial T1 and T2-weighted scans are acquired in the usual fashion with and without fat saturation. Sequences include spin echo, turbo spin-echo, and STIR imaging sequences. FINDINGS: There is straightening of the normal lumbar lordosis. Diffuse degenerative spondylosis changes are noted. There is a subtle 2-3 mm degenerative grade 1 spondylolisthesis of L3 anterior with respect L4. There is no evidence of spondylolysis. The tip of the conus medullaris is normal in position and appearance at T12. No extra vertebral abnormality is appreciated. Axial and sagittal images taken at L1-L2 demonstrate moderate diffuse disc bulging and osteophytic ridging. There is osteophyte formation and prominent disc bulging in the left foraminal segment of the disc producing left neural foraminal narrowing. Canal size is borderline. At L 2 3, there is diffuse disc bulging effacing the ventral subarachnoid space. There is right-sided neural foraminal narrowing due to disc bulging and facet hypertrophy. Mild central canal stenosis is present. Midline AP dimension of the thecal sac at L2-3 is 9 mm. At L3-4, there is diffuse disc bulging. There is severe osteoarthritic facet disease bilaterally at L3-4 and mild central canal stenosis is present. Midline AP dimension of the thecal sac is 9 mm. There is right-sided neural foraminal narrowing due to facet hypertrophy and disc bulging. At L4-5, there is posterior discogenic spurring and minimal disc bulging. There is left-sided neural foraminal narrowing principally due to facet hypertrophy. Bilateral facet hypertrophy is present. No spinal stenosis is seen. No focal disc protrusion. At L5-S1, there is a central focal disc protrusion effacing the ventral epidural fat and contacting the ventral margin of the cord. No foraminal encroachment is seen. Facet hypertrophy is present bilaterally. IMPRESSION: Moderate degenerative spondylosis changes. Multilevel neural foraminal narrowing as described above bilaterally. Cyst central canal stenosis. Mild degenerative L3-4 spondylolisthesis with severe L3-4 facet hypertrophy bilaterally. Central disc protrusion at L5-S1. <Electronically signed by Keith Santoyo > 07/09/20 [id number]
== END ==
LOC: M RAD 12:35
PROVIDERS: ATTEND Family Medicine
DX: M25.78 Osteophyte, vertebrae (principal); M51.27 Other intervertebral disc displacement, lumbosacral region; M43.16 Spondylolisthesis, lumbar region

== ENCOUNTER → 2020-09-17 | Outpatient (CLI) | payer MEDICARE, OTHER ==
[~2020-09-17] MED LIST changes: -LISI-542 PO; +LISI-898 PO
[2020-09-17 12:31] LABS: PLATELET COUNT, AUTOMATED 168 10^3/uL (150-450)
[2020-09-17 12:39] LABS: INR 1.09; PROTHROMBIN TIME 14.3 SECONDS (12.5-14.3)
[2020-09-17 12:40] LABS: PARTIAL THROMBOPLASTIN TIME 52.3 SECONDS (24.2-38.5)
== END ==
LOC: M PLALAB 10:42
PROVIDERS: ATTEND Physician Assistant
DX: M47.817 Spondylosis without myelopathy or radiculopathy, lumbosacral region (principal); R79.1 Abnormal coagulation profile

== ENCOUNTER → 2020-10-22 | Outpatient (CLI) | payer MEDICARE, OTHER | LOC: M PLALAB 13:28 | PROVIDERS: ATTEND Physical Medicine & Rehabilitation | DX: Z01.818 Encounter for other preprocedural examination (principal); Z79.01 Long term (current) use of anticoagulants ==

== ENCOUNTER → 2020-10-26 | Outpatient (CLI) | payer MEDICARE, OTHER | LOC: M LAB 06:37 | PROVIDERS: ATTEND Physical Medicine & Rehabilitation | DX: Z01.812 Encounter for preprocedural laboratory examination (principal); Z79.01 Long term (current) use of anticoagulants ==

== ENCOUNTER → 2020-10-26 | Outpatient (REF) | payer MEDICARE, OTHER ==
[2020-10-26 11:38] LABS: HEMATOCRIT 37.6 % (42.0-52.0); HEMOGLOBIN 12.7 g/dl (13.5-17.5); MEAN CORPUSCULAR HEMOGLOBIN 31.4 pg (27.0-33.0); MEAN CORPUSCULAR HGB CONC 33.8 g/dl (32.0-36.5); MEAN CORPUSCULAR VOLUME 92.8 fl (80.0-96.0); PLATELET COUNT, AUTOMATED 178 10^3/uL (150-450); RED BLOOD COUNT 4.05 10^6/uL (4.30-6.10); WHITE BLOOD COUNT 4.1 10^3/uL (4.0-10.0)
[2020-10-26 12:19] LABS: BLOOD UREA NITROGEN 16 MG/DL (7-18); CALCIUM LEVEL 9.1 MG/DL (8.8-10.2); CARBON DIOXIDE LEVEL 30 MEQ/L (21-32); CHLORIDE LEVEL 109 MEQ/L (98-107); CHOLESTEROL LEVEL 179 MG/DL (<200); CHOLESTEROL RISK RATIO 3.729 (<5); CREATININE FOR GFR 0.93 MG/DL (0.70-1.30); FERRITIN 34 NG/ML (26-388); GLOMERULAR FILTRATION RATE > 60.0 (>42); GLUCOSE, FASTING 53 MG/DL (70-100); HDL CHOLESTEROL 48 MG/DL (>40); IRON (FE) 52 UG/DL (65-175); LDL CHOLESTEROL 116 MG/DL (<100); NON-HDL-C 131 MG/DL; PERCENT SATURATION 15.7 % (19.7-50.0); POTASSIUM SERUM 4.4 MEQ/L (3.5-5.1); PROSTATIC SPECIFIC AG MONITOR 0.17 NG/ML (< 4.00); SODIUM LEVEL 143 MEQ/L (136-145); TOTAL IRON BINDING CAPACITY 331 UG/DL (250-450); TRIGLYCERIDES LEVEL 77 MG/DL (<150)
[2020-10-26 12:34] LABS: HEMOGLOBIN A1c 6.2 %
[2020-10-26 12:55] LABS: VITAMIN B12 LEVEL 793 PG/ML (247-911)
== END ==
LOC: M SFHCPLAZ 08:45
PROVIDERS: ATTEND Family Medicine
DX: Z01.812 Encounter for preprocedural laboratory examination (principal); D50.9 Iron deficiency anemia, unspecified; E11.40 Type 2 diabetes mellitus with diabetic neuropathy, unspecified; E78.2 Mixed hyperlipidemia; I10 Essential (primary) hypertension; E03.9 Hypothyroidism, unspecified; R80.9 Proteinuria, unspecified; E53.8 Deficiency of other specified B group vitamins; C61 Malignant neoplasm of prostate; Z79.01 Long term (current) use of anticoagulants

== ENCOUNTER 2021-01-27 08:30 | Emergency (ER) | payer MEDICARE, OTHER ==
[~2021-01-27] VITALS: Ht 177.8 cm; Wt 98.2 kg
[~2021-01-27 08:30] MED LIST changes: +MULT-90 PO
--- NOTE | 2021-01-27 09:08 | REP ---
INDICATION: Syncope/near-syncope. COMPARISON: 06/24/2019 TECHNIQUE: AP portable upright, somewhat lordotic. FINDINGS: Sternotomy wires and clips from prior CABG noted. Lung osman are well inflated. And without the but dense consolidation or definite effusion. Heart size not enlarged for portable somewhat lordotic AP view. There is no vascular redistribution or edema. No abnormal widening of the mediastinum. Calcified aortic arch but without gross aneurysm. Airway intact. Bony thorax shows some degenerative changes in the spine. No free air under the diaphragm. IMPRESSION: 1. Status post sternotomy and CABG with no gross cardiomegaly, pulmonary edema, pleural effusion or acute infiltrate visible. <Electronically signed by Ham Thompson > 01/27/21 0951
--- NOTE | 2021-01-27 09:19 | REP ---
INDICATION: Syncope. COMPARISON: 06/24/2019. TECHNIQUE: CT brain performed in the axial plane. Coronal reconstructions are provided. FINDINGS: The lateral ventricles are midline, symmetric and without dilatation. Third and 4th ventricles are unremarkable. There is mild prominence of sulci of the temporal and frontal lobes but normal for age. Basal ganglia symmetric and normal. Some mild heterogeneous low-attenuation white matter changes bilaterally suggesting sclerotic small-vessel ischemic disease. There is no vascular territory infarct, mass or mass effect. No intracranial hemorrhage. Brainstem is unremarkable. Cerebellum shows minimal atrophy and no mass or posterior fossa hemorrhage. Basal cisterns are intact. Mastoids visualized sinuses are clear. There is calcifications in the carotid siphons. Skull base and calvarium show no fracture focal lesion. IMPRESSION: 1. Mild chronic small vessel white matter ischemic changes and some age related mild volume loss. No acute infarct, hemorrhage, mass or other acute intracranial abnormality. <Electronically signed by Ham Thompson > 01/27/21 0915
[2021-01-27 09:25] LABS: BASO % 0.5 % (0.0-1.0); EOS # 0.1 10^3/uL (0.0-0.5); EOS % 1.2 % (0.0-3.0); HEMATOCRIT 36.5 % (42.0-52.0); HEMOGLOBIN 12.6 g/dl (13.5-17.5); LYMPH # 1.3 10^3/uL (1.5-5.0); LYMPH % 21.2 % (24.0-44.0); MEAN CORPUSCULAR HEMOGLOBIN 30.7 pg (27.0-33.0); MEAN CORPUSCULAR HGB CONC 34.5 g/dl (32.0-36.5); MONO # 0.6 10^3/uL (0.0-0.8); MONO % 9.4 % (2.0-8.0); NEUTROPHILS % 67.4 % (36.0-66.0); PLATELET COUNT, AUTOMATED 200 10^3/uL (150-450)
[2021-01-27 09:47] LABS: BLOOD UREA NITROGEN 24 MG/DL (7-18); CALCIUM LEVEL 8.6 MG/DL (8.8-10.2); CARBON DIOXIDE LEVEL 27 MEQ/L (21-32); CHLORIDE LEVEL 107 MEQ/L (98-107); CK-MB VALUE MASS < 1.0 NG/ML (<3.6); CPK CREATINE PHOSPHOKINASE 58 U/L (39-308); CREATININE FOR GFR 1.06 MG/DL (0.70-1.30); GLOMERULAR FILTRATION RATE > 60.0 (>42); GLUCOSE, FASTING 164 MG/DL (70-100); MB/CK RELATIVE INDEX 1.72 (< OR =4); POTASSIUM SERUM 4.6 MEQ/L (3.5-5.1); SODIUM LEVEL 140 MEQ/L (136-145); TROPONIN I 0.02 NG/ML (< 0.10)
[2021-01-27 12:53] LABS: MB/CK RELATIVE INDEX 1.96 (< OR =4); TROPONIN I 0.03 NG/ML (< 0.10)
[2021-01-27 13:18] VITALS: BP 139/72
--- NOTE | 2021-01-28 07:32 | ECGEPIP ---
[facility] - ED Test Date: 2021-01-27 Pat Name: NOÉ BLOUNT Department: Room: - Gender: Male Pharmacy Assistant: maite : 1945 Requested By: Jimmy Triplett Order Number: [id number] Reading MD: Jimmy Eden Measurements Intervals [place] Rate: 65 P: 45 FL: 148 QRS: 107 QRSD: 110 T: 79 QT: 424 QTc: 440 Interpretive Statements Normal sinus rhythm Rightward axis POSSIBLE PRIOR INFERIOR INFARCT MODERATE INTRAVENTRICULAR CONDUCTION DELAY SIMILAR TO 06/24/19 Electronically Signed on 01-28-2021 7:31:55 EDT by Jimmy Eden
--- NOTE | 2021-01-28 07:38 | ECGEPIP ---
[facility] - ED Test Date: 2021-01-27 Pat Name: NOÉ BLOUNT Department: Room: - Gender: Male Education Diagnostician: KINGSLEY : 1945 Requested By: Jimmy Triplett Order Number: [id number] Reading MD: Jimmy Eden Measurements Intervals [place] Rate: 57 P: -1 CO: 158 QRS: 106 QRSD: 112 T: 109 QT: 438 QTc: 426 Interpretive Statements Sinus bradycardia Rightward axis POSSIBLE PRIOR INFERIOR INFARCT MODERATE INTRAVENTRICULAR CONDUCTION DELAY Nonspecific T wave abnormality SIMILAR TO PRIOR ON SAME DATE Electronically Signed on 01-28-2021 7:37:36 EDT by Jimmy Eden
== END 2021-01-27 13:27 | disposition home or self-care (01) ==
LOC: M ED 08:30
DX: R55 Syncope and collapse (principal); R42 Dizziness and giddiness; R00.1 Bradycardia, unspecified; I45.4 Nonspecific intraventricular block; E11.9 Type 2 diabetes mellitus without complications; I10 Essential (primary) hypertension; E78.5 Hyperlipidemia, unspecified; G47.33 Obstructive sleep apnea (adult) (pediatric); E66.9 Obesity, unspecified; F32.9 Major depressive disorder, single episode, unspecified; K21.9 Gastro-esophageal reflux disease without esophagitis; F43.10 Post-traumatic stress disorder, unspecified; N40.0 Benign prostatic hyperplasia without lower urinary tract symptoms; Z85.46 Personal history of malignant neoplasm of prostate; Z95.5 Presence of coronary angioplasty implant and graft; Z87.891 Personal history of nicotine dependence; Z95.1 Presence of aortocoronary bypass graft; Z79.4 Long term (current) use of insulin; Z79.899 Other long term (current) drug therapy

== ENCOUNTER 2021-02-11 07:59 | Emergency (ER) | payer MEDICARE, OTHER ==
[~2021-02-11] VITALS: Ht 177.8 cm; Wt 96.8 kg
[~2021-02-11 07:59] MED LIST changes: -LISI2.5T2 PO; +LISI2.5T9 PO
[2021-02-11] MEDS ORDERED: PLAV1TAB2 PO (08:09)
[2021-02-11] MEDS ORDERED: FURO20TA2 (08:11)
[2021-02-11] MEDS ORDERED: GABA-1171 (08:11)
[2021-02-11] MEDS ORDERED: ONDANSETRON 4MG/2ML VIAL IV ONE (08:35)
[2021-02-11] MEDS ORDERED: NS 1,000 ML IV SCH (08:35)
[2021-02-11 09:08] LABS: BASO % 0.2 % (0.0-1.0); EOS % 0.3 % (0.0-3.0); HEMATOCRIT 37.7 % (42.0-52.0); HEMOGLOBIN 12.5 g/dl (13.5-17.5); LYMPH # 0.7 10^3/uL (1.5-5.0); LYMPH % 12.2 % (24.0-44.0); MEAN CORPUSCULAR HEMOGLOBIN 29.6 pg (27.0-33.0); MEAN CORPUSCULAR HGB CONC 33.2 g/dl (32.0-36.5); MEAN CORPUSCULAR VOLUME 89.3 fl (80.0-96.0); MONO # 0.6 10^3/uL (0.0-0.8); MONO % 10.8 % (2.0-8.0); NEUTROPHILS # 4.4 10^3/uL (1.5-8.5); PLATELET COUNT, AUTOMATED 196 10^3/uL (150-450); RED BLOOD COUNT 4.22 10^6/uL (4.30-6.10); WHITE BLOOD COUNT 5.7 10^3/uL (4.0-10.0)
--- NOTE | 2021-02-11 09:15 | REP ---
INDICATION: trauma. COMPARISON: Comparison head CT study January 27, 2021.. TECHNIQUE: Helical scanning is acquired. 5 mm axial images were reformatted. Coronal MPR images were generated. FINDINGS: Bone window settings demonstrate an intact bony calvarium. There is no evidence of skull fracture or incidental bony calvarial lesion. The visualized paranasal sinuses appear clear. No intraorbital abnormality is seen. On soft tissue window setting images; the lateral, third, and fourth ventricles are normal in size and position. Lemus-white differentiation pattern is normal above and below the tentorium. There are is no evidence of intracranial hemorrhage. No mass, edema, infarction, or midline shift is seen. No extra-axial fluid collection is appreciated. Vascular calcification is noted in the distal internal carotid arteries bilaterally. There is generalized volume loss and mild small vessel change again noted. IMPRESSION: Generalized volume loss, vascular calcification, and mild small vessel changes as before. No traumatic abnormality noted. No acute intracranial finding.. <Electronically signed by Keith Santoyo > 02/11/21 0914
--- NOTE | 2021-02-11 09:18 | REP ---
INDICATION: trauma. COMPARISON: Comparison study 06/24/2019.. TECHNIQUE: Helical scanning is acquired and overlapping 2 mm high resolution axial images were generated and reviewed at bone and soft tissue window settings. Coronal and sagittal multiplanar re-formations images are generated. FINDINGS: There is no evidence of cervical spine element fracture. No skull base fracture is seen. Cervical vertebral body heights are preserved. Alignment is normal. Facet joints are normally aligned bilaterally at each cervical level on multiplanar re-formations images. There is no evidence of intraspinal or paraspinal hematoma. No extra vertebral abnormality is seen. There are degenerative disc changes as noted previously at each level from C3-4 through C6-7. There is reversal of the normal cervical lordosis. Mild osteoarthritic facet changes are noted. Vascular calcification is seen in the distribution of the carotid arteries. There is diffuse disc bulging, posterior osteophytic ridging and uncovertebral spurring at C 5 6 producing some central canal stenosis. IMPRESSION: Degenerative spondylosis changes. Stable findings from June 24, 2019. No acute abnormality. Central canal stenosis due to posterior osteophytic ridging and diffuse disc bulging at C5-6.. <Electronically signed by Keith Santoyo > 02/11/21 0914
[2021-02-11 09:37] LABS: ALBUMIN 3.4 GM/DL (3.2-5.2); ALT/SGPT 27 U/L (12-78); BILIRUBIN,DIRECT 0.2 MG/DL (0.0-0.2); BILIRUBIN,TOTAL 0.6 MG/DL (0.2-1.0); CK-MB VALUE MASS < 1.0 NG/ML (<3.6); CPK CREATINE PHOSPHOKINASE 43 U/L (39-308); LIPASE 51 U/L (73-393); MB/CK RELATIVE INDEX 2.33 (< OR =4); TOTAL PROTEIN 6.8 GM/DL (6.4-8.2); TROPONIN I < 0.02 NG/ML (< 0.10)
[2021-02-11] MEDS ORDERED: ISOVUE-370 76% 100ML VIAL As Ordered ONE (10:50)
--- NOTE | 2021-02-11 11:36 | REP ---
INDICATION: CP/SOB. COMPARISON: Chest CT dated 09/06/2018. TECHNIQUE: Chest CT with IV contrast, CT pulmonary angiography protocol. FINDINGS: There are no emboli in the pulmonary trunk or central pulmonary arteries. There are no emboli in the pulmonary artery lobe or segment branches on the right or left. There are no infiltrates or pleural effusions. There is a subtle linear density anteriorly in the right upper lobe on page 58, decreased in size, compatible with parenchymal scarring. There is a pleural based nodular density measuring 12 mm in the anterior inferior right middle lobe on image 69, not present previously. There is no mediastinal, hilar or axillary lymphadenopathy. The thoracic aorta is unremarkable except for occasional calcified atheroma. Cardiac size is normal. There are sternotomy wires. The visualized upper abdominal contents are unremarkable. IMPRESSION: There are no pulmonary emboli. There is a new pleural based 12 mm lung nodule at the anterior inferior right middle lobe on image 69 of series 402. There is a chronic parenchymal scar anteromedially in the right upper lobe image 58 of series 402, decreased in size from the prior study. There are no infiltrates or pleural effusions. There is no adenopathy. <Electronically signed by Evaristo Lim > 02/11/21 [id number]
--- NOTE | 2021-02-11 11:57 | REP ---
INDICATION: upper abd pain. COMPARISON: Abdomen/pelvis CT dated 11/09/2018. TECHNIQUE: Abdomen/pelvis CT with IV contrast, without bowel contrast. FINDINGS: The subcutaneous emphysema noted previously and has resolved. There are 2 gallbladder calculi, actually seen to better advantage on the chest CT this same date, but not significantly changed from 11/09/2018. The gallbladder is otherwise unremarkable. The hepatic parenchyma is hypodense compatible with steatosis. There are no hepatic masses or cysts. There are small hypodense zones in the pancreas, similar to the comparison study, nonspecific, fatty atrophy versus stable pancreatic cysts. There is no evidence of pancreatic duct dilatation. There is no peripancreatic inflammation. The spleen is normal size and unremarkable. There is a small 1 cm right hypodense adrenal adenoma, unchanged. The left adrenal is unremarkable. There are bilateral exophytic Bosniak type 1 renal cysts, unchanged. The kidneys are otherwise unremarkable. There is no hydronephrosis. There is a small midline ventral Fam hernia containing 1 wall of a small bowel loop. The this is slightly above the umbilicus. The peritoneal defect measures 2.2 cm. There is no evidence of bowel obstruction or strangulation. The abdominal aorta is unremarkable except for occasional calcified atheroma. The mesentery is unremarkable. Pelvis: The appendix is not identified, however, there is no pericecal inflammation or abscess. The terminal ileum is unremarkable. There is no ascites or adenopathy. The patient reportedly has had a prostatectomy. The bladder is unremarkable. There are occasional sigmoid colon diverticula. There is no CT evidence of diverticulitis. There are no lytic, blastic or destructive skeletal changes. IMPRESSION: Cholelithiasis without CT evidence of acute cholecystitis. Hypodensities within the pancreas, unchanged from the prior study, pancreatic fatty atrophy versus stable pancreatic cysts. There is no evidence of solid pancreatic mass or peripancreatic inflammation. No ascites. No retroperitoneal or mesenteric adenopathy. Stable small right adrenal adenoma. Bilateral renal stable Bosniak type 1 cysts. History of prostatectomy. No evidence of recurrent mass in the prostate bed. Midline ventral Fam hernia containing 1 wall of a small bowel loop, slightly above the umbilicus. No evidence of bowel obstruction or strangulation. Small hiatal hernia. The subcutaneous emphysema identified on the comparison study has resolved. <Electronically signed by Evaristo Lim > 02/11/21 1873
[2021-02-11 13:33] VITALS: BP 135/63
--- NOTE | 2021-02-11 20:54 | ECGEPIP ---
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
--- NOTE | 2021-02-12 12:42 | ED PDOC ---
Post-Departure Follow-Up radiology report faxed to Elise Cardoza MD Feb 12, 2021 12:42
== END 2021-02-11 13:39 | disposition home or self-care (01) ==
LOC: M ED 07:59
DX: R42 Dizziness and giddiness (principal); R11.2 Nausea with vomiting, unspecified; R19.7 Diarrhea, unspecified; R91.1 Solitary pulmonary nodule; R91.8 Other nonspecific abnormal finding of lung field; R94.31 Abnormal electrocardiogram [ECG] [EKG]; K80.20 Calculus of gallbladder without cholecystitis without obstruction; N28.1 Cyst of kidney, acquired; E27.9 Disorder of adrenal gland, unspecified; R93.3 Abnormal findings on diagnostic imaging of other parts of digestive tract; K43.9 Ventral hernia without obstruction or gangrene; K44.9 Diaphragmatic hernia without obstruction or gangrene; M50.222 Other cervical disc displacement at C5-C6 level; I25.10 Atherosclerotic heart disease of native coronary artery without angina pectoris; E11.40 Type 2 diabetes mellitus with diabetic neuropathy, unspecified; E78.5 Hyperlipidemia, unspecified; E66.9 Obesity, unspecified; G47.33 Obstructive sleep apnea (adult) (pediatric); F33.9 Major depressive disorder, recurrent, unspecified; F43.10 Post-traumatic stress disorder, unspecified; Z79.84 Long term (current) use of oral hypoglycemic drugs; Z79.899 Other long term (current) drug therapy; Z85.46 Personal history of malignant neoplasm of prostate; Z87.891 Personal history of nicotine dependence; Z95.1 Presence of aortocoronary bypass graft; Z90.79 Acquired absence of other genital organ(s); Z98.890 Other specified postprocedural states; Z82.49 Family history of ischemic heart disease and other diseases of the circulatory system
CPT/HCPCS: 70450; 71275; 72125; 74177; 80047; 80076; 82550; 82553; 83690; 84484; 85025; 93005; 93041; 96374; 99285; J2405; Q9967

== ENCOUNTER → 2021-04-09 | Outpatient (CLI) | payer MEDICARE, OTHER ==
[~2021-04-09] MED LIST changes: +ASPI81TA26 PO; +FURO20TA2; +GABA-1171; +PLAV1TAB2 PO
== END ==
LOC: M LABSMTC 10:30
PROVIDERS: ATTEND Anesthesiology
DX: Z01.812 Encounter for preprocedural laboratory examination (principal); Z20.822 Contact with and (suspected) exposure to COVID-19

== ENCOUNTER 2021-04-14 06:58 | Day surgery (SDC) | payer MEDICARE, OTHER ==
[~2021-04-14] VITALS: Ht 177.8 cm; Wt 89.4 kg
[~2021-04-14 06:58] MED LIST changes: +NS 1,000 ML IV ONE
[2021-04-14] MEDS ORDERED: LIDOCAINE 2% 100MG/5ML SDV (FOR ANES.) As Ordered ONE (07:34)
[2021-04-14] MEDS ORDERED: propofoL 200 MG/20 ML VIAL As Ordered ONE (07:34)
--- NOTE | 2021-04-14 08:17 | ROOR ---
Patient Name: Paul Montemayor Procedure Date: 04/14/2021 7:30 AM Date of : 1945 Age: 76 Room: [facility] Gender: Male Note Status: Finalized Procedure: Upper GI endoscopy Indications: Persistent vomiting Providers: Evaristo Chavez DO Referring MD: Roxana Colin MD Requesting Provider: Medicines: Propofol per Anesthesia Complications: No immediate complications. Procedure: Pre-Anesthesia Assessment: - Prior to the procedure, a History and Physical was performed, and patient medications and allergies were reviewed. The patient is competent. The risks and benefits of the procedure and the sedation options and risks were discussed with the patient. All questions were answered and informed consent was obtained. Patient identification and proposed procedure were verified by the physician, the nurse, the offshore wind operations manager and the endoscopy specialty technician in the endoscopy suite. Mental Status Examination: alert and oriented. Airway Examination: normal oropharyngeal airway and neck mobility. Respiratory Examination: clear to auscultation. CV Examination: normal. Prophylactic Antibiotics: The patient does not require prophylactic antibiotics. Prior Anticoagulants: The patient has taken no previous anticoagulant or antiplatelet agents. ASA Grade Assessment: III - A patient with severe systemic disease. After reviewing the risks and benefits, the patient was deemed in satisfactory condition to undergo the procedure. The anesthesia plan was to use monitored anesthesia care (MAC). Immediately prior to administration of medications, the patient was re-assessed for adequacy to receive sedatives. The heart rate, respiratory rate, oxygen saturations, blood pressure, adequacy of pulmonary ventilation, and response to care were monitored throughout the procedure. The physical status of the patient was re-assessed after the procedure. The Endoscope was introduced through the mouth, and advanced to the third part of duodenum. The upper GI endoscopy was accomplished without difficulty. The patient tolerated the procedure well. Findings: Diffuse minimal inflammation characterized by erythema and friability was found in the entire examined stomach. Biopsies were taken with a cold forceps for histology. Biopsies were taken with a cold forceps for Helicobacter pylori testing. Estimated blood loss was minimal. Impression: - Gastritis. Biopsied. Recommendation: - Patient has a contact number available for emergencies. The signs and symptoms of potential delayed complications were discussed with the patient. Return to normal activities tomorrow. Written discharge instructions were provided to the patient. - Do a gastric emptying study at appointment to be scheduled. - Await pathology results. - Return to my office at appointment to be scheduled. Procedure Code(s): --- Professional --- 49976, Esophagogastroduodenoscopy, flexible, transoral; with biopsy, single or multiple Diagnosis Code(s): --- Professional --- K29.70, Gastritis, unspecified, without bleeding R11.15, Cyclical vomiting syndrome unrelated to migraine CPT copyright 2019 [employer]. All rights reserved. The codes documented in this report are preliminary and upon trimmer hand review may be revised to meet current compliance requirements. Evaristo Chavez DO 04/14/2021 8:17:31 AM Electronically signed by Evaristo Chavez DO Number of Addenda: 0 Note Initiated On: 04/14/2021 7:30 AM Estimated Blood Loss: Estimated blood loss was minimal.
--- NOTE | 2021-04-14 08:23 | ROOR ---
Patient Name: Paul Montemayor Procedure Date: 04/14/2021 7:31 AM Date of : 1945 Age: 76 Room: [facility] Gender: Male Note Status: Finalized Procedure: Colonoscopy Indications: High risk colon cancer surveillance: Personal history of colonic polyps Providers: DO Malick Handy MD: Roxana Colin MD Requesting Provider: Medicines: Propofol per Anesthesia Complications: No immediate complications. Procedure: Pre-Anesthesia Assessment: - Prior to the procedure, a History and Physical was performed, and patient medications and allergies were reviewed. The patient is competent. The risks and benefits of the procedure and the sedation options and risks were discussed with the patient. All questions were answered and informed consent was obtained. Patient identification and proposed procedure were verified by the physician, the nurse, the trauma counsellor and the transport technician in the endoscopy suite. Mental Status Examination: alert and oriented. Airway Examination: normal oropharyngeal airway and neck mobility. Respiratory Examination: clear to auscultation. CV Examination: normal. Prophylactic Antibiotics: The patient does not require prophylactic antibiotics. Prior Anticoagulants: The patient has taken no previous anticoagulant or antiplatelet agents. ASA Grade Assessment: III - A patient with severe systemic disease. After reviewing the risks and benefits, the patient was deemed in satisfactory condition to undergo the procedure. The anesthesia plan was to use monitored anesthesia care (MAC). Immediately prior to administration of medications, the patient was re-assessed for adequacy to receive sedatives. The heart rate, respiratory rate, oxygen saturations, blood pressure, adequacy of pulmonary ventilation, and response to care were monitored throughout the procedure. The physical status of the patient was re-assessed after the procedure. The Colonoscope was introduced through the anus and advanced to the cecum, identified by appendiceal orifice and ileocecal valve. The colonoscopy was performed without difficulty. The patient tolerated the procedure well. Findings: Non-bleeding internal hemorrhoids were found during retroflexion. The hemorrhoids were mild and Grade II (internal hemorrhoids that prolapse but reduce spontaneously). Multiple small and large-mouthed diverticula were found in the sigmoid colon and descending colon. Two multi-lobulated polyps were found in the transverse colon. The polyps were 4 to 8 mm in size. These polyps were removed with a hot snare. Resection and retrieval were complete. Estimated blood loss was minimal. Impression: - Non-bleeding internal hemorrhoids. - Diverticulosis in the sigmoid colon and in the descending colon. - Two 4 to 8 mm polyps in the transverse colon, removed with a hot snare. Resected and retrieved. Recommendation: - Patient has a contact number available for emergencies. The signs and symptoms of potential delayed complications were discussed with the patient. Return to normal activities tomorrow. Written discharge instructions were provided to the patient. - Await pathology results. - Repeat colonoscopy in 5-10 years for surveillance based on pathology results. - Return to my office at appointment to be scheduled. Procedure Code(s): --- Professional --- 86487, Colonoscopy, flexible; with removal of tumor(s), polyp(s), or other lesion(s) by snare technique Diagnosis Code(s): --- Professional --- Z86.010, Personal history of colonic polyps K64.1, Second degree hemorrhoids K63.5, Polyp of colon K57.30, Diverticulosis of large intestine without perforation or abscess without bleeding CPT copyright 2019 [employer]. All rights reserved. The codes documented in this report are preliminary and upon alcohol law enforcement agent review may be revised to meet current compliance requirements. Evaristo Chavez DO 04/14/2021 8:23:21 AM Electronically signed by Evaristo Chavez DO Number of Addenda: 0 Note Initiated On: 04/14/2021 7:31 AM Estimated Blood Loss: Estimated blood loss was minimal.
[2021-04-14 08:40] VITALS: BP 131/60
== END 2021-04-14 08:43 | disposition home or self-care (01) ==
LOC: M OPP 06:58
PROVIDERS: ATTEND Surgery
DX: Z12.11 Encounter for screening for malignant neoplasm of colon (principal); Z86.010 Personal history of colon polyps; K63.5 Polyp of colon; K57.30 Diverticulosis of large intestine without perforation or abscess without bleeding; K64.1 Second degree hemorrhoids; K29.70 Gastritis, unspecified, without bleeding; R11.15 Cyclical vomiting syndrome unrelated to migraine; Z79.4 Long term (current) use of insulin; Z79.82 Long term (current) use of aspirin; Z79.899 Other long term (current) drug therapy; E11.9 Type 2 diabetes mellitus without complications; G47.30 Sleep apnea, unspecified; Z87.891 Personal history of nicotine dependence

== ENCOUNTER → 2021-04-28 | Outpatient (CLI) | payer MEDICARE, OTHER ==
[~2021-04-28] MED LIST changes: -NS 1,000 ML IV ONE
== END ==
LOC: M LAB 12:01
PROVIDERS: ATTEND Urology
DX: C61 Malignant neoplasm of prostate (principal)

== ENCOUNTER → 2021-06-02 | Outpatient (CLI) | payer MEDICARE, OTHER ==
[~2021-06-02] MED LIST changes: +ACET650T15 PO; +BICA50TA9 PO; +D31000TA2 PO; +DEXA4TA PO; +DITR1TAB PO; +DONE10TA90 PO; +GABA-282 PO; -LISI-898 PO; +LISI5TAB11 PO; +LUPR45IN IM; +NAPR-849 PO; +ONDA-83 PO; +ONDA4TAB6 PO; +TRAM50TA2 PO; +TRAZ-257 PO
== END ==
LOC: M ONCR 11:11
PROVIDERS: ATTEND General Practice
DX: C61 Malignant neoplasm of prostate (principal); Z79.899 Other long term (current) drug therapy

== ENCOUNTER 2021-06-15 10:07 | Outpatient (RCR) | payer MEDICARE, OTHER ==
[~2021-06-15 10:07] MED LIST changes: -ACET650T15 PO; -D31000TA2 PO; -DEXA4TA PO; -DITR1TAB PO; -GABA-282 PO; -LEUPROLIDE 45MG SYRINGE KIT (LUPRON DEPOT) (FOR ONCOLOGY) IM ONE; +LISI-898 PO; -LISI5TAB11 PO; -LUPR45IN IM; -NAPR-849 PO; -ONDA-83 PO; -ONDA4TAB6 PO; -TRAZ-257 PO
[2021-06-22] MEDS ORDERED: DEXA4TA PO (16:28)
[2021-06-30] MEDS ORDERED: LUPR45IN IM (06:30)
[2021-06-30] MEDS ORDERED: GABA-282 PO (06:30)
[2021-06-30] MEDS ORDERED: D31000TA2 PO (06:30)
[2021-06-30] MEDS ORDERED: BICA50TA9 PO (06:30)
[2021-06-30] MEDS ORDERED: NAPR-849 PO ×2 (11:58→12:13)
[2021-06-30] MEDS ORDERED: ACET650T15 PO (12:03)
== END 2021-07-02 ==
LOC: M ONCR 10:07
PROVIDERS: ATTEND General Practice
DX: C61 Malignant neoplasm of prostate (principal)

== ENCOUNTER → 2021-06-15 | Outpatient (CLI) | payer MEDICARE, OTHER ==
[~2021-06-15] VITALS: Ht 177.8 cm; Wt 51.8 kg
[~2021-06-15] MED LIST changes: +LEUPROLIDE 45MG SYRINGE KIT (LUPRON DEPOT) (FOR ONCOLOGY) IM ONE
== END ==
LOC: M ONCR 10:12
PROVIDERS: ATTEND General Practice
DX: C61 Malignant neoplasm of prostate (principal)
CPT/HCPCS: 96372; J9217

== ENCOUNTER → 2021-06-22 | Outpatient (CLI) | payer MEDICARE, OTHER ==
[~2021-06-22] MED LIST changes: +DEXA4TA PO
--- NOTE | 2021-06-22 12:06 | REP ---
INDICATION: MALIGNANT NEOPLASM OF PROSTATE. COMPARISON: None. TECHNIQUE: Single AP view of the pelvis FINDINGS: Generalized age-related degenerative changes. No sclerotic, lytic or blastic lesions are identified. Osseous structures are intact and without evidence for acute fracture or dislocation. IMPRESSION: Degenerative changes. No aggressive osseous lesions noted. <Electronically signed by Cristi Liu > 06/22/21 [id number]
--- NOTE | 2021-06-22 12:07 | REP ---
INDICATION: MALIGNANT NEOPLASM OF PROSTATE COMPARISON: None. TECHNIQUE: Supine view of the abdomen and pelvis. FINDINGS: Skeletal structures demonstrate degenerative changes and mild chronic levoconvex scoliosis. No obvious aggressive osseous lesions are identified. No evidence for acute injury. Bowel gas pattern is nonspecific. IMPRESSION: Degenerative changes. No obvious aggressive osseous lesions identified. <Electronically signed by Cristi Liu > 06/22/21 [id number]
== END ==
LOC: M RAD 11:49
PROVIDERS: ATTEND General Practice
DX: C61 Malignant neoplasm of prostate (principal); M89.8X8 Other specified disorders of bone, other site; M25.551 Pain in right hip; M25.552 Pain in left hip
CPT/HCPCS: 36415; 72190; 74018; 80053; 81001; 85025; 87086; G0463

== ENCOUNTER → 2021-06-22 | Outpatient (CLI) | payer MEDICARE, OTHER ==
[~2021-06-22] MED LIST changes: +ACET650T15 PO; +D31000TA2 PO; +GABA-282 PO; +LUPR45IN IM; +NAPR-849 PO
[2021-06-22 11:48] LABS: BASO % 0.3 % (0.0-1.0); EOS % 0.4 % (0.0-3.0); HEMATOCRIT 42.6 % (42.0-52.0); HEMOGLOBIN 13.9 g/dl (13.5-17.5); LYMPH # 1.2 10^3/uL (1.5-5.0); LYMPH % 12.5 % (24.0-44.0); MEAN CORPUSCULAR HEMOGLOBIN 28.5 pg (27.0-33.0); MEAN CORPUSCULAR HGB CONC 32.6 g/dl (32.0-36.5); MEAN CORPUSCULAR VOLUME 87.5 fl (80.0-96.0); MONO # 0.9 10^3/uL (0.0-0.8); MONO % 9.7 % (2.0-8.0); NEUTROPHILS # 7.3 10^3/uL (1.5-8.5); NEUTROPHILS % 76.6 % (36.0-66.0); PLATELET COUNT, AUTOMATED 243 10^3/uL (150-450); RED BLOOD COUNT 4.87 10^6/uL (4.30-6.10); WHITE BLOOD COUNT 9.5 10^3/uL (4.0-10.0)
[2021-06-22 11:50] LABS: APPEARANCE, URINE CLEAR (CLEAR); BACTERIA, URINE AUTO NEGATIVE (NEGATIVE); BILIRUBIN, URINE AUTO NEGATIVE (NEGATIVE); BLOOD, URINE BLOOD NEGATIVE (NEGATIVE); COLOR, URINE YELLOW (YELLOW); GLUCOSE, URINE (UA) AUTO NEGATIVE (NEGATIVE); KETONE, URINE AUTO NEGATIVE (NEGATIVE); LEUKOCYTE ESTERASE, URINE AUTO NEGATIVE (NEGATIVE); MUCUS, URINE SMALL (NEGATIVE); NITRITE, URINE AUTO NEGATIVE (NEGATIVE); PROTEIN, URINE AUTO 1+ mg/dL (NEGATIVE); RBC, URINE AUTO 0 /HPF (0-3); SPECIFIC GRAVITY URINE AUTO 1.015 (1.002-1.035); SQUAMOUS EPITHELIAL CELL UR AU 0 /HPF (0-6); WBC, URINE AUTO 0 /HPF (0-3)
[2021-06-22 12:21] LABS: ALBUMIN 3.3 GM/DL (3.2-5.2); ALT/SGPT 22 U/L (12-78); BILIRUBIN,TOTAL 0.5 MG/DL (0.2-1.0); BLOOD UREA NITROGEN 17 MG/DL (7-18); CALCIUM LEVEL 9.3 MG/DL (8.8-10.2); CARBON DIOXIDE LEVEL 26 MEQ/L (21-32); CHLORIDE LEVEL 105 MEQ/L (98-107); GLOMERULAR FILTRATION RATE > 60.0 (>42); GLUCOSE, FASTING 145 MG/DL (70-100); POTASSIUM SERUM 4.4 MEQ/L (3.5-5.1); SODIUM LEVEL 138 MEQ/L (136-145); TOTAL PROTEIN 6.8 GM/DL (6.4-8.2)
== END ==
LOC: M ONCR 10:14
PROVIDERS: ATTEND General Practice
DX: C61 Malignant neoplasm of prostate (principal); M25.551 Pain in right hip; M25.552 Pain in left hip; M54.6 Pain in thoracic spine; R10.9 Unspecified abdominal pain; R53.83 Other fatigue

== ENCOUNTER 2021-06-29 23:50 | Observation (INO) | payer MEDICARE, OTHER ==
[~2021-06-29] VITALS: Ht 177.8 cm; Wt 91.4 kg
[~2021-06-29 23:50] MED LIST changes: -ACET650T15 PO; -D31000TA2 PO; -GABA-282 PO; -LISI-898 PO; +LISI5TAB11 PO; -LUPR45IN IM; -NAPR-849 PO
[2021-06-30 00:30] LABS: BASO % 0.2 % (0.0-1.0); EOS # 0.1 10^3/uL (0.0-0.5); EOS % 0.8 % (0.0-3.0); HEMATOCRIT 37.9 % (42.0-52.0); HEMOGLOBIN 12.8 g/dl (13.5-17.5); LYMPH # 1.1 10^3/uL (1.5-5.0); LYMPH % 10.5 % (24.0-44.0); MEAN CORPUSCULAR HEMOGLOBIN 28.4 pg (27.0-33.0); MEAN CORPUSCULAR HGB CONC 33.8 g/dl (32.0-36.5); MEAN CORPUSCULAR VOLUME 84.2 fl (80.0-96.0); MONO % 9.2 % (2.0-8.0); NEUTROPHILS # 8.3 10^3/uL (1.5-8.5); NEUTROPHILS % 78.1 % (36.0-66.0); PLATELET COUNT, AUTOMATED 237 10^3/uL (150-450); WHITE BLOOD COUNT 10.6 10^3/uL (4.0-10.0)
[2021-06-30 00:42] LABS: INR 1.08; PROTHROMBIN TIME 14.4 SECONDS (12.7-14.5)
[2021-06-30 00:43] LABS: PARTIAL THROMBOPLASTIN TIME 44.2 SECONDS (25.9-37.0)
[2021-06-30 00:59] LABS: CK-MB VALUE MASS < 1.0 NG/ML (<3.6); CPK CREATINE PHOSPHOKINASE 17 U/L (39-308); MB/CK RELATIVE INDEX 5.88 (< OR =4)
[2021-06-30 01:10] LABS: BLOOD UREA NITROGEN 17 MG/DL (7-18); CALCIUM LEVEL 8.6 MG/DL (8.8-10.2); CARBON DIOXIDE LEVEL 29 MEQ/L (21-32); CHLORIDE LEVEL 104 MEQ/L (98-107); CREATININE FOR GFR 0.86 MG/DL (0.70-1.30); GLOMERULAR FILTRATION RATE > 60.0 (>42); GLUCOSE, FASTING 86 MG/DL (70-100); NT-PRO BNP 117 PG/ML (<450); POTASSIUM SERUM 3.6 MEQ/L (3.5-5.1); SODIUM LEVEL 141 MEQ/L (136-145)
[2021-06-30 02:04] LABS: CK-MB VALUE MASS < 1.0 NG/ML (<3.6); CPK CREATINE PHOSPHOKINASE 19 U/L (39-308); MB/CK RELATIVE INDEX 5.26 (< OR =4)
[2021-06-30] MEDS ORDERED: ISOVUE-370 76% 100ML VIAL As Ordered ONE (02:40)
[2021-06-30 03:41] LABS: RSV AMPLIFICATION NEGATIVE (NEGATIVE)
[2021-06-30 03:58] LABS: CK-MB VALUE MASS < 1.0 NG/ML (<3.6); CPK CREATINE PHOSPHOKINASE 21 U/L (39-308); MB/CK RELATIVE INDEX 4.76 (< OR =4)
[2021-06-30] MEDS ORDERED: BICA50TA9 PO (06:30)
[2021-06-30] MEDS ORDERED: LUPR45IN IM (06:30)
[2021-06-30] MEDS ORDERED: D31000TA2 PO (06:30)
[2021-06-30] MEDS ORDERED: GABA-282 PO (06:30)
[2021-06-30] MEDS ORDERED: HOME MED LIST COMPLETE! XX SCH (06:35)
[2021-06-30] MEDS ORDERED: ACETAMINOPHEN 500 MG TAB PO PRN (06:40)
[2021-06-30] MEDS ORDERED: DEXTROSE 50% 50 ML SYRINGE IV STA (06:42)
[2021-06-30] MEDS ORDERED: GLUCAGON INJ 1MG VIAL SC PRN (06:45)
[2021-06-30] MEDS ORDERED: DEXTROSE 50% 50 ML SYRINGE IV PRN (06:45)
[2021-06-30] MEDS ORDERED: GLUCOSE 4GM CHEW TABLET PO PRN (06:45)
[2021-06-30] MEDS ORDERED: HumaLOG INSULIN (NovoLOG) PER UNIT SC SCH (07:30)
[2021-06-30] MEDS: HumaLOG INSULIN (NovoLOG) PER UNIT SC SCH ×2 (07:30→12:53)
[2021-06-30 08:00] VITALS: BP 131/95
[2021-06-30] MEDS ORDERED: EZETIMIBE 10MG TABLET (ZETIA) PO SCH (09:00)
[2021-06-30] MEDS ORDERED: BICALUTAMIDE 50 MG TAB PO SCH (09:00)
[2021-06-30] MEDS ORDERED: NAPROXEN 250 MG TAB PO SCH (09:00)
[2021-06-30] MEDS ORDERED: HEPARIN SOD (PORCINE) 5000UNITS/ML 1ML VIAL/SYRINGE SC SCH (09:00)
[2021-06-30] MEDS ORDERED: amLODIPine 5 MG TAB PO SCH (09:00)
[2021-06-30] MEDS ORDERED: PANTOPRAZOLE 40MG TAB (PROTONIX) PO SCH (09:00)
[2021-06-30] MEDS ORDERED: GABAPENTIN 300 MG CAP PO SCH (09:00)
[2021-06-30] MEDS ORDERED: CLOPIDOGREL 75 MG TAB PO SCH (09:00)
[2021-06-30] MEDS ORDERED: ROSUVASTATIN 10 MG TAB (CRESTOR) PO SCH (09:00)
[2021-06-30] MEDS ORDERED: NAPR-849 PO ×2 (11:58→12:13)
[2021-06-30] MEDS ORDERED: ACET650T15 PO (12:03)
[2021-06-30] MEDS ORDERED: traMADol 50 MG TAB PO PRN (12:05)
[2021-06-30 14:25] VITALS: BP 126/57
[2021-06-30 14:51] VITALS: BP 126/57
[2021-06-30] MEDS ORDERED: SERTRALINE HCL 50 MG TAB PO SCH (21:00)
[2021-06-30] MEDS ORDERED: lisinopriL 5 MG TAB PO SCH (21:00)
[2021-06-30] MEDS ORDERED: PRAZOSIN 1 MG CAP PO SCH (21:00)
[2021-06-30] MEDS ORDERED: VITAMIN D 1,000 INTERNATIONAL UNITS TABLET PO SCH (21:00)
[2021-06-30] MEDS ORDERED: ASPIRIN 81MG ENTERIC TABLET PO SCH (21:00)
[2021-07-01] MEDS ORDERED: LEVEMIR (INSULIN DETEMIR) 1 UNITS/0.01ML SC SCH (09:00)
[2021-07-21] MEDS ORDERED: ONDA-83 PO (08:39)
== END 2021-06-30 15:35 | disposition home or self-care (01) ==
LOC: M ED 23:50 → M ED INP 23:51 → UNDOADMOB 06-30 06:11 → M ED INP 06-30 06:11 → ENRESERV 06-30 07:01 → M ED INP 06-30 08:00 → M MS5PR 06-30 08:00 → UNDODISOB 06-30 15:35
PROVIDERS: ADMIT Internal Medicine; ATTEND Internal Medicine
DX: R53.83 Other fatigue (principal); R53.1 Weakness; M94.0 Chondrocostal junction syndrome [Tietze]; E11.649 Type 2 diabetes mellitus with hypoglycemia without coma; I25.10 Atherosclerotic heart disease of native coronary artery without angina pectoris; I10 Essential (primary) hypertension; K21.9 Gastro-esophageal reflux disease without esophagitis; F32.9 Major depressive disorder, single episode, unspecified; K80.20 Calculus of gallbladder without cholecystitis without obstruction; C61 Malignant neoplasm of prostate; Z79.82 Long term (current) use of aspirin; Z79.4 Long term (current) use of insulin; Z79.84 Long term (current) use of oral hypoglycemic drugs; Z88.5 Allergy status to narcotic agent; Z88.8 Allergy status to other drugs, medicaments and biological substances; Z79.899 Other long term (current) drug therapy
CPT/HCPCS: 36415; 71045; 71275; 80048; 82550; 82553; 83880; 84484; 85025; 85610; 85730; 87631; 93005; 93041; 94760; 96372; 96374; 97161; 97530; 99285; G0378; J1644; Q9967

== ENCOUNTER → 2021-07-09 | Outpatient (CLI) | payer MEDICARE, OTHER ==
[~2021-07-09] MED LIST changes: +ACET650T15 PO; +D31000TA2 PO; +GABA-282 PO; +LUPR45IN IM; +NAPR-849 PO
[2021-07-09 17:49] LABS: ALBUMIN 3.2 GM/DL (3.2-5.2); ALT/SGPT 30 U/L (12-78); BILIRUBIN,TOTAL 0.3 MG/DL (0.2-1.0); BLOOD UREA NITROGEN 18 MG/DL (7-18); CALCIUM LEVEL 8.9 MG/DL (8.8-10.2); CARBON DIOXIDE LEVEL 30 MEQ/L (21-32); CHLORIDE LEVEL 105 MEQ/L (98-107); CREATININE FOR GFR 1.03 MG/DL (0.70-1.30); GLOMERULAR FILTRATION RATE > 60.0 (>42); GLUCOSE, FASTING 207 MG/DL (70-100); POTASSIUM SERUM 4.4 MEQ/L (3.5-5.1); SODIUM LEVEL 138 MEQ/L (136-145); TOTAL PROTEIN 6.3 GM/DL (6.4-8.2)
[2021-07-09 18:26] LABS: BASO % 0.3 % (0.0-1.0); EOS # 0.1 10^3/uL (0.0-0.5); EOS % 1.1 % (0.0-3.0); HEMATOCRIT 38.3 % (42.0-52.0); HEMOGLOBIN 12.6 g/dl (13.5-17.5); LYMPH # 1.1 10^3/uL (1.5-5.0); MEAN CORPUSCULAR HEMOGLOBIN 28.3 pg (27.0-33.0); MEAN CORPUSCULAR HGB CONC 32.9 g/dl (32.0-36.5); MEAN CORPUSCULAR VOLUME 85.9 fl (80.0-96.0); MONO # 0.5 10^3/uL (0.0-0.8); MONO % 7.2 % (2.0-8.0); NEUTROPHILS % 74.6 % (36.0-66.0); PLATELET COUNT, AUTOMATED 208 10^3/uL (150-450); RED BLOOD COUNT 4.46 10^6/uL (4.30-6.10); WHITE BLOOD COUNT 6.6 10^3/uL (4.0-10.0)
[2021-07-09 19:10] LABS: HEMOGLOBIN A1c 6.4 %
== END ==
LOC: M PLALAB 15:38
PROVIDERS: ATTEND Physician Assistant Medical
DX: E16.2 Hypoglycemia, unspecified (principal); D64.9 Anemia, unspecified

== ENCOUNTER → 2021-07-23 | Outpatient (CLI) | payer MEDICARE, OTHER ==
[~2021-07-23] MED LIST changes: +ONDA-83 PO
== END ==
LOC: M RAD 08:46
PROVIDERS: ATTEND Physician Assistant Medical
DX: D64.9 Anemia, unspecified (principal)

== ENCOUNTER 2021-07-31 07:39 | Emergency (ER) | payer MEDICARE, OTHER ==
[~2021-07-31] VITALS: Ht 177.8 cm; Wt 91.0 kg
[2021-07-31] MEDS ORDERED: NS 1,000 ML IV ONE (08:30)
[2021-07-31] MEDS ORDERED: ONDANSETRON 4MG/2ML VIAL IV ONE (08:30)
[2021-07-31 09:15] LABS: BASO % 0.2 % (0.0-1.0); EOS % 0.5 % (0.0-3.0); HEMATOCRIT 34.3 % (42.0-52.0); HEMOGLOBIN 11.8 g/dl (13.5-17.5); LYMPH # 0.4 10^3/uL (1.5-5.0); LYMPH % 8.7 % (24.0-44.0); MEAN CORPUSCULAR HEMOGLOBIN 28.7 pg (27.0-33.0); MEAN CORPUSCULAR HGB CONC 34.4 g/dl (32.0-36.5); MEAN CORPUSCULAR VOLUME 83.5 fl (80.0-96.0); MONO # 0.5 10^3/uL (0.0-0.8); MONO % 12.5 % (2.0-8.0); NEUTROPHILS # 3.2 10^3/uL (1.5-8.5); NEUTROPHILS % 77.6 % (36.0-66.0); PLATELET COUNT, AUTOMATED 144 10^3/uL (150-450); RED BLOOD COUNT 4.11 10^6/uL (4.30-6.10); WHITE BLOOD COUNT 4.2 10^3/uL (4.0-10.0)
[2021-07-31 09:35] LABS: ALT/SGPT 25 U/L (12-78); BILIRUBIN,DIRECT 0.2 MG/DL (0.0-0.2); BILIRUBIN,TOTAL 0.8 MG/DL (0.2-1.0); BLOOD UREA NITROGEN 6 MG/DL (7-18); CALCIUM LEVEL 8.8 MG/DL (8.8-10.2); CARBON DIOXIDE LEVEL 28 MEQ/L (21-32); CHLORIDE LEVEL 106 MEQ/L (98-107); CREATININE FOR GFR 0.72 MG/DL (0.70-1.30); GLOMERULAR FILTRATION RATE > 60.0 (>42); GLUCOSE, FASTING 81 MG/DL (70-100); LIPASE 25 U/L (73-393); SODIUM LEVEL 142 MEQ/L (136-145); TOTAL PROTEIN 6.2 GM/DL (6.4-8.2)
[2021-07-31 09:37] LABS: CK-MB VALUE MASS < 1.0 NG/ML (<3.6); CPK CREATINE PHOSPHOKINASE 55 U/L (39-308); MB/CK RELATIVE INDEX 1.82 (< OR =4)
[2021-07-31] MEDS ORDERED: ISOVUE-370 76% 100ML VIAL As Ordered ONE (09:44)
[2021-07-31 12:45] LABS: CK-MB VALUE MASS 1.1 NG/ML (<3.6); MB/CK RELATIVE INDEX 2.5 (< OR =4)
[2021-07-31 13:15] VITALS: BP 183/86
[2021-07-31] MEDS ORDERED: ONDA4TAB6 PO (13:20)
[2021-08-02] MEDS ORDERED: ONDA-83 PO (10:57)
[2021-08-02] MEDS ORDERED: TRAZ-257 PO (10:58)
== END 2021-07-31 13:43 | disposition home or self-care (01) ==
LOC: M ED 07:39
DX: I10 Essential (primary) hypertension (principal); R11.10 Vomiting, unspecified; K80.20 Calculus of gallbladder without cholecystitis without obstruction; E11.9 Type 2 diabetes mellitus without complications; I25.10 Atherosclerotic heart disease of native coronary artery without angina pectoris; K21.9 Gastro-esophageal reflux disease without esophagitis; Z85.46 Personal history of malignant neoplasm of prostate; Z90.79 Acquired absence of other genital organ(s); Z79.4 Long term (current) use of insulin; Z79.82 Long term (current) use of aspirin; Z79.899 Other long term (current) drug therapy
CPT/HCPCS: 36415; 71045; 74177; 76705; 80048; 80076; 81001; 82550; 82553; 83605; 83690; 84484; 85025; 87040; 87798; 93005; 93041; 96361; 96374; 99285; J2405; Q9967

== ENCOUNTER → 2021-08-02 | Outpatient (RCR) | payer MEDICARE, OTHER ==
[~2021-08-02] MED LIST changes: +ONDA4TAB6 PO; +TRAZ-257 PO
== END ==
LOC: M ONCR 07-05 13:07
PROVIDERS: ATTEND General Practice
DX: C61 Malignant neoplasm of prostate (principal)

== ENCOUNTER → 2021-08-19 | Outpatient (CLI) | payer MEDICARE, OTHER | LOC: M RAD 11:14 | PROVIDERS: ATTEND Internal Medicine Pulmonary Disease | DX: R91.1 Solitary pulmonary nodule (principal); E04.1 Nontoxic single thyroid nodule; I70.0 Atherosclerosis of aorta; I77.810 Thoracic aortic ectasia; I28.1 Aneurysm of pulmonary artery; K75.3 Granulomatous hepatitis, not elsewhere classified; K80.20 Calculus of gallbladder without cholecystitis without obstruction ==

== ENCOUNTER → 2021-08-30 | Outpatient (CLI) | payer MEDICARE, OTHER ==
[~2021-08-30] MED LIST changes: +DITR1TAB PO
== END ==
LOC: M RAD 11:21
PROVIDERS: ATTEND General Practice
DX: C61 Malignant neoplasm of prostate (principal); R22.2 Localized swelling, mass and lump, trunk

== ENCOUNTER → 2021-08-30 | Outpatient (RCR) | payer MEDICARE, OTHER ==
[2021-08-10 11:46] LABS: APPEARANCE, URINE CLEAR (CLEAR); BACTERIA, URINE AUTO NEGATIVE (NEGATIVE); BILIRUBIN, URINE AUTO NEGATIVE (NEGATIVE); BLOOD, URINE BLOOD NEGATIVE (NEGATIVE); COLOR, URINE STRAW (YELLOW); GLUCOSE, URINE (UA) AUTO NEGATIVE (NEGATIVE); KETONE, URINE AUTO NEGATIVE (NEGATIVE); LEUKOCYTE ESTERASE, URINE AUTO NEGATIVE (NEGATIVE); NITRITE, URINE AUTO NEGATIVE (NEGATIVE); PROTEIN, URINE AUTO NEGATIVE (NEGATIVE); RBC, URINE AUTO 0 /HPF (0-3); SPECIFIC GRAVITY URINE AUTO 1.001 (1.002-1.035); SQUAMOUS EPITHELIAL CELL UR AU 0 /HPF (0-6); UROBILINOGEN, URINE AUTO 0.2 mg/dL (0.0-2.0); WBC, URINE AUTO 0 /HPF (0-3)
[~2021-08-30] MED LIST changes: -D31000TA2 PO; +VITA100093 PO
== END ==
LOC: M ONCR 08-03 10:17
PROVIDERS: ATTEND General Practice
DX: C61 Malignant neoplasm of prostate (principal); R19.7 Diarrhea, unspecified; M79.606 Pain in leg, unspecified; Z79.899 Other long term (current) drug therapy

== ENCOUNTER → 2021-09-01 | Outpatient (CLI) | payer MEDICARE, OTHER | LOC: M LABSMTC 09:24 | PROVIDERS: ATTEND Anesthesiology | DX: Z01.812 Encounter for preprocedural laboratory examination (principal) ==

== ENCOUNTER 2021-09-02 09:59 | Outpatient (RCR) | payer MEDICARE, OTHER | END 2021-09-30 | LOC: M ONCR 09:59 | PROVIDERS: ATTEND General Practice | DX: C61 Malignant neoplasm of prostate (principal); R19.7 Diarrhea, unspecified ==

== ENCOUNTER 2021-09-06 06:13 | Day surgery (SDC) | payer MEDICARE, OTHER ==
[~2021-09-06] VITALS: Ht 177.8 cm; Wt 88.5 kg
[~2021-09-06 06:13] MED LIST changes: +LR 1,000 ML IV ONE
[2021-09-06] MEDS ORDERED: LIDOCAINE W/EPINEPHRINE 1% 20ML VIAL As Ordered ONE (07:07)
[2021-09-06] MEDS ORDERED: ONDANSETRON 4MG/2ML VIAL As Ordered ONE (07:13)
[2021-09-06] MEDS ORDERED: dexameTHASONE 4 MG/ML 1ML VIAL (J1100 PER 1MG) As Ordered ONE (07:13)
[2021-09-06] MEDS ORDERED: LIDOCAINE 2% 100MG/5ML SDV (FOR ANES.) As Ordered ONE (07:13)
[2021-09-06] MEDS ORDERED: ROCURONIUM BROMIDE 50 MG/5 ML VIAL As Ordered ONE (07:13)
[2021-09-06] MEDS ORDERED: propofoL 200 MG/20 ML VIAL As Ordered ONE (07:13)
[2021-09-06] MEDS ORDERED: METOCLOPRAMIDE INJ 10MG/2ML VIAL (J2765 PER 1) As Ordered ONE (07:13)
[2021-09-06] MEDS ORDERED: SUGAMMADEX SODIUM 500 MG/5 ML VIAL (BRIDION) As Ordered ONE (07:13)
[2021-09-06] MEDS ORDERED: fentaNYL 100 MCG/2 ML INJECTION As Ordered ONE ×2 (07:14→08:32)
[2021-09-06] MEDS ORDERED: ACETAMINOPHEN 1000MG 100ML IV BTL (OFIRMEV) (J0131 PER 10MG) As Ordered ONE (07:43)
[2021-09-06] MEDS: fentaNYL 100 MCG/2 ML INJECTION IV PRN ×4 (08:32→08:47)
[2021-09-06] MEDS ORDERED: LR 1,000 ML IV SCH (08:45)
[2021-09-06] MEDS ORDERED: oxyCODONE 5MG TAB PO PRN (08:45)
[2021-09-06] MEDS ORDERED: ONDANSETRON 4MG/2ML VIAL IV PRN (08:45)
[2021-09-06] MEDS ORDERED: NORCO, ANEXSIA 5/325MG TABLET (HYDROcodone/ACETAMINOPHEN) PO PRN (09:15)
[2021-09-06] MEDS ORDERED: LABETALOL 100MG/20ML VIAL IV PRN (09:20)
[2021-09-06] MEDS ORDERED: hydrALAZINE 20MG/ML 1ML VIAL (J0360 PER 20MG) IV PRN (09:20)
[2021-09-06 10:33] VITALS: BP 137/60
== END 2021-09-06 10:35 | disposition home or self-care (01) ==
LOC: M SDC 06:13
PROVIDERS: ATTEND Surgery
DX: K80.11 Calculus of gallbladder with chronic cholecystitis with obstruction (principal); I10 Essential (primary) hypertension; E11.40 Type 2 diabetes mellitus with diabetic neuropathy, unspecified; I25.10 Atherosclerotic heart disease of native coronary artery without angina pectoris; D50.9 Iron deficiency anemia, unspecified; E04.1 Nontoxic single thyroid nodule; E78.5 Hyperlipidemia, unspecified; F33.9 Major depressive disorder, recurrent, unspecified; F43.10 Post-traumatic stress disorder, unspecified; G47.30 Sleep apnea, unspecified; N40.0 Benign prostatic hyperplasia without lower urinary tract symptoms; E66.9 Obesity, unspecified; Z99.89 Dependence on other enabling machines and devices; Z95.1 Presence of aortocoronary bypass graft; Z95.5 Presence of coronary angioplasty implant and graft; Z85.46 Personal history of malignant neoplasm of prostate; Z86.73 Personal history of transient ischemic attack (TIA), and cerebral infarction without residual deficits; Z87.891 Personal history of nicotine dependence; Z79.899 Other long term (current) drug therapy; Z79.01 Long term (current) use of anticoagulants; Z79.82 Long term (current) use of aspirin; Z79.4 Long term (current) use of insulin; Z79.84 Long term (current) use of oral hypoglycemic drugs

== ENCOUNTER 2021-09-06 22:21 | Emergency (ER) | payer MEDICARE, OTHER ==
[~2021-09-06] VITALS: Ht 177.8 cm; Wt 90.9 kg
[~2021-09-06 22:21] MED LIST changes: -LR 1,000 ML IV ONE
[2021-09-07 02:33] LABS: BASO % 0.2 % (0.0-1.0); EOS % 0.2 % (0.0-3.0); HEMATOCRIT 28.7 % (42.0-52.0); HEMOGLOBIN 10.1 g/dl (13.5-17.5); LYMPH # 0.2 10^3/uL (1.5-5.0); MEAN CORPUSCULAR HEMOGLOBIN 31.2 pg (27.0-33.0); MEAN CORPUSCULAR HGB CONC 35.2 g/dl (32.0-36.5); MEAN CORPUSCULAR VOLUME 88.6 fl (80.0-96.0); MONO # 0.4 10^3/uL (0.0-0.8); MONO % 7.3 % (2.0-8.0); NEUTROPHILS # 5.3 10^3/uL (1.5-8.5); NEUTROPHILS % 87.8 % (36.0-66.0); PLATELET COUNT, AUTOMATED 168 10^3/uL (150-450); RED BLOOD COUNT 3.24 10^6/uL (4.30-6.10)
[2021-09-07 02:45] LABS: BLOOD UREA NITROGEN 13 MG/DL (7-18); CALCIUM LEVEL 8.7 MG/DL (8.8-10.2); CARBON DIOXIDE LEVEL 29 MEQ/L (21-32); CHLORIDE LEVEL 105 MEQ/L (98-107); CREATININE FOR GFR 0.81 MG/DL (0.70-1.30); GLOMERULAR FILTRATION RATE > 60.0 (>42); GLUCOSE, FASTING 176 MG/DL (70-100); MAGNESIUM LEVEL 1.6 MG/DL (1.8-2.4); POTASSIUM SERUM 3.8 MEQ/L (3.5-5.1); SODIUM LEVEL 140 MEQ/L (136-145)
[2021-09-07 02:51] LABS: CK-MB VALUE MASS 1.5 NG/ML (<3.6); MB/CK RELATIVE INDEX 1.69 (< OR =4)
[2021-09-07] MEDS ORDERED: MAG SULF 1GM/100ML (MAG RUN) 1 GM in IV 1 EA IV ONE (03:40)
[2021-09-07] MEDS ORDERED: MAGNESIUM OXIDE 400MG TAB (MAG-OX) PO ONE (03:45)
[2021-09-07 04:15] VITALS: BP 136/70
== END 2021-09-07 05:13 | disposition home or self-care (01) ==
LOC: M ED 22:21
DX: K80.11 Calculus of gallbladder with chronic cholecystitis with obstruction (principal); I10 Essential (primary) hypertension; E11.40 Type 2 diabetes mellitus with diabetic neuropathy, unspecified; N28.9 Disorder of kidney and ureter, unspecified; E04.1 Nontoxic single thyroid nodule; E78.5 Hyperlipidemia, unspecified; D50.9 Iron deficiency anemia, unspecified; F33.9 Major depressive disorder, recurrent, unspecified; F43.10 Post-traumatic stress disorder, unspecified; I25.10 Atherosclerotic heart disease of native coronary artery without angina pectoris; G47.30 Sleep apnea, unspecified; N40.0 Benign prostatic hyperplasia without lower urinary tract symptoms; E66.9 Obesity, unspecified; Z95.1 Presence of aortocoronary bypass graft; Z95.5 Presence of coronary angioplasty implant and graft; Z85.46 Personal history of malignant neoplasm of prostate; Z86.73 Personal history of transient ischemic attack (TIA), and cerebral infarction without residual deficits; Z79.899 Other long term (current) drug therapy; Z79.82 Long term (current) use of aspirin; Z79.84 Long term (current) use of oral hypoglycemic drugs; Z79.4 Long term (current) use of insulin; Z79.01 Long term (current) use of anticoagulants; Z87.891 Personal history of nicotine dependence
CPT/HCPCS: 36415; 47562; 71045; 80048; 82550; 82553; 83735; 84484; 85025; 88304; 93005; 99285; J0131; J1100; J2405; J2765; J3010; S2900

== ENCOUNTER 2021-09-21 16:49 | Emergency (ER) | payer MEDICARE, OTHER ==
[~2021-09-21] VITALS: Ht 177.8 cm; Wt 87.7 kg
[2021-09-21 20:44] LABS: HEMATOCRIT 32.5 % (42.0-52.0); HEMOGLOBIN 11.1 g/dl (13.5-17.5); MEAN CORPUSCULAR HEMOGLOBIN 29.7 pg (27.0-33.0); MEAN CORPUSCULAR HGB CONC 34.2 g/dl (32.0-36.5); MEAN CORPUSCULAR VOLUME 86.9 fl (80.0-96.0); PLATELET COUNT, AUTOMATED 185 10^3/uL (150-450); RED BLOOD COUNT 3.74 10^6/uL (4.30-6.10); WHITE BLOOD COUNT 4.1 10^3/uL (4.0-10.0)
[2021-09-21 21:03] LABS: AMPHETAMINES LEVEL URINE NEGATIVE (NEGATIVE); BARBITURATES URINE NEGATIVE (NEGATIVE); BENZODIAZEPINES URINE NEGATIVE (NEGATIVE); CANNABINOIDS URINE NEGATIVE (NEGATIVE); COCAINE METABOLITE URINE NEGATIVE (NEGATIVE); METHADONE URINE NEGATIVE (NEGATIVE); OPIATES URINE NEGATIVE (NEGATIVE); PHENCYCLIDINE URINE NEGATIVE (NEGATIVE)
[2021-09-21 21:30] LABS: BLOOD UREA NITROGEN 18 MG/DL (7-18); CALCIUM LEVEL 9.4 MG/DL (8.8-10.2); CARBON DIOXIDE LEVEL 30 MEQ/L (21-32); CHLORIDE LEVEL 110 MEQ/L (98-107); CREATININE FOR GFR 0.96 MG/DL (0.70-1.30); GLOMERULAR FILTRATION RATE > 60.0 (>42); GLUCOSE, FASTING 97 MG/DL (70-100); POTASSIUM SERUM 3.9 MEQ/L (3.5-5.1); SODIUM LEVEL 143 MEQ/L (136-145)
[2021-09-21 21:31] LABS: ACETAMINOPHEN LEVEL < 2.0 UG/ML (10.0-30.0); ALBUMIN 3.3 GM/DL (3.2-5.2); ALT/SGPT 76 U/L (12-78); BILIRUBIN,DIRECT 0.1 MG/DL (0.0-0.2); BILIRUBIN,TOTAL 0.4 MG/DL (0.2-1.0); ETHYL ALCOHOL (ETHANOL) < 0.003 % (0.000-0.010); SALICYLATE LEVEL < 1.7 MG/DL (5.0-30.0); TOTAL PROTEIN 6.4 GM/DL (6.4-8.2)
[2021-09-21] MEDS ORDERED: LORazepam 0.5 MG TAB PO ONE (21:40)
[2021-09-21 22:24] VITALS: BP 144/76
== END 2021-09-21 22:27 | disposition home or self-care (01) ==
LOC: M ED 16:49
DX: F43.10 Post-traumatic stress disorder, unspecified (principal); I25.10 Atherosclerotic heart disease of native coronary artery without angina pectoris; E11.9 Type 2 diabetes mellitus without complications; I10 Essential (primary) hypertension; K21.9 Gastro-esophageal reflux disease without esophagitis; Z77.098 Contact with and (suspected) exposure to other hazardous, chiefly nonmedicinal, chemicals; Z85.46 Personal history of malignant neoplasm of prostate; Z95.1 Presence of aortocoronary bypass graft; Z87.891 Personal history of nicotine dependence; Z79.02 Long term (current) use of antithrombotics/antiplatelets; Z79.4 Long term (current) use of insulin; Z79.82 Long term (current) use of aspirin; Z79.899 Other long term (current) drug therapy

== ENCOUNTER → 2021-10-18 | Outpatient (CLI) | payer MEDICARE, OTHER ==
[~2021-10-18] MED LIST changes: +LIDOCAINE 1% MDV 20ML VIAL As Ordered ONE
[2021-10-18 14:37] VITALS: BP 161/77
== END ==
LOC: M IRPRO 13:44 → M 4MAIN 13:49
PROVIDERS: ATTEND Family Medicine
DX: E04.1 Nontoxic single thyroid nodule (principal)

== ENCOUNTER → 2021-10-21 | Outpatient (CLI) | payer MEDICARE, OTHER ==
[~2021-10-21] MED LIST changes: -LIDOCAINE 1% MDV 20ML VIAL As Ordered ONE
[2021-10-21 13:56] LABS: HEMATOCRIT 35.8 % (42.0-52.0); HEMOGLOBIN 11.7 g/dl (13.5-17.5); MEAN CORPUSCULAR HEMOGLOBIN 28.8 pg (27.0-33.0); MEAN CORPUSCULAR HGB CONC 32.7 g/dl (32.0-36.5); MEAN CORPUSCULAR VOLUME 88.2 fl (80.0-96.0); PLATELET COUNT, AUTOMATED 175 10^3/uL (150-450); RED BLOOD COUNT 4.06 10^6/uL (4.30-6.10); WHITE BLOOD COUNT 3.6 10^3/uL (4.0-10.0)
[2021-10-21 14:06] LABS: HEMOGLOBIN A1c 5.2 %
[2021-10-21 14:18] LABS: CREATININE, URINE 56.3 MG/DL; MAU/CREAT RATIO 245.1 MCG/MG (0.0-30.0)
[2021-10-21 14:34] LABS: ALBUMIN 3.2 GM/DL (3.2-5.2); ALT/SGPT 45 U/L (12-78); BILIRUBIN,TOTAL 0.5 MG/DL (0.2-1.0); BLOOD UREA NITROGEN 10 MG/DL (7-18); CALCIUM LEVEL 9.2 MG/DL (8.8-10.2); CARBON DIOXIDE LEVEL 32 MEQ/L (21-32); CHLORIDE LEVEL 107 MEQ/L (98-107); CREATININE FOR GFR 0.83 MG/DL (0.70-1.30); FERRITIN 80 NG/ML (26-388); FREE T4 0.96 NG/DL (0.76-1.46); GLOMERULAR FILTRATION RATE > 60.0 (>42); GLUCOSE, FASTING 80 MG/DL (70-100); IRON (FE) 56 UG/DL (65-175); POTASSIUM SERUM 5.1 MEQ/L (3.5-5.1); SODIUM LEVEL 141 MEQ/L (136-145); TOTAL 25(OH) VITAMIN D 30.2 NG/ML (30.0-100.0); TOTAL IRON BINDING CAPACITY 267 UG/DL (250-450); TOTAL PROTEIN 6.1 GM/DL (6.4-8.2)
[2021-10-22 13:12] LABS: CREATININE, URINE 59.2 mg/dL (20.0-300.0)
[2021-10-26 17:14] LABS: VITAMIN B12 LEVEL 513 PG/ML (247-911)
== END ==
LOC: M PLAIMG 11:16
PROVIDERS: ATTEND Family Medicine
DX: M25.572 Pain in left ankle and joints of left foot (principal); E11.40 Type 2 diabetes mellitus with diabetic neuropathy, unspecified; R80.9 Proteinuria, unspecified; I10 Essential (primary) hypertension; E03.9 Hypothyroidism, unspecified; E55.9 Vitamin D deficiency, unspecified; D50.9 Iron deficiency anemia, unspecified; M77.32 Calcaneal spur, left foot

== ENCOUNTER → 2021-11-26 | Outpatient (REF) | payer MEDICARE, OTHER | LOC: M SFHCPLAZ 15:04 | PROVIDERS: ATTEND Family Medicine | DX: R19.7 Diarrhea, unspecified (principal) ==

== ENCOUNTER → 2021-12-01 | Outpatient (REF) | payer MEDICARE, OTHER | LOC: M SFHCPLAZ 12:59 | PROVIDERS: ATTEND Family Medicine | DX: U07.1 COVID-19 (principal) ==

== ENCOUNTER → 2021-12-01 | Outpatient (CLI) | payer MEDICARE, OTHER ==
[2021-12-01 12:17] LABS: PROSTATIC SPECIFIC AG MONITOR < 0.01 NG/ML (< 4.00)
[2021-12-01 12:24] LABS: TESTOSTERONE < 7 NG/DL (241-827)
== END ==
LOC: M ONCR 09:48
PROVIDERS: ATTEND General Practice
DX: C61 Malignant neoplasm of prostate (principal); U07.1 COVID-19; Z79.4 Long term (current) use of insulin; Z92.3 Personal history of irradiation

== ENCOUNTER → 2021-12-06 | Outpatient (CLI) | payer MEDICARE, OTHER ==
[2021-12-06 14:51] LABS: BASO % 0.2 % (0.0-1.0); EOS % 0.4 % (0.0-3.0); HEMATOCRIT 41.1 % (42.0-52.0); HEMOGLOBIN 13.7 g/dl (13.5-17.5); LYMPH # 0.5 10^3/uL (1.5-5.0); LYMPH % 10.1 % (24.0-44.0); MEAN CORPUSCULAR HGB CONC 33.3 g/dl (32.0-36.5); MONO # 0.3 10^3/uL (0.0-0.8); MONO % 7.1 % (2.0-8.0); NEUTROPHILS # 3.8 10^3/uL (1.5-8.5); NEUTROPHILS % 81.3 % (36.0-66.0); PLATELET COUNT, AUTOMATED 195 10^3/uL (150-450); RED BLOOD COUNT 4.89 10^6/uL (4.30-6.10); WHITE BLOOD COUNT 4.7 10^3/uL (4.0-10.0)
[2021-12-06 15:09] LABS: ALBUMIN 3.4 GM/DL (3.2-5.2); ALT/SGPT 63 U/L (12-78); BILIRUBIN,TOTAL 0.6 MG/DL (0.2-1.0); BLOOD UREA NITROGEN 12 MG/DL (7-18); CALCIUM LEVEL 9.5 MG/DL (8.8-10.2); CARBON DIOXIDE LEVEL 33 MEQ/L (21-32); CHLORIDE LEVEL 104 MEQ/L (98-107); CREATININE FOR GFR 0.91 MG/DL (0.70-1.30); FREE T4 1.41 NG/DL (0.76-1.46); GLOMERULAR FILTRATION RATE > 60.0 (>42); GLUCOSE, FASTING 105 MG/DL (70-100); POTASSIUM SERUM 4.4 MEQ/L (3.5-5.1); SODIUM LEVEL 141 MEQ/L (136-145); TOTAL PROTEIN 6.2 GM/DL (6.4-8.2)
== END ==
LOC: M PLALAB 11:35
PROVIDERS: ATTEND Family Medicine
DX: R19.7 Diarrhea, unspecified (principal); U07.1 COVID-19

== ENCOUNTER 2021-12-11 10:19 | Observation (INO) | payer MEDICARE, OTHER ==
[2021-12-11] MEDS ORDERED: LANTINJ4 SC ×2 (10:52→16:56)
[2021-12-11] MEDS ORDERED: NS 1,000 ML IV ONE (11:05)
[2021-12-11 12:20] LABS: EOS % 0.3 % (0.0-3.0); HEMATOCRIT 33.5 % (42.0-52.0); HEMOGLOBIN 12.2 g/dl (13.5-17.5); LYMPH # 0.3 10^3/uL (1.5-5.0); LYMPH % 8.1 % (24.0-44.0); MEAN CORPUSCULAR HEMOGLOBIN 31.4 pg (27.0-33.0); MEAN CORPUSCULAR HGB CONC 36.4 g/dl (32.0-36.5); MEAN CORPUSCULAR VOLUME 86.3 fl (80.0-96.0); MONO # 0.3 10^3/uL (0.0-0.8); MONO % 8.3 % (2.0-8.0); NEUTROPHILS # 3.1 10^3/uL (1.5-8.5); PLATELET COUNT, AUTOMATED 179 10^3/uL (150-450); RED BLOOD COUNT 3.88 10^6/uL (4.30-6.10); WHITE BLOOD COUNT 3.7 10^3/uL (4.0-10.0)
[2021-12-11 12:31] LABS: PROTHROMBIN TIME 13.6 SECONDS (12.7-14.5)
[2021-12-11 12:32] LABS: PARTIAL THROMBOPLASTIN TIME 41.5 SECONDS (25.9-37.0)
[2021-12-11 12:34] LABS: ALBUMIN 2.8 GM/DL (3.2-5.2); ALT/SGPT 36 U/L (12-78); BILIRUBIN,DIRECT 0.1 MG/DL (0.0-0.2); BILIRUBIN,TOTAL 0.6 MG/DL (0.2-1.0); BLOOD UREA NITROGEN 15 MG/DL (7-18); CALCIUM LEVEL 8.8 MG/DL (8.8-10.2); CARBON DIOXIDE LEVEL 30 MEQ/L (21-32); CHLORIDE LEVEL 109 MEQ/L (98-107); CK-MB VALUE MASS 1.2 NG/ML (<3.6); CREATININE FOR GFR 0.76 MG/DL (0.70-1.30); GLOMERULAR FILTRATION RATE > 60.0 (>42); GLUCOSE, FASTING 111 MG/DL (70-100); LIPASE 57 U/L (73-393); MB/CK RELATIVE INDEX 3.75 (< OR =4); POTASSIUM SERUM 3.2 MEQ/L (3.5-5.1); SODIUM LEVEL 144 MEQ/L (136-145)
[2021-12-11] MEDS ORDERED: ISOVUE-370 76% 100ML VIAL As Ordered ONE (13:27)
[2021-12-11 14:18] LABS: CK-MB VALUE MASS < 1.0 NG/ML (<3.6); CPK CREATINE PHOSPHOKINASE 19 U/L (39-308); MB/CK RELATIVE INDEX 5.26 (< OR =4)
[2021-12-11 14:40] LABS: RSV AMPLIFICATION NEGATIVE (NEGATIVE)
[2021-12-11] MEDS ORDERED: GLUCAGON INJ 1MG VIAL SC PRN (16:40)
[2021-12-11] MEDS ORDERED: ACETAMINOPHEN TAB 650MG DOSE (2X325MG) PO PRN (16:40)
[2021-12-11] MEDS ORDERED: DEXTROSE 50% 50 ML SYRINGE IV PRN (16:40)
[2021-12-11] MEDS ORDERED: GLUCOSE 4GM CHEW TABLET PO PRN (16:40)
[2021-12-11] MEDS ORDERED: IBUP200T46 PO (16:56)
[2021-12-11] MEDS ORDERED: BUSP10TA PO (16:56)
[2021-12-11] MEDS ORDERED: GABA-282 PO (16:56)
[2021-12-11] MEDS ORDERED: DONE10TA90 PO (16:56)
[2021-12-11] MEDS ORDERED: POTA10CA32 PO (16:56)
[2021-12-11] MEDS ORDERED: FLOM0.4C39 PO (16:56)
[2021-12-11] MEDS ORDERED: DULO30CA9 PO (16:56)
[2021-12-11] MEDS ORDERED: HOME MED LIST COMPLETE! XX SCH (17:00)
[2021-12-11] MEDS ORDERED: lisinopriL 5 MG TAB PO SCH (18:00)
[2021-12-11] MEDS ORDERED: MAGNESIUM CITRATE 300 ML BTL PO ONE (18:00)
[2021-12-11] MEDS ORDERED: CYANOCOBALAMIN 500 MCG TAB PO SCH (18:00)
[2021-12-11] MEDS ORDERED: GABAPENTIN 300 MG CAP PO PRN (18:20)
[2021-12-11 18:30] VITALS: BP 182/80
[2021-12-11] MEDS: INSULIN LISPRO (NovoLOG) PER UNIT SC SCH (18:37)
[2021-12-11] MEDS: amLODIPine 5 MG TAB PO SCH (18:45)
[2021-12-11 19:47] VITALS: BP 182/81
[2021-12-11] MEDS ORDERED: INSULIN LISPRO (NovoLOG) PER UNIT SC SCH (21:00)
[2021-12-11] MEDS ORDERED: TAMSULOSIN 0.4 MG CAP PO SCH (21:00)
[2021-12-11] MEDS ORDERED: ASPIRIN 81MG ENTERIC TABLET PO SCH (21:00)
[2021-12-11] MEDS: SENOKOT S TAB PO SCH (21:00)
[2021-12-11] MEDS: POTASSIUM CHLORIDE 10MEQ SR TABLET PO SCH (21:08)
[2021-12-11] MEDS: VITAMIN D 1,000 INTERNATIONAL UNITS TABLET PO SCH (21:08)
[2021-12-11] MEDS: busPIRone 10 MG TAB PO SCH (21:08)
[2021-12-12 03:47] VITALS: BP 149/67
[2021-12-12] MEDS: INSULIN LISPRO (NovoLOG) PER UNIT SC SCH ×2 (08:36→12:24)
[2021-12-12] MEDS: POTASSIUM CHLORIDE 10MEQ SR TABLET PO SCH (08:37)
[2021-12-12] MEDS: VITAMIN D 1,000 INTERNATIONAL UNITS TABLET PO SCH (08:38)
[2021-12-12 08:40] VITALS: BP 160/78
[2021-12-12] MEDS: amLODIPine 5 MG TAB PO SCH (08:40)
[2021-12-12] MEDS: SENOKOT S TAB PO SCH (08:40)
[2021-12-12] MEDS: busPIRone 10 MG TAB PO SCH (08:40)
[2021-12-12 08:59] LABS: HEMATOCRIT 36.6 % (42.0-52.0); HEMOGLOBIN 12.4 g/dl (13.5-17.5); MEAN CORPUSCULAR HEMOGLOBIN 29.9 pg (27.0-33.0); MEAN CORPUSCULAR HGB CONC 33.9 g/dl (32.0-36.5); MEAN CORPUSCULAR VOLUME 88.2 fl (80.0-96.0); PLATELET COUNT, AUTOMATED 187 10^3/uL (150-450); RED BLOOD COUNT 4.15 10^6/uL (4.30-6.10); WHITE BLOOD COUNT 3.3 10^3/uL (4.0-10.0)
[2021-12-12] MEDS ORDERED: DULoxetine 30MG CAPSULE (CYMBALTA) PO SCH (09:00)
[2021-12-12] MEDS ORDERED: MOM 30ML SUSPENSION UDC PO PRN (09:00)
[2021-12-12] MEDS ORDERED: PANTOPRAZOLE 40MG TAB (PROTONIX) PO SCH (09:00)
[2021-12-12] MEDS ORDERED: ROSUVASTATIN 10 MG TAB (CRESTOR) PO SCH (09:00)
[2021-12-12] MEDS ORDERED: CLOPIDOGREL 75 MG TAB PO SCH (09:00)
[2021-12-12] MEDS ORDERED: EZETIMIBE 10MG TABLET (ZETIA) PO SCH (09:00)
[2021-12-12] MEDS ORDERED: LEVEMIR (INSULIN DETEMIR) 1 UNITS/0.01ML SC SCH (09:00)
[2021-12-12] MEDS ORDERED: MULTIVITAMINS/MINERALS THERAP 1 TAB PO SCH (09:00)
[2021-12-12] MEDS ORDERED: ENOXAPARIN 40MG/0.4ML SYRINGE (J1650 PER 10MG) SC SCH (09:00)
[2021-12-12] MEDS ORDERED: DONEPEZIL 5 MG TAB PO SCH (09:00)
[2021-12-12 09:17] LABS: BLOOD UREA NITROGEN 10 MG/DL (7-18); CALCIUM LEVEL 9.6 MG/DL (8.8-10.2); CARBON DIOXIDE LEVEL 28 MEQ/L (21-32); CHLORIDE LEVEL 107 MEQ/L (98-107); CREATININE FOR GFR 0.93 MG/DL (0.70-1.30); GLOMERULAR FILTRATION RATE > 60.0 (>42); GLUCOSE, FASTING 200 MG/DL (70-100); MAGNESIUM LEVEL 1.8 MG/DL (1.8-2.4); POTASSIUM SERUM 3.7 MEQ/L (3.5-5.1); SODIUM LEVEL 142 MEQ/L (136-145)
[2021-12-12 12:00] VITALS: BP 173/74
== END 2021-12-12 13:00 | disposition home or self-care (01) ==
LOC: EDBD 10:19 → M ED 10:19 → EDSEX 10:19 → M ED INP 16:38 → M 4MAIN 18:30
PROVIDERS: ADMIT Internal Medicine; ATTEND Internal Medicine
DX: K59.00 Constipation, unspecified (principal); M62.81 Muscle weakness (generalized); K56.7 Ileus, unspecified; R54 Age-related physical debility; K52.0 Gastroenteritis and colitis due to radiation; C61 Malignant neoplasm of prostate; I25.10 Atherosclerotic heart disease of native coronary artery without angina pectoris; Z95.1 Presence of aortocoronary bypass graft; E11.40 Type 2 diabetes mellitus with diabetic neuropathy, unspecified; Z79.4 Long term (current) use of insulin; I10 Essential (primary) hypertension; G47.33 Obstructive sleep apnea (adult) (pediatric); F43.10 Post-traumatic stress disorder, unspecified; Z86.16 Personal history of COVID-19; Z79.899 Other long term (current) drug therapy; Z79.82 Long term (current) use of aspirin; Z79.02 Long term (current) use of antithrombotics/antiplatelets; M25.572 Pain in left ankle and joints of left foot
CPT/HCPCS: 36415; 73610; 74018; 74177; 80047; 80048; 80076; 82550; 82553; 83605; 83690; 83735; 84484; 85025; 85027; 85610; 85730; 87040; 87426; 87631; 93005; 93041; 96372; 96374; 97116; 97161; 99285; G0378; J1650; J1815; Q9967

== ENCOUNTER → 2021-12-23 | Outpatient (CLI) | payer MEDICARE, OTHER ==
[~2021-12-23] MED LIST changes: +BUSP10TA PO; +IBUP200T46 PO; +POTA10CA32 PO
[2021-12-23 13:48] LABS: HEMATOCRIT 36.6 % (42.0-52.0); HEMOGLOBIN 11.9 g/dl (13.5-17.5); MEAN CORPUSCULAR HEMOGLOBIN 28.7 pg (27.0-33.0); MEAN CORPUSCULAR HGB CONC 32.5 g/dl (32.0-36.5); MEAN CORPUSCULAR VOLUME 88.4 fl (80.0-96.0); PLATELET COUNT, AUTOMATED 168 10^3/uL (150-450); RED BLOOD COUNT 4.14 10^6/uL (4.30-6.10); WHITE BLOOD COUNT 3.1 10^3/uL (4.0-10.0)
[2021-12-23 14:35] LABS: BLOOD UREA NITROGEN 11 MG/DL (7-18); CARBON DIOXIDE LEVEL 31 MEQ/L (21-32); CHLORIDE LEVEL 107 MEQ/L (98-107); CREATININE FOR GFR 0.86 MG/DL (0.70-1.30); GLOMERULAR FILTRATION RATE > 60.0 (>42); GLUCOSE, FASTING 114 MG/DL (70-100); POTASSIUM SERUM 4.4 MEQ/L (3.5-5.1); SODIUM LEVEL 144 MEQ/L (136-145)
[2021-12-23 14:36] LABS: ALBUMIN 3.3 GM/DL (3.2-5.2); ALT/SGPT 49 U/L (12-78); BILIRUBIN,TOTAL 0.7 MG/DL (0.2-1.0); CALCIUM LEVEL 9.1 MG/DL (8.8-10.2); CHOLESTEROL LEVEL 156 MG/DL (<200); CHOLESTEROL RISK RATIO 2.943 (<5); FREE T4 1.23 NG/DL (0.76-1.46); HDL CHOLESTEROL 53 MG/DL (>40); LDL CHOLESTEROL 80 MG/DL (<100); NON-HDL-C 103 MG/DL; TOTAL PROTEIN 6.5 GM/DL (6.4-8.2); TRIGLYCERIDES LEVEL 116 MG/DL (<150)
[2021-12-23 14:45] LABS: MAU/CREAT RATIO 451.3 MCG/MG (0.0-30.0)
[2021-12-23 15:14] LABS: HEMOGLOBIN A1c 5.7 %
[2021-12-24 09:58] LABS: TOTAL 25(OH) VITAMIN D 38.1 NG/ML (30.0-100.0); VITAMIN B12 LEVEL 644 PG/ML (247-911)
== END ==
LOC: M PLALAB 09:54
PROVIDERS: ATTEND Internal Medicine Hematology
DX: M54.41 Lumbago with sciatica, right side (principal); E78.2 Mixed hyperlipidemia; M25.78 Osteophyte, vertebrae; M51.36 Other intervertebral disc degeneration, lumbar region; M41.86 Other forms of scoliosis, lumbar region

== ENCOUNTER 2022-01-14 09:00 | Inpatient (IN) | payer OTHER, MEDICARE ==
[~2022-01-14] VITALS: Ht 177.8 cm; Wt 92.5 kg
[2022-01-14] MEDS ORDERED: ONDANSETRON 4MG 2ML VIAL IV ONE (09:55)
[2022-01-14 10:39] LABS: AMPHETAMINES LEVEL URINE NEGATIVE (NEGATIVE); BARBITURATES URINE NEGATIVE (NEGATIVE); BENZODIAZEPINES URINE NEGATIVE (NEGATIVE); CANNABINOIDS URINE NEGATIVE (NEGATIVE); COCAINE METABOLITE URINE NEGATIVE (NEGATIVE); METHADONE URINE NEGATIVE (NEGATIVE); OPIATES URINE NEGATIVE (NEGATIVE); PHENCYCLIDINE URINE NEGATIVE (NEGATIVE)
[2022-01-14 11:00] LABS: HEMATOCRIT 35.8 % (42.0-52.0); HEMOGLOBIN 12.2 g/dl (13.5-17.5); MEAN CORPUSCULAR HEMOGLOBIN 29.4 pg (27.0-33.0); MEAN CORPUSCULAR HGB CONC 34.1 g/dl (32.0-36.5); MEAN CORPUSCULAR VOLUME 86.3 fl (80.0-96.0); PLATELET COUNT, AUTOMATED 226 10^3/uL (150-450); RED BLOOD COUNT 4.15 10^6/uL (4.30-6.10); WHITE BLOOD COUNT 7.7 10^3/uL (4.0-10.0)
[2022-01-14] MEDS: MORPHINE 4 MG/ML 1ML VIAL/SYRINGE IV PRN ×2 (11:01→11:52)
[2022-01-14 11:30] LABS: RSV AMPLIFICATION NEGATIVE (NEGATIVE)
[2022-01-14 11:36] LABS: ACETAMINOPHEN LEVEL < 2.0 UG/ML (10.0-30.0); ALBUMIN 3.4 GM/DL (3.2-5.2); ALT/SGPT 42 U/L (12-78); BILIRUBIN,DIRECT 0.2 MG/DL (0.0-0.2); BILIRUBIN,TOTAL 0.6 MG/DL (0.2-1.0); BLOOD UREA NITROGEN 14 MG/DL (7-18); CALCIUM LEVEL 9.7 MG/DL (8.8-10.2); CARBON DIOXIDE LEVEL 23 MEQ/L (21-32); CHLORIDE LEVEL 108 MEQ/L (98-107); CREATININE FOR GFR 0.85 MG/DL (0.70-1.30); ETHYL ALCOHOL (ETHANOL) < 0.003 % (0.000-0.010); GLOMERULAR FILTRATION RATE > 60.0 (>42); GLUCOSE, FASTING 189 MG/DL (70-100); POTASSIUM SERUM 3.8 MEQ/L (3.5-5.1); SALICYLATE LEVEL < 1.7 MG/DL (5.0-30.0); SODIUM LEVEL 144 MEQ/L (136-145); TOTAL PROTEIN 6.4 GM/DL (6.4-8.2)
[2022-01-14] MEDS ORDERED: PERCOCET 5MG/325MG TAB PO ONE (15:15)
[2022-01-14] MEDS ORDERED: META0.52 PO (16:28)
[2022-01-14] MEDS ORDERED: IPRA6SP NARES (16:28)
[2022-01-14] MEDS ORDERED: ALIG10.5 PO (16:28)
[2022-01-14] MEDS ORDERED: [UNRECOGNIZED DRUG - CODE] TOP (16:28)
[2022-01-14] MEDS ORDERED: HOME MED LIST COMPLETE! XX SCH (16:30)
[2022-01-14] MEDS ORDERED: traZODone 50 MG TAB PO PRN (17:50)
[2022-01-14] MEDS ORDERED: MAALOX 30 ML SUSP *UDC PO PRN (17:50)
[2022-01-14] MEDS ORDERED: MOM 30ML SUSPENSION UDC PO PRN (17:50)
[2022-01-14] MEDS: metFORMIN XR 500MG TAB *GLUCOPHAGE XR PO SCH (21:15)
[2022-01-14] MEDS: busPIRone 10 MG TAB PO SCH (21:15)
[2022-01-14] MEDS: TAMSULOSIN 0.4 MG CAP PO SCH (21:15)
[2022-01-14] MEDS: VITAMIN D 1,000 INTERNATIONAL UNITS TABLET PO SCH (21:16)
[2022-01-14] MEDS: POTASSIUM CHLORIDE 10MEQ SR TABLET PO SCH (21:16)
[2022-01-14] MEDS: ASPIRIN 81MG ENTERIC TABLET PO SCH (21:17)
[2022-01-14] MEDS: ACETAMINOPHEN TAB 650MG DOSE (2X325MG) PO PRN (21:23)
[2022-01-15 00:05] VITALS: BP 138/78
[2022-01-15] MEDS: PERCOCET 5MG/325MG TAB PO PRN ×3 (01:12→22:27)
[2022-01-15] MEDS ORDERED: DEXTROSE 50% 50 ML SYRINGE IV PRN (04:20)
[2022-01-15] MEDS ORDERED: GLUCOSE 4GM CHEW TABLET PO PRN (04:20)
[2022-01-15] MEDS ORDERED: GLUCAGON INJ 1MG VIAL SC PRN (04:20)
[2022-01-15] MEDS: INSULIN LISPRO (NovoLOG) PER UNIT SC SCH ×4 (06:44→21:00)
[2022-01-15] MEDS: LEVEMIR (INSULIN DETEMIR) 1 UNITS/0.01ML SC SCH (10:13)
[2022-01-15] MEDS: metFORMIN XR 500MG TAB *GLUCOPHAGE XR PO SCH ×2 (10:14→21:16)
[2022-01-15] MEDS: EZETIMIBE 10MG TABLET (ZETIA) PO SCH (10:14)
[2022-01-15] MEDS: VITAMIN D 1,000 INTERNATIONAL UNITS TABLET PO SCH ×2 (10:15→21:16)
[2022-01-15] MEDS: CLOPIDOGREL 75 MG TAB PO SCH (10:15)
[2022-01-15] MEDS: busPIRone 10 MG TAB PO SCH ×2 (10:16→21:16)
[2022-01-15] MEDS: POTASSIUM CHLORIDE 10MEQ SR TABLET PO SCH ×2 (10:16→21:17)
[2022-01-15] MEDS: ROSUVASTATIN 10 MG TAB (CRESTOR) PO SCH (10:16)
[2022-01-15] MEDS: PANTOPRAZOLE 40MG TAB (PROTONIX) PO SCH (10:16)
[2022-01-15] MEDS: amLODIPine 5 MG TAB PO SCH (10:17)
[2022-01-15] MEDS: lisinopriL 5 MG TAB PO SCH (10:23)
[2022-01-15 17:49] VITALS: BP 173/83
[2022-01-15] MEDS ORDERED: PRAZOSIN 1 MG CAP PO SCH (21:00)
[2022-01-15] MEDS ORDERED: zolPIDEM TARTRATE 5 MG TAB PO SCH (21:00)
[2022-01-15] MEDS: ACETAMINOPHEN TAB 650MG DOSE (2X325MG) PO PRN (21:16)
[2022-01-15] MEDS: ASPIRIN 81MG ENTERIC TABLET PO SCH (21:16)
[2022-01-15] MEDS: TAMSULOSIN 0.4 MG CAP PO SCH (21:16)
[2022-01-15 21:37] VITALS: BP 158/80
[2022-01-15 23:07] VITALS: BP 164/76
[2022-01-15 23:54] VITALS: BP 168/80
[2022-01-16] MEDS ORDERED: lisinopriL 5 MG TAB PO ONE (01:00)
[2022-01-16] MEDS ORDERED: LORazepam 0.5 MG TAB PO ONE (01:00)
[2022-01-16 01:40] VITALS: BP 160/82
[2022-01-16 03:40] VITALS: BP 158/80
[2022-01-16 06:11] VITALS: BP 152/76
[2022-01-16] MEDS: PERCOCET 5MG/325MG TAB PO PRN ×3 (06:27→18:59)
[2022-01-16] MEDS: INSULIN LISPRO (NovoLOG) PER UNIT SC SCH ×4 (06:43→20:44)
[2022-01-16] MEDS ORDERED: SERTRALINE HCL 25 MG TABLET PO SCH (09:00)
[2022-01-16] MEDS: EZETIMIBE 10MG TABLET (ZETIA) PO SCH (09:09)
[2022-01-16] MEDS: LEVEMIR (INSULIN DETEMIR) 1 UNITS/0.01ML SC SCH (09:09)
[2022-01-16] MEDS: VITAMIN D 1,000 INTERNATIONAL UNITS TABLET PO SCH ×2 (09:09→20:38)
[2022-01-16] MEDS: metFORMIN XR 500MG TAB *GLUCOPHAGE XR PO SCH ×2 (09:10→20:37)
[2022-01-16] MEDS: busPIRone 10 MG TAB PO SCH ×2 (09:10→20:39)
[2022-01-16] MEDS: PANTOPRAZOLE 40MG TAB (PROTONIX) PO SCH (09:10)
[2022-01-16] MEDS: POTASSIUM CHLORIDE 10MEQ SR TABLET PO SCH ×2 (09:10→20:38)
[2022-01-16] MEDS: CLOPIDOGREL 75 MG TAB PO SCH (09:10)
[2022-01-16] MEDS: amLODIPine 5 MG TAB PO SCH (09:10)
[2022-01-16] MEDS: lisinopriL 5 MG TAB PO SCH (09:11)
[2022-01-16] MEDS: ROSUVASTATIN 10 MG TAB (CRESTOR) PO SCH (09:11)
[2022-01-16 18:21] VITALS: BP 142/65
[2022-01-16] MEDS: zolPIDEM TARTRATE 5 MG TAB PO SCH (20:37)
[2022-01-16] MEDS: ASPIRIN 81MG ENTERIC TABLET PO SCH (20:38)
[2022-01-16] MEDS: IBUPROFEN 400MG TAB PO PRN (20:38)
[2022-01-16] MEDS: TAMSULOSIN 0.4 MG CAP PO SCH (20:38)
[2022-01-17] MEDS: INSULIN LISPRO (NovoLOG) PER UNIT SC SCH ×4 (07:00→21:00)
[2022-01-17] MEDS: PERCOCET 5MG/325MG TAB PO PRN ×3 (07:00→21:07)
[2022-01-17 07:15] VITALS: BP 178/82
[2022-01-17] MEDS: LEVEMIR (INSULIN DETEMIR) 1 UNITS/0.01ML SC SCH (07:54)
[2022-01-17] MEDS: POTASSIUM CHLORIDE 10MEQ SR TABLET PO SCH ×2 (07:55→21:04)
[2022-01-17] MEDS: busPIRone 10 MG TAB PO SCH ×2 (07:55→21:04)
[2022-01-17] MEDS: metFORMIN XR 500MG TAB *GLUCOPHAGE XR PO SCH ×2 (07:55→21:04)
[2022-01-17] MEDS: VITAMIN D 1,000 INTERNATIONAL UNITS TABLET PO SCH ×2 (07:56→21:04)
[2022-01-17] MEDS: CLOPIDOGREL 75 MG TAB PO SCH (07:56)
[2022-01-17] MEDS: GABAPENTIN 300 MG CAP PO PRN (07:56)
[2022-01-17] MEDS: ROSUVASTATIN 10 MG TAB (CRESTOR) PO SCH (07:56)
[2022-01-17] MEDS: EZETIMIBE 10MG TABLET (ZETIA) PO SCH (07:56)
[2022-01-17] MEDS: amLODIPine 5 MG TAB PO SCH (07:56)
[2022-01-17] MEDS: lisinopriL 5 MG TAB PO SCH (07:57)
[2022-01-17] MEDS: PANTOPRAZOLE 40MG TAB (PROTONIX) PO SCH (07:57)
[2022-01-17] MEDS ORDERED: SERTRALINE HCL 50 MG TAB PO SCH (09:00)
[2022-01-17] MEDS ORDERED: SERTRALINE HCL 25 MG TABLET PO SCH (09:00)
[2022-01-17] MEDS: DULoxetine 30MG CAPSULE (CYMBALTA) PO SCH (15:17)
[2022-01-17] MEDS: IBUPROFEN 400MG TAB PO PRN (15:21)
[2022-01-17 18:11] VITALS: BP 161/78
[2022-01-17] MEDS: TAMSULOSIN 0.4 MG CAP PO SCH (21:04)
[2022-01-17] MEDS: zolPIDEM TARTRATE 5 MG TAB PO SCH (21:04)
[2022-01-17] MEDS: ASPIRIN 81MG ENTERIC TABLET PO SCH (21:04)
[2022-01-17 23:10] VITALS: BP_SYST 122; BP_SYST 98; BP_DIAS 57; BP_DIAS 67; BP_DIAS 68
[2022-01-18] MEDS ORDERED: ONDANSETRON 4MG TAB PO PRN (04:55)
[2022-01-18 06:33] LABS: HEMATOCRIT 31.2 % (42.0-52.0); HEMOGLOBIN 10.6 g/dl (13.5-17.5); MEAN CORPUSCULAR HEMOGLOBIN 30.2 pg (27.0-33.0); MEAN CORPUSCULAR VOLUME 88.9 fl (80.0-96.0); PLATELET COUNT, AUTOMATED 210 10^3/uL (150-450); RED BLOOD COUNT 3.51 10^6/uL (4.30-6.10); WHITE BLOOD COUNT 8.7 10^3/uL (4.0-10.0)
[2022-01-18] MEDS: INSULIN LISPRO (NovoLOG) PER UNIT SC SCH ×4 (06:45→21:00)
[2022-01-18 06:53] VITALS: BP_SYST 120; BP_SYST 160; BP_SYST 171; BP_DIAS 66; BP_DIAS 72
[2022-01-18 06:53] LABS: BLOOD UREA NITROGEN 22 MG/DL (7-18); CALCIUM LEVEL 9.5 MG/DL (8.8-10.2); CARBON DIOXIDE LEVEL 26 MEQ/L (21-32); CHLORIDE LEVEL 108 MEQ/L (98-107); CREATININE FOR GFR 0.86 MG/DL (0.70-1.30); GLOMERULAR FILTRATION RATE > 60.0 (>42); GLUCOSE, FASTING 184 MG/DL (70-100); MAGNESIUM LEVEL 1.3 MG/DL (1.8-2.4); POTASSIUM SERUM 4.6 MEQ/L (3.5-5.1); SODIUM LEVEL 140 MEQ/L (136-145)
[2022-01-18] MEDS: DULoxetine 30MG CAPSULE (CYMBALTA) PO SCH (09:58)
[2022-01-18] MEDS: ROSUVASTATIN 10 MG TAB (CRESTOR) PO SCH (09:58)
[2022-01-18] MEDS: metFORMIN XR 500MG TAB *GLUCOPHAGE XR PO SCH ×2 (09:59→21:15)
[2022-01-18] MEDS: EZETIMIBE 10MG TABLET (ZETIA) PO SCH (09:59)
[2022-01-18] MEDS: busPIRone 10 MG TAB PO SCH ×2 (10:00→21:15)
[2022-01-18] MEDS: PANTOPRAZOLE 40MG TAB (PROTONIX) PO SCH (10:00)
[2022-01-18] MEDS: VITAMIN D 1,000 INTERNATIONAL UNITS TABLET PO SCH ×2 (10:00→21:16)
[2022-01-18] MEDS: POTASSIUM CHLORIDE 10MEQ SR TABLET PO SCH ×2 (10:00→21:15)
[2022-01-18] MEDS: CLOPIDOGREL 75 MG TAB PO SCH (10:00)
[2022-01-18] MEDS: MAGNESIUM OXIDE 400MG TAB (MAG-OX) PO SCH ×3 (10:01→21:14)
[2022-01-18] MEDS: amLODIPine 5 MG TAB PO SCH ×2 (10:01→21:21)
[2022-01-18] MEDS: LEVEMIR (INSULIN DETEMIR) 1 UNITS/0.01ML SC SCH (10:02)
[2022-01-18] MEDS ORDERED: SENOKOT S TAB PO PRN (10:40)
[2022-01-18] MEDS: PERCOCET 5MG/325MG TAB PO SCH ×2 (11:20→17:20)
[2022-01-18] MEDS: MUPIROCIN 2% OINT 22 GM TUBE TOP SCH ×2 (12:17→21:15)
[2022-01-18] MEDS: IBUPROFEN 200MG TAB PO SCH ×3 (12:23→21:21)
[2022-01-18 17:08] VITALS: BP 150/82
[2022-01-18 18:00] VITALS: BP 170/78
[2022-01-18 18:01] VITALS: BP 180/82
[2022-01-18] MEDS: zolPIDEM TARTRATE 5 MG TAB PO SCH (21:15)
[2022-01-18] MEDS: ASPIRIN 81MG ENTERIC TABLET PO SCH (21:15)
[2022-01-19] MEDS: PERCOCET 5MG/325MG TAB PO SCH ×2 (00:11→06:11)
[2022-01-19 06:37] VITALS: BP 138/66
[2022-01-19] MEDS: INSULIN LISPRO (NovoLOG) PER UNIT SC SCH ×4 (06:37→21:00)
[2022-01-19] MEDS: POTASSIUM CHLORIDE 10MEQ SR TABLET PO SCH ×2 (09:00→21:20)
[2022-01-19] MEDS: MAGNESIUM OXIDE 400MG TAB (MAG-OX) PO SCH ×3 (09:01→21:21)
[2022-01-19] MEDS: amLODIPine 5 MG TAB PO SCH ×2 (09:01→21:22)
[2022-01-19] MEDS: CLOPIDOGREL 75 MG TAB PO SCH (09:01)
[2022-01-19] MEDS: busPIRone 10 MG TAB PO SCH ×2 (09:01→21:22)
[2022-01-19] MEDS: EZETIMIBE 10MG TABLET (ZETIA) PO SCH (09:02)
[2022-01-19] MEDS: metFORMIN XR 500MG TAB *GLUCOPHAGE XR PO SCH ×2 (09:02→21:20)
[2022-01-19] MEDS: DULoxetine 30MG CAPSULE (CYMBALTA) PO SCH (09:02)
[2022-01-19] MEDS: PANTOPRAZOLE 40MG TAB (PROTONIX) PO SCH (09:02)
[2022-01-19] MEDS: VITAMIN D 1,000 INTERNATIONAL UNITS TABLET PO SCH ×2 (09:03→21:20)
[2022-01-19] MEDS: ROSUVASTATIN 10 MG TAB (CRESTOR) PO SCH (09:03)
[2022-01-19] MEDS: LEVEMIR (INSULIN DETEMIR) 1 UNITS/0.01ML SC SCH (09:09)
[2022-01-19] MEDS: MUPIROCIN 2% OINT 22 GM TUBE TOP SCH ×2 (09:10→21:22)
[2022-01-19] MEDS: IBUPROFEN 200MG TAB PO SCH ×3 (09:10→17:07)
[2022-01-19] MEDS: PERCOCET 5MG/325MG TAB PO PRN ×2 (11:52→16:36)
[2022-01-19] MEDS ORDERED: ANALGESIC BALM CRM 3OZ TOP SCH (13:00)
[2022-01-19] MEDS ORDERED: IBUPROFEN 400MG TAB PO ONE (17:20)
[2022-01-19] MEDS ORDERED: traMADol 50 MG TAB PO ONE (17:20)
[2022-01-19 18:00] VITALS: BP 148/72
[2022-01-19] MEDS: zolPIDEM TARTRATE 5 MG TAB PO SCH (21:21)
[2022-01-19] MEDS: ASPIRIN 81MG ENTERIC TABLET PO SCH (21:21)
[2022-01-20] MEDS: PERCOCET 5MG/325MG TAB PO PRN ×3 (06:47→21:49)
[2022-01-20 06:58] VITALS: BP 176/81
[2022-01-20] MEDS: INSULIN LISPRO (NovoLOG) PER UNIT SC SCH ×4 (07:04→21:00)
[2022-01-20] MEDS: LEVEMIR (INSULIN DETEMIR) 1 UNITS/0.01ML SC SCH (08:32)
[2022-01-20] MEDS: DULoxetine 30MG CAPSULE (CYMBALTA) PO SCH (08:33)
[2022-01-20] MEDS: ROSUVASTATIN 10 MG TAB (CRESTOR) PO SCH (08:33)
[2022-01-20] MEDS: VITAMIN D 1,000 INTERNATIONAL UNITS TABLET PO SCH ×2 (08:33→21:50)
[2022-01-20] MEDS: EZETIMIBE 10MG TABLET (ZETIA) PO SCH (08:33)
[2022-01-20] MEDS: amLODIPine 5 MG TAB PO SCH ×2 (08:34→21:50)
[2022-01-20] MEDS: CLOPIDOGREL 75 MG TAB PO SCH (08:34)
[2022-01-20] MEDS: POTASSIUM CHLORIDE 10MEQ SR TABLET PO SCH ×2 (08:34→21:50)
[2022-01-20] MEDS: PANTOPRAZOLE 40MG TAB (PROTONIX) PO SCH (08:34)
[2022-01-20] MEDS: busPIRone 10 MG TAB PO SCH ×2 (08:35→21:51)
[2022-01-20] MEDS: metFORMIN XR 500MG TAB *GLUCOPHAGE XR PO SCH ×2 (08:35→21:50)
[2022-01-20] MEDS: MUPIROCIN 2% OINT 22 GM TUBE TOP SCH ×2 (08:35→21:51)
[2022-01-20] MEDS: MAGNESIUM OXIDE 400MG TAB (MAG-OX) PO SCH ×3 (08:35→21:50)
[2022-01-20] MEDS: IBUPROFEN 400MG TAB PO PRN (08:52)
[2022-01-20] MEDS ORDERED: ONDANSETRON 4MG ORAL DISINTEGRATING TAB PO PRN (11:40)
[2022-01-20] MEDS: GABAPENTIN 300 MG CAP PO PRN (12:35)
[2022-01-20 18:37] VITALS: BP 140/68
[2022-01-20] MEDS: ASPIRIN 81MG ENTERIC TABLET PO SCH (21:50)
[2022-01-20] MEDS: zolPIDEM TARTRATE 5 MG TAB PO SCH (21:50)
[2022-01-21 06:24] VITALS: BP 150/70
[2022-01-21] MEDS: INSULIN LISPRO (NovoLOG) PER UNIT SC SCH ×4 (06:30→20:31)
[2022-01-21] MEDS: MUPIROCIN 2% OINT 22 GM TUBE TOP SCH ×2 (07:34→20:45)
[2022-01-21] MEDS: EZETIMIBE 10MG TABLET (ZETIA) PO SCH (07:34)
[2022-01-21] MEDS: ROSUVASTATIN 10 MG TAB (CRESTOR) PO SCH (07:35)
[2022-01-21] MEDS: VITAMIN D 1,000 INTERNATIONAL UNITS TABLET PO SCH ×2 (07:35→20:36)
[2022-01-21] MEDS: metFORMIN XR 500MG TAB *GLUCOPHAGE XR PO SCH ×2 (07:36→20:35)
[2022-01-21] MEDS: MAGNESIUM OXIDE 400MG TAB (MAG-OX) PO SCH ×3 (07:36→20:35)
[2022-01-21] MEDS: DULoxetine 30MG CAPSULE (CYMBALTA) PO SCH (07:36)
[2022-01-21] MEDS: busPIRone 10 MG TAB PO SCH ×2 (07:36→20:35)
[2022-01-21] MEDS: amLODIPine 5 MG TAB PO SCH ×2 (07:36→20:36)
[2022-01-21] MEDS: PANTOPRAZOLE 40MG TAB (PROTONIX) PO SCH (07:36)
[2022-01-21] MEDS: GABAPENTIN 300 MG CAP PO PRN (07:37)
[2022-01-21] MEDS: CLOPIDOGREL 75 MG TAB PO SCH (07:37)
[2022-01-21] MEDS: POTASSIUM CHLORIDE 10MEQ SR TABLET PO SCH ×2 (07:37→20:35)
[2022-01-21] MEDS: PERCOCET 5MG/325MG TAB PO PRN ×3 (07:38→20:38)
[2022-01-21] MEDS: LEVEMIR (INSULIN DETEMIR) 1 UNITS/0.01ML SC SCH (07:41)
[2022-01-21] MEDS: IBUPROFEN 400MG TAB PO PRN (12:18)
[2022-01-21 18:45] VITALS: BP 136/65
[2022-01-21] MEDS: zolPIDEM TARTRATE 5 MG TAB PO SCH (20:34)
[2022-01-21] MEDS: ASPIRIN 81MG ENTERIC TABLET PO SCH (20:35)
[2022-01-22] MEDS: PERCOCET 5MG/325MG TAB PO PRN ×2 (02:38→09:25)
[2022-01-22] MEDS: IBUPROFEN 400MG TAB PO PRN (05:40)
[2022-01-22] MEDS: INSULIN LISPRO (NovoLOG) PER UNIT SC SCH ×4 (06:41→21:00)
[2022-01-22 07:03] VITALS: BP 160/58
[2022-01-22] MEDS: LOSARTAN 25 MG TAB PO SCH ×2 (09:00→21:07)
[2022-01-22] MEDS: MUPIROCIN 2% OINT 22 GM TUBE TOP SCH ×2 (09:22→21:13)
[2022-01-22] MEDS: amLODIPine 5 MG TAB PO SCH ×2 (09:23→21:08)
[2022-01-22] MEDS: MAGNESIUM OXIDE 400MG TAB (MAG-OX) PO SCH ×3 (09:23→21:08)
[2022-01-22] MEDS: CLOPIDOGREL 75 MG TAB PO SCH (09:24)
[2022-01-22] MEDS: busPIRone 10 MG TAB PO SCH ×2 (09:24→21:07)
[2022-01-22] MEDS: metFORMIN XR 500MG TAB *GLUCOPHAGE XR PO SCH ×2 (09:24→21:08)
[2022-01-22] MEDS: PANTOPRAZOLE 40MG TAB (PROTONIX) PO SCH (09:24)
[2022-01-22] MEDS: LEVEMIR (INSULIN DETEMIR) 1 UNITS/0.01ML SC SCH (09:24)
[2022-01-22] MEDS: EZETIMIBE 10MG TABLET (ZETIA) PO SCH (09:24)
[2022-01-22] MEDS: POTASSIUM CHLORIDE 10MEQ SR TABLET PO SCH ×2 (09:24→21:07)
[2022-01-22] MEDS: DULoxetine 30MG CAPSULE (CYMBALTA) PO SCH (09:25)
[2022-01-22] MEDS: ROSUVASTATIN 10 MG TAB (CRESTOR) PO SCH (09:25)
[2022-01-22] MEDS: VITAMIN D 1,000 INTERNATIONAL UNITS TABLET PO SCH ×2 (09:25→21:09)
[2022-01-22] MEDS ORDERED: ANEXSIA, NORCO 7.5MG/325MG TABLET(HYDROCODONE/APAP) PO ONE (12:00)
[2022-01-22] MEDS: LIDOCAINE 5% (LIDODERM) PATCH TD SCH (12:19)
[2022-01-22 17:48] VITALS: BP 145/90
[2022-01-22] MEDS: ASPIRIN 81MG ENTERIC TABLET PO SCH (21:07)
[2022-01-22] MEDS: zolPIDEM TARTRATE 5 MG TAB PO SCH (21:07)
[2022-01-22] MEDS: ANEXSIA, NORCO 7.5MG/325MG TABLET(HYDROCODONE/APAP) PO PRN (21:08)
[2022-01-22] MEDS: **NOTE PATIENT COMMENT** MISC XX SCH (21:51)
[2022-01-23] MEDS: ACETAMINOPHEN TAB 650MG DOSE (2X325MG) PO PRN (00:08)
[2022-01-23 06:00] VITALS: BP 177/79
[2022-01-23] MEDS: ANEXSIA, NORCO 7.5MG/325MG TABLET(HYDROCODONE/APAP) PO PRN ×4 (06:55→21:26)
[2022-01-23] MEDS: INSULIN LISPRO (NovoLOG) PER UNIT SC SCH ×4 (06:58→21:00)
[2022-01-23] MEDS: LEVEMIR (INSULIN DETEMIR) 1 UNITS/0.01ML SC SCH (10:07)
[2022-01-23] MEDS: metFORMIN XR 500MG TAB *GLUCOPHAGE XR PO SCH ×2 (10:08→21:22)
[2022-01-23] MEDS: ROSUVASTATIN 10 MG TAB (CRESTOR) PO SCH (10:08)
[2022-01-23] MEDS: busPIRone 10 MG TAB PO SCH ×2 (10:08→21:23)
[2022-01-23] MEDS: LOSARTAN 25 MG TAB PO SCH ×2 (10:08→21:24)
[2022-01-23] MEDS: CLOPIDOGREL 75 MG TAB PO SCH (10:09)
[2022-01-23] MEDS: MAGNESIUM OXIDE 400MG TAB (MAG-OX) PO SCH ×3 (10:09→21:23)
[2022-01-23] MEDS: VITAMIN D 1,000 INTERNATIONAL UNITS TABLET PO SCH ×2 (10:09→21:23)
[2022-01-23] MEDS: DULoxetine 30MG CAPSULE (CYMBALTA) PO SCH (10:09)
[2022-01-23] MEDS: PANTOPRAZOLE 40MG TAB (PROTONIX) PO SCH (10:09)
[2022-01-23] MEDS: EZETIMIBE 10MG TABLET (ZETIA) PO SCH (10:09)
[2022-01-23] MEDS: POTASSIUM CHLORIDE 10MEQ SR TABLET PO SCH ×2 (10:10→21:23)
[2022-01-23] MEDS: amLODIPine 5 MG TAB PO SCH ×2 (10:10→21:23)
[2022-01-23] MEDS: LIDOCAINE 5% (LIDODERM) PATCH TD SCH (10:10)
[2022-01-23] MEDS ORDERED: NORCO, ANEXSIA 5/325MG TABLET (HYDROcodone/ACETAMINOPHEN) PO ONE (11:25)
[2022-01-23 18:00] VITALS: BP 170/70
[2022-01-23] MEDS: ASPIRIN 81MG ENTERIC TABLET PO SCH (21:22)
[2022-01-23] MEDS: zolPIDEM TARTRATE 5 MG TAB PO SCH (21:24)
[2022-01-23] MEDS: **NOTE PATIENT COMMENT** MISC XX SCH (21:33)
[2022-01-24] MEDS: ANEXSIA, NORCO 7.5MG/325MG TABLET(HYDROCODONE/APAP) PO PRN ×2 (04:18→11:55)
[2022-01-24 06:50] VITALS: BP 144/74
[2022-01-24] MEDS: INSULIN LISPRO (NovoLOG) PER UNIT SC SCH ×2 (07:00→12:27)
[2022-01-24] MEDS: PANTOPRAZOLE 40MG TAB (PROTONIX) PO SCH (09:44)
[2022-01-24] MEDS: LIDOCAINE 5% (LIDODERM) PATCH TD SCH (09:44)
[2022-01-24] MEDS: DULoxetine 30MG CAPSULE (CYMBALTA) PO SCH (09:44)
[2022-01-24] MEDS: EZETIMIBE 10MG TABLET (ZETIA) PO SCH (09:44)
[2022-01-24] MEDS: metFORMIN XR 500MG TAB *GLUCOPHAGE XR PO SCH (09:45)
[2022-01-24] MEDS: MAGNESIUM OXIDE 400MG TAB (MAG-OX) PO SCH (09:45)
[2022-01-24] MEDS: ROSUVASTATIN 10 MG TAB (CRESTOR) PO SCH (09:46)
[2022-01-24] MEDS: CLOPIDOGREL 75 MG TAB PO SCH (09:46)
[2022-01-24] MEDS: busPIRone 10 MG TAB PO SCH (09:46)
[2022-01-24] MEDS: POTASSIUM CHLORIDE 10MEQ SR TABLET PO SCH (09:47)
[2022-01-24] MEDS: VITAMIN D 1,000 INTERNATIONAL UNITS TABLET PO SCH (09:47)
[2022-01-24] MEDS: LEVEMIR (INSULIN DETEMIR) 1 UNITS/0.01ML SC SCH (09:48)
[2022-01-24 10:01] VITALS: BP 164/82
[2022-01-24] MEDS: LOSARTAN 25 MG TAB PO SCH (10:01)
[2022-01-24] MEDS: amLODIPine 5 MG TAB PO SCH (10:01)
[2022-01-24] MEDS: GABAPENTIN 300 MG CAP PO PRN (12:09)
[2022-01-24] MEDS ORDERED: ONDA4TAB6 PO (15:42)
[2022-01-24] MEDS ORDERED: LIDO5TD TD (15:42)
[2022-01-24] MEDS ORDERED: AMBI5TAB PO (15:42)
[2022-01-24] MEDS ORDERED: DULO30CA9 PO (15:42)
[2022-01-24] MEDS ORDERED: COZA1TAB PO (15:46)
== END 2022-01-24 16:41 | disposition home or self-care (01) | DRG 754 ==
LOC: M ED 09:00 → M ED INP 17:49 → M PSY 01-15 00:05
PROVIDERS: ADMIT Psychiatry & Neurology Psychiatry; ATTEND Psychiatry & Neurology Psychiatry
DX: F32.A Depression, unspecified (principal); I95.9 Hypotension, unspecified; E11.40 Type 2 diabetes mellitus with diabetic neuropathy, unspecified; F03.90 Unspecified dementia, unspecified severity, without behavioral disturbance, psychotic disturbance, mood disturbance, and anxiety; E83.42 Hypomagnesemia; R45.851 Suicidal ideations; C61 Malignant neoplasm of prostate; I35.0 Nonrheumatic aortic (valve) stenosis; F43.10 Post-traumatic stress disorder, unspecified; F41.1 Generalized anxiety disorder; Z79.899 Other long term (current) drug therapy; Z79.82 Long term (current) use of aspirin; Z79.4 Long term (current) use of insulin; I10 Essential (primary) hypertension; N40.0 Benign prostatic hyperplasia without lower urinary tract symptoms; Z92.3 Personal history of irradiation; I25.10 Atherosclerotic heart disease of native coronary artery without angina pectoris; Z95.1 Presence of aortocoronary bypass graft; E78.5 Hyperlipidemia, unspecified; G47.33 Obstructive sleep apnea (adult) (pediatric); K21.9 Gastro-esophageal reflux disease without esophagitis; Z77.098 Contact with and (suspected) exposure to other hazardous, chiefly nonmedicinal, chemicals; Z95.2 Presence of prosthetic heart valve; S01.20XA Unspecified open wound of nose, initial encounter; W18.30XA Fall on same level, unspecified, initial encounter; Y92.230 Patient room in hospital as the place of occurrence of the external cause; F32.9 Major depressive disorder, single episode, unspecified

== ENCOUNTER → 2022-02-24 | Outpatient (CLI) | payer OTHER, MEDICARE ==
[~2022-02-24] MED LIST changes: +ALIG10.5 PO; +AMBI5TAB PO; +COZA1TAB PO; +IPRA6SP NARES; +LIDO5TD TD; +META0.52 PO; +[UNRECOGNIZED DRUG - CODE] TOP
== END ==
LOC: M PLALAB 08:56
PROVIDERS: ATTEND Urology
DX: C61 Malignant neoplasm of prostate (principal)

== ENCOUNTER → 2022-04-18 | Outpatient (CLI) | payer MEDICARE ==
[2022-04-18 13:48] LABS: HEMATOCRIT 38.3 % (42.0-52.0); MEAN CORPUSCULAR HEMOGLOBIN 30.7 pg (27.0-33.0); MEAN CORPUSCULAR HGB CONC 33.9 g/dl (32.0-36.5); MEAN CORPUSCULAR VOLUME 90.3 fl (80.0-96.0); PLATELET COUNT, AUTOMATED 175 10^3/uL (150-450); RED BLOOD COUNT 4.24 10^6/uL (4.30-6.10); WHITE BLOOD COUNT 5.1 10^3/uL (4.0-10.0)
[2022-04-18 14:18] LABS: ALBUMIN 3.5 GM/DL (3.2-5.2); ALT/SGPT 28 U/L (12-78); BILIRUBIN,TOTAL 0.4 MG/DL (0.2-1.0); BLOOD UREA NITROGEN 17 MG/DL (7-18); C REACTIVE PROTEIN QUANTITATIV 1.01 MG/DL (0.00-0.30); CARBON DIOXIDE LEVEL 26 MEQ/L (21-32); CHLORIDE LEVEL 109 MEQ/L (98-107); CHOLESTEROL LEVEL 246 MG/DL (<200); CHOLESTEROL RISK RATIO 5.347 (<5); CREATININE FOR GFR 0.87 MG/DL (0.70-1.30); FREE T4 1.17 NG/DL (0.76-1.46); GLOMERULAR FILTRATION RATE > 60.0 (>42); GLUCOSE, FASTING 142 MG/DL (70-100); HDL CHOLESTEROL 46 MG/DL (>40); LDL CHOLESTEROL 161 MG/DL (<100); NON-HDL-C 200 MG/DL; POTASSIUM SERUM 4.3 MEQ/L (3.5-5.1); SODIUM LEVEL 141 MEQ/L (136-145); TOTAL PROTEIN 6.7 GM/DL (6.4-8.2); TRIGLYCERIDES LEVEL 196 MG/DL (<150)
[2022-04-18 14:19] LABS: CREATININE, URINE 51.8 MG/DL; MAU/CREAT RATIO 351.3 MCG/MG (0.0-30.0)
[2022-04-18 14:22] LABS: HEMOGLOBIN A1c 6.2 %
[2022-04-18 14:51] LABS: TOTAL 25(OH) VITAMIN D 30.6 NG/ML (30.0-100.0); VITAMIN B12 LEVEL 829 PG/ML (247-911)
== END ==
LOC: M PLALAB 11:39
PROVIDERS: ATTEND Internal Medicine Hematology
DX: E11.40 Type 2 diabetes mellitus with diabetic neuropathy, unspecified (principal); Z79.4 Long term (current) use of insulin; F51.01 Primary insomnia; I10 Essential (primary) hypertension; H60.63 Unspecified chronic otitis externa, bilateral

== ENCOUNTER → 2022-05-25 | Outpatient (CLI) | payer MEDICARE, OTHER ==
[~2022-05-25] MED LIST changes: +CLOP75TA99 PO; +ELIQ5TAB PO; +LISI40TA4 PO; -PLAV1TAB2 PO; -POTA10CA32 PO; +POTA10CA33 PO; +QUET1TAB17 PO; +SERT50TA29 PO; +ZOLP5TAB PO
== END ==
LOC: M PLAIMG 13:36
PROVIDERS: ATTEND Physician Assistant
DX: S42.292D Other displaced fracture of upper end of left humerus, subsequent encounter for fracture with routine healing (principal); M19.012 Primary osteoarthritis, left shoulder

== ENCOUNTER → 2022-05-25 | Outpatient (CLI) | payer MEDICARE, OTHER ==
[~2022-05-25] MED LIST changes: +PROHANCE 279.3MG/ML 15ML VIAL ONE; +PROHANCE 279.3MG/ML 5ML VIAL ONE
== END ==
LOC: M PLAIMG 13:37
PROVIDERS: ATTEND Internal Medicine Hematology
DX: G44.229 Chronic tension-type headache, not intractable (principal); S99.912D Unspecified injury of left ankle, subsequent encounter; M76.62 Achilles tendinitis, left leg; R90.82 White matter disease, unspecified

== ENCOUNTER 2022-05-29 16:57 | Observation (INO) | payer MEDICARE, OTHER ==
[~2022-05-29] VITALS: Ht 177.8 cm; Wt 85.0 kg
[~2022-05-29 16:57] MED LIST changes: -ELIQ5TAB PO; -LISI40TA4 PO; +POTA10CA32 PO; -POTA10CA33 PO; -PROHANCE 279.3MG/ML 15ML VIAL ONE; -PROHANCE 279.3MG/ML 5ML VIAL ONE; -QUET1TAB17 PO; -SERT50TA29 PO; -ZOLP5TAB PO
[2022-05-29] MEDS ORDERED: ASPIRIN 81MG CHEW TABLET PO ONE (17:25)
[2022-05-29] MEDS ORDERED: NITROGLYCERIN 0.4 MG SUBL TABLET SL PRN (17:25)
[2022-05-29 17:37] LABS: BASO % 0.5 % (0.0-1.0); EOS # 0.1 10^3/uL (0.0-0.5); EOS % 1.3 % (0.0-3.0); HEMATOCRIT 36.4 % (42.0-52.0); HEMOGLOBIN 11.8 g/dl (13.5-17.5); LYMPH # 0.5 10^3/uL (1.5-5.0); LYMPH % 12.7 % (24.0-44.0); MEAN CORPUSCULAR HGB CONC 32.4 g/dl (32.0-36.5); MEAN CORPUSCULAR VOLUME 86.3 fl (80.0-96.0); MONO # 0.4 10^3/uL (0.0-0.8); MONO % 9.9 % (2.0-8.0); NEUTROPHILS % 75.3 % (36.0-66.0); PLATELET COUNT, AUTOMATED 146 10^3/uL (150-450); RED BLOOD COUNT 4.22 10^6/uL (4.30-6.10); WHITE BLOOD COUNT 3.9 10^3/uL (4.0-10.0)
[2022-05-29 17:55] LABS: INR 1.01; PROTHROMBIN TIME 13.5 SECONDS (12.5-14.5)
[2022-05-29] MEDS ORDERED: ACETAMINOPHEN TAB 650MG DOSE (2X325MG) PO ONE (17:55)
[2022-05-29 17:56] LABS: PARTIAL THROMBOPLASTIN TIME 43.8 SECONDS (24.8-34.2)
[2022-05-29 18:06] LABS: ALBUMIN 3.3 G/DL (3.2-5.2); ALKALINE PHOSPHATASE 94 U/L (46-116); ALT/SGPT 54 U/L (7.0-40); AST/SGOT 39 U/L (<34); BILIRUBIN,DIRECT < 0.1 MG/DL (<0.4); BILIRUBIN,TOTAL 0.3 MG/DL (0.3-1.2); BLOOD UREA NITROGEN 16 MG/DL (9-23); CARBON DIOXIDE LEVEL 28 MMOL/L (20-31); CHLORIDE LEVEL 104 MMOL/L (98-107); CK-MB VALUE MASS 1.1 NG/ML (<3.6); CPK CREATINE PHOSPHOKINASE 46 U/L (46-171); CREATININE FOR GFR 0.75 MG/DL (0.70-1.30); FREE T4 0.99 NG/DL (0.89-1.76); GLOMERULAR FILTRATION RATE > 60.0 (>42); GLUCOSE, FASTING 168 MG/DL (74-106); LIPASE 56 U/L (12-53); MB/CK RELATIVE INDEX 2.39 (< OR =4); POTASSIUM SERUM 4.2 MMOL/L (3.5-5.1); PROSTATIC SPECIFIC AG MONITOR 0.04 NG/ML (< 4.00); SODIUM LEVEL 140 MMOL/L (136-145); THYROID STIMULATING HORMONE 1.643 uIU/ML (0.55-4.78); TOTAL PROTEIN 6.2 G/DL (5.7-8.2)
[2022-05-29 19:10] LABS: CK-MB VALUE MASS < 1.0 NG/ML (<3.6); CPK CREATINE PHOSPHOKINASE 42 U/L (46-171); MB/CK RELATIVE INDEX 2.38 (< OR =4)
[2022-05-29 21:10] LABS: CPK CREATINE PHOSPHOKINASE 33 U/L (46-171)
[2022-05-29 21:24] LABS: CK-MB VALUE MASS < 1.0 NG/ML (<3.6); MB/CK RELATIVE INDEX 3.03 (< OR =4)
[2022-05-29] MEDS ORDERED: ACET650T15 PO (22:25)
[2022-05-29] MEDS ORDERED: HOME MED LIST COMPLETE! XX SCH (22:25)
[2022-05-29] MEDS ORDERED: QUET1TAB17 PO (22:25)
[2022-05-29] MEDS ORDERED: DULO30CA9 PO (22:25)
[2022-05-29] MEDS ORDERED: ZOLP5TAB PO (22:25)
[2022-05-29] MEDS ORDERED: SERT50TA29 PO (22:25)
[2022-05-29] MEDS ORDERED: amLODIPine 5 MG TAB PO ONE (22:30)
[2022-05-29] MEDS ORDERED: IBUPROFEN 600MG TAB PO PRN (22:30)
[2022-05-29] MEDS ORDERED: zolPIDEM TARTRATE 5 MG TAB PO PRN (22:30)
[2022-05-29] MEDS ORDERED: ACETAMINOPHEN TAB 650MG DOSE (2X325MG) PO PRN (22:30)
[2022-05-29] MEDS ORDERED: GLUCOSE 4GM CHEW TABLET PO PRN (22:40)
[2022-05-29] MEDS ORDERED: DEXTROSE 50% 50 ML SYRINGE IV PRN (22:40)
[2022-05-29] MEDS ORDERED: GLUCAGON INJ 1MG VIAL SC PRN (22:40)
[2022-05-29 23:03] VITALS: BP 194/86
[2022-05-29 23:05] LABS: RSV AMPLIFICATION NEGATIVE (NEGATIVE)
[2022-05-30] MEDS ORDERED: ISOVUE-370 76% 100ML VIAL As Ordered ONE (07:23)
[2022-05-30] MEDS: INSULIN LISPRO (NovoLOG) PER UNIT SC SCH ×2 (07:30→12:50)
[2022-05-30 07:48] LABS: INR 1.01; PROTHROMBIN TIME 13.5 SECONDS (12.5-14.5)
[2022-05-30 07:49] LABS: PARTIAL THROMBOPLASTIN TIME 49.4 SECONDS (24.8-34.2)
[2022-05-30 08:58] LABS: CK-MB VALUE MASS 1.1 NG/ML (<3.6); MB/CK RELATIVE INDEX 2.55 (< OR =4)
[2022-05-30] MEDS ORDERED: ENOXAPARIN 40MG/0.4ML SYRINGE (J1650 PER 10MG) SC SCH (09:00)
[2022-05-30] MEDS ORDERED: POTASSIUM CHLORIDE 10MEQ SR TABLET PO SCH (09:00)
[2022-05-30] MEDS ORDERED: EZETIMIBE 10MG TABLET (ZETIA) PO SCH (09:00)
[2022-05-30] MEDS ORDERED: amLODIPine 5 MG TAB PO SCH (09:00)
[2022-05-30] MEDS ORDERED: DONEPEZIL 5 MG TAB PO SCH (09:00)
[2022-05-30] MEDS ORDERED: lisinopriL 40MG TAB PO SCH (09:00)
[2022-05-30] MEDS ORDERED: LEVEMIR (INSULIN DETEMIR) 1 UNITS/0.01ML SC SCH (09:00)
[2022-05-30] MEDS ORDERED: busPIRone 10 MG TAB PO SCH (09:00)
[2022-05-30] MEDS ORDERED: lisinopriL 5 MG TAB PO SCH (09:00)
[2022-05-30] MEDS ORDERED: CLOPIDOGREL 75 MG TAB PO SCH (09:00)
[2022-05-30] MEDS ORDERED: ELIQ5TAB PO (11:46)
[2022-05-30] MEDS ORDERED: AMLO1TAB25 PO (11:53)
[2022-05-30] MEDS ORDERED: LISI40TA4 PO (11:53)
[2022-05-30 12:17] VITALS: BP 184/81
[2022-05-30] MEDS ORDERED: hydrALAZINE 20MG/ML 1ML VIAL (J0360 PER 20MG) IV ONE (13:00)
[2022-05-30 13:04] VITALS: BP 162/70
[2022-05-30] MEDS ORDERED: APIXABAN 5 MG TAB (ELIQUIS) PO ONE (14:50)
[2022-05-30 16:00] VITALS: BP 168/72
[2022-05-30] MEDS ORDERED: INSULIN LISPRO (NovoLOG) PER UNIT SC SCH (21:00)
[2022-05-30] MEDS ORDERED: DULoxetine 30MG CAPSULE (CYMBALTA) PO SCH (21:00)
[2022-05-30] MEDS ORDERED: ROSUVASTATIN 10 MG TAB (CRESTOR) PO SCH (21:00)
[2022-05-30] MEDS ORDERED: ASPIRIN 81MG ENTERIC TABLET PO SCH (21:00)
[2022-05-30] MEDS ORDERED: SERTRALINE HCL 50 MG TAB PO SCH (21:00)
[2022-05-30] MEDS ORDERED: QUEtiapine FUMARATE 50MG TAB PO SCH (21:00)
== END 2022-05-30 17:17 | disposition home or self-care (01) ==
LOC: M ED 16:57 → M ED INP 16:58 → ENRESERV 05-30 11:17 → M PCU 05-30 11:57
PROVIDERS: ADMIT Family Medicine; ATTEND Family Medicine
DX: I26.99 Other pulmonary embolism without acute cor pulmonale (principal); I16.0 Hypertensive urgency; I25.10 Atherosclerotic heart disease of native coronary artery without angina pectoris; D61.818 Other pancytopenia; Z98.61 Coronary angioplasty status; Z95.1 Presence of aortocoronary bypass graft; Z86.73 Personal history of transient ischemic attack (TIA), and cerebral infarction without residual deficits; Z85.46 Personal history of malignant neoplasm of prostate; E78.5 Hyperlipidemia, unspecified; I10 Essential (primary) hypertension; E11.9 Type 2 diabetes mellitus without complications; K21.9 Gastro-esophageal reflux disease without esophagitis; Z79.4 Long term (current) use of insulin; Z79.899 Other long term (current) drug therapy; G47.33 Obstructive sleep apnea (adult) (pediatric); F03.90 Unspecified dementia, unspecified severity, without behavioral disturbance, psychotic disturbance, mood disturbance, and anxiety; F41.9 Anxiety disorder, unspecified; F32.A Depression, unspecified
CPT/HCPCS: 36415; 71046; 71275; 80048; 80076; 82550; 82553; 83690; 84153; 84439; 84443; 84484; 85025; 85610; 85730; 87631; 93005; 93041; 93970; 94760; 96372; 99285; G0378; J1650; J1815; Q9967

== ENCOUNTER → 2022-06-02 | Outpatient (CLI) | payer MEDICARE, OTHER ==
[~2022-06-02] MED LIST changes: +ELIQ5TAB PO; +LISI40TA4 PO; +QUET1TAB17 PO; +SERT50TA29 PO; +ZOLP5TAB PO
== END ==
LOC: M ONCR 09:26
PROVIDERS: ATTEND General Practice
DX: Z08 Encounter for follow-up examination after completed treatment for malignant neoplasm (principal); Z85.46 Personal history of malignant neoplasm of prostate; I10 Essential (primary) hypertension; I26.99 Other pulmonary embolism without acute cor pulmonale; Z79.01 Long term (current) use of anticoagulants; Z79.02 Long term (current) use of antithrombotics/antiplatelets; Z79.4 Long term (current) use of insulin; Z79.899 Other long term (current) drug therapy; Z87.891 Personal history of nicotine dependence; Z91.51 Personal history of suicidal behavior; Z92.23 Personal history of estrogen therapy; Z92.3 Personal history of irradiation

== ENCOUNTER → 2022-07-13 | Outpatient (CLI) | payer MEDICARE, OTHER ==
[~2022-07-13] MED LIST changes: -POTA10CA32 PO; +POTA10CA33 PO
[2022-07-13 15:21] LABS: HEMATOCRIT 38.1 % (42.0-52.0); HEMOGLOBIN 13.3 g/dl (13.5-17.5); MEAN CORPUSCULAR HEMOGLOBIN 32.5 pg (27.0-33.0); MEAN CORPUSCULAR HGB CONC 34.9 g/dl (32.0-36.5); MEAN CORPUSCULAR VOLUME 93.2 fl (80.0-96.0); PLATELET COUNT, AUTOMATED 164 10^3/uL (150-450); RED BLOOD COUNT 4.09 10^6/uL (4.30-6.10); WHITE BLOOD COUNT 4.4 10^3/uL (4.0-10.0)
[2022-07-13 15:29] LABS: ALBUMIN 3.6 G/DL (3.2-5.2); ALKALINE PHOSPHATASE 84 U/L (46-116); ALT/SGPT 51 U/L (7.0-40); AST/SGOT 29 U/L (<34); BILIRUBIN,TOTAL 0.3 MG/DL (0.3-1.2); BLOOD UREA NITROGEN 18 MG/DL (9-23); CALCIUM LEVEL 9.3 MG/DL (8.3-10.6); CARBON DIOXIDE LEVEL 31 MMOL/L (20-31); CHLORIDE LEVEL 106 MMOL/L (98-107); CHOLESTEROL LEVEL 169 MG/DL (<200); CHOLESTEROL RISK RATIO 3.45 (<5); CPK CREATINE PHOSPHOKINASE 36 U/L (46-171); CREATININE FOR GFR 0.93 MG/DL (0.70-1.30); GLOMERULAR FILTRATION RATE > 60.0 (>42); GLUCOSE, FASTING 91 MG/DL (74-106); HDL CHOLESTEROL 48.9 MG/DL (>40); LDL CHOLESTEROL 98.9 MG/DL (<100); NON-HDL-C 120 MG/DL; POTASSIUM SERUM 4.9 MMOL/L (3.5-5.1); SODIUM LEVEL 141 MMOL/L (136-145); TOTAL PROTEIN 6.6 G/DL (5.7-8.2); TRIGLYCERIDES LEVEL 106 MG/DL (<150)
[2022-07-13 16:09] LABS: HEMOGLOBIN A1c 6.2 % (4.0-6.0)
== END ==
LOC: M PLALAB 12:32
PROVIDERS: ATTEND Internal Medicine Hematology
DX: I10 Essential (primary) hypertension (principal); I25.10 Atherosclerotic heart disease of native coronary artery without angina pectoris; E11.40 Type 2 diabetes mellitus with diabetic neuropathy, unspecified; Z79.4 Long term (current) use of insulin; I26.93 Single subsegmental thrombotic pulmonary embolism without acute cor pulmonale; D50.9 Iron deficiency anemia, unspecified

== ENCOUNTER → 2022-10-13 | Outpatient (CLI) | payer MEDICARE, OTHER ==
[2022-10-13 13:11] LABS: PLATELET COUNT, AUTOMATED 155 10^3/uL (150-450)
[2022-10-13 13:23] LABS: INR 1.02; PROTHROMBIN TIME 13.6 SECONDS (12.5-14.5)
[2022-10-13 13:24] LABS: PARTIAL THROMBOPLASTIN TIME 46.3 SECONDS (24.8-34.2)
[2022-10-13 13:45] LABS: COLLAGEN EPINEPHRINE 166 SECONDS (74-162)
[2022-10-13 14:07] LABS: COLLAGEN ADP 98 SECONDS (56-103)
== END ==
LOC: M PLALAB 11:51
PROVIDERS: ATTEND Physician Assistant
DX: Z01.818 Encounter for other preprocedural examination (principal)

== ENCOUNTER → 2022-10-19 | Outpatient (CLI) | payer MEDICARE, OTHER | LOC: M PLALAB 12:17 | PROVIDERS: ATTEND Physician Assistant | DX: Z01.818 Encounter for other preprocedural examination (principal) ==

== ENCOUNTER → 2022-11-21 | Outpatient (CLI) | payer MEDICARE, OTHER | LOC: M RAD 12:32 | DX: M79.604 Pain in right leg (principal); M25.461 Effusion, right knee ==

== ENCOUNTER → 2022-11-22 | Outpatient (CLI) | payer MEDICARE, OTHER ==
[2022-11-22 15:02] LABS: BASO % 0.5 % (0.0-1.0); EOS # 0.1 10^3/uL (0.0-0.5); EOS % 2.1 % (0.0-3.0); HEMATOCRIT 40.5 % (42.0-52.0); HEMOGLOBIN 13.8 g/dl (13.5-17.5); LYMPH # 0.6 10^3/uL (1.5-5.0); LYMPH % 16.3 % (24.0-44.0); MEAN CORPUSCULAR HEMOGLOBIN 32.5 pg (27.0-33.0); MEAN CORPUSCULAR HGB CONC 34.1 g/dl (32.0-36.5); MEAN CORPUSCULAR VOLUME 95.5 fl (80.0-96.0); MONO # 0.3 10^3/uL (0.0-0.8); MONO % 8.7 % (2.0-8.0); NEUTROPHILS # 2.7 10^3/uL (1.5-8.5); NEUTROPHILS % 71.9 % (36.0-66.0); PLATELET COUNT, AUTOMATED 160 10^3/uL (150-450); RED BLOOD COUNT 4.24 10^6/uL (4.30-6.10); WHITE BLOOD COUNT 3.8 10^3/uL (4.0-10.0)
[2022-11-22 15:14] LABS: ERYTHROCYTE SEDIMENTATION RATE 15 mm/hr (0-20)
[2022-11-22 15:35] LABS: URIC ACID 4.5 MG/DL (3.7-9.2)
[2022-11-22 15:39] LABS: C REACTIVE PROTEIN QUANTITATIV < 0.40 MG/DL (<1.0)
[2022-11-22 15:40] LABS: RHEUMATOID FACTOR QUANT 5.7 IU/ML (<14)
== END ==
LOC: M PLALAB 11:09
PROVIDERS: ATTEND Physician Assistant
DX: M25.461 Effusion, right knee (principal)

== ENCOUNTER → 2022-11-30 | Outpatient (CLI) | payer MEDICARE, OTHER ==
[~2022-11-30] MED LIST changes: +OXYB10TA23 PO
== END ==
LOC: M PLALAB 09:29
PROVIDERS: ATTEND General Practice
DX: C61 Malignant neoplasm of prostate (principal)

== ENCOUNTER → 2022-12-01 | Outpatient (CLI) | payer MEDICARE, OTHER | LOC: M ONCR 10:14 | PROVIDERS: ATTEND General Practice | DX: Z08 Encounter for follow-up examination after completed treatment for malignant neoplasm (principal); Z85.46 Personal history of malignant neoplasm of prostate; N39.46 Mixed incontinence; F03.90 Unspecified dementia, unspecified severity, without behavioral disturbance, psychotic disturbance, mood disturbance, and anxiety; Z71.2 Person consulting for explanation of examination or test findings; Z79.01 Long term (current) use of anticoagulants; Z79.02 Long term (current) use of antithrombotics/antiplatelets; Z79.4 Long term (current) use of insulin; Z79.899 Other long term (current) drug therapy; Z87.891 Personal history of nicotine dependence; Z92.3 Personal history of irradiation ==

== ENCOUNTER → 2023-02-02 | Outpatient (CLI) | payer MEDICARE, OTHER ==
[~2023-02-02] MED LIST changes: +CYAN-1 PO; -CYAN100050 PO; -POTA10CA33 PO; +POTA10CA60 PO
[2023-02-02 15:02] LABS: BLOOD UREA NITROGEN 19 MG/DL (9-23); CREATININE FOR GFR 1.03 MG/DL (0.70-1.30); GLOMERULAR FILTRATION RATE > 60.0 (>42)
== END ==
LOC: M PLALAB 11:12
PROVIDERS: ATTEND Physical Medicine & Rehabilitation
DX: M47.896 Other spondylosis, lumbar region (principal)

== ENCOUNTER → 2023-02-08 | Outpatient (CLI) | payer MEDICARE, OTHER | LOC: M CARPUL 14:32 | PROVIDERS: ATTEND Internal Medicine Hematology | DX: I50.9 Heart failure, unspecified (principal); I08.3 Combined rheumatic disorders of mitral, aortic and tricuspid valves ==

== ENCOUNTER → 2023-03-16 | Outpatient (CLI) | payer MEDICARE, OTHER ==
[~2023-03-16] MED LIST changes: -COZA1TAB PO; +LOSA-527 PO
== END ==
LOC: M PLARAD 13:18
PROVIDERS: ATTEND Physical Medicine & Rehabilitation
DX: S83.241A Other tear of medial meniscus, current injury, right knee, initial encounter (principal); M25.561 Pain in right knee; M25.461 Effusion, right knee; Y93.9 Activity, unspecified; Y92.9 Unspecified place or not applicable

== ENCOUNTER → 2023-03-21 | Outpatient (CLI) | payer MEDICARE, OTHER | LOC: M RAD 10:15 | PROVIDERS: ATTEND Physical Medicine & Rehabilitation | DX: M51.16 Intervertebral disc disorders with radiculopathy, lumbar region (principal) | CPT/HCPCS: 78306; A9503 ==

== ENCOUNTER 2023-04-21 12:46 | Observation (INO) | payer MEDICARE, OTHER ==
[~2023-04-21] VITALS: Ht 177.8 cm; Wt 100.7 kg
[2023-04-21] MEDS ORDERED: ISOVUE-370 76% 100ML VIAL As Ordered ONE (13:52)
[2023-04-21 14:06] LABS: INR 1.17; PROTHROMBIN TIME 14.6 SECONDS (12.5-14.5)
[2023-04-21 14:08] LABS: PARTIAL THROMBOPLASTIN TIME 46.1 SECONDS (24.8-34.2)
[2023-04-21 14:11] LABS: BASO % 0.6 % (0.0-1.0); EOS # 0.1 10^3/uL (0.0-0.5); EOS % 1.9 % (0.0-3.0); HEMATOCRIT 34.5 % (42.0-52.0); HEMOGLOBIN 12.4 g/dl (13.5-17.5); LYMPH # 0.6 10^3/uL (1.5-5.0); LYMPH % 20.1 % (24.0-44.0); MEAN CORPUSCULAR HEMOGLOBIN 33.3 pg (27.0-33.0); MEAN CORPUSCULAR HGB CONC 35.9 g/dl (32.0-36.5); MEAN CORPUSCULAR VOLUME 92.7 fl (80.0-96.0); MONO # 0.4 10^3/uL (0.0-0.8); MONO % 12.7 % (2.0-8.0); NEUTROPHILS % 64.4 % (36.0-66.0); PLATELET COUNT, AUTOMATED 127 10^3/uL (150-450); RED BLOOD COUNT 3.72 10^6/uL (4.30-6.10); WHITE BLOOD COUNT 3.1 10^3/uL (4.0-10.0)
[2023-04-21 14:24] LABS: RSV AMPLIFICATION NEGATIVE (NEGATIVE)
[2023-04-21] MEDS ORDERED: MED REC IN PROGRESS XX SCH (17:15)
[2023-04-21] MEDS ORDERED: NS 1,000 ML IV ONE (17:35)
[2023-04-21] MEDS ORDERED: zolPIDEM TARTRATE 5 MG TAB PO PRN (17:40)
[2023-04-21] MEDS ORDERED: GLUCOSE 4GM CHEW TABLET PO PRN (17:45)
[2023-04-21] MEDS ORDERED: GLUCAGON INJ 1MG VIAL SC PRN (17:45)
[2023-04-21] MEDS ORDERED: DEXTROSE 50% 50ML SYRINGE IV PRN (17:45)
[2023-04-21] MEDS ORDERED: ENOXAPARIN 40MG/0.4ML SYRINGE (J1650 PER 10MG) SC ONE (18:00)
[2023-04-21] MEDS ORDERED: MED REC CURRENTLY UNOBTAINABLE XX SCH (19:45)
[2023-04-21] MEDS ORDERED: SERTRALINE HCL 50 MG TAB PO SCH (21:00)
[2023-04-21] MEDS ORDERED: DULoxetine 30MG CAPSULE (CYMBALTA) PO SCH (21:00)
[2023-04-21] MEDS ORDERED: ROSUVASTATIN 10 MG TAB (CRESTOR) PO SCH (21:00)
[2023-04-21] MEDS ORDERED: INSULIN LISPRO (NovoLOG) PER UNIT SC SCH (21:00)
[2023-04-21] MEDS ORDERED: APIXABAN 5 MG TAB (ELIQUIS) PO SCH (21:00)
[2023-04-21] MEDS ORDERED: TIZA10TA PO (21:27)
[2023-04-21] MEDS ORDERED: ESOM20CA25 PO (21:27)
[2023-04-21] MEDS ORDERED: MEMA10TA19 PO (21:27)
[2023-04-21] MEDS ORDERED: LOSA100T46 PO (21:27)
[2023-04-21] MEDS ORDERED: OXYB15TA14 PO (21:27)
[2023-04-21] MEDS ORDERED: AMLO1TAB24 PO (21:27)
[2023-04-21] MEDS ORDERED: QUET100T2 PO (21:27)
[2023-04-21 21:30] VITALS: BP 158/75; TEMP 97.5; O2SAT 97
[2023-04-21 21:31] VITALS: BP 157/73
[2023-04-21] MEDS ORDERED: JARD1TAB3 PO (21:31)
[2023-04-21] MEDS ORDERED: ASPI81TA26 PO (21:31)
[2023-04-21] MEDS ORDERED: NESI25TA PO (21:31)
[2023-04-21] MEDS ORDERED: QUET50TA4 PO (21:31)
[2023-04-21 21:32] VITALS: BP 131/69
[2023-04-21] MEDS ORDERED: FURO20TA2 PO (21:33)
[2023-04-21] MEDS ORDERED: HOME MED LIST COMPLETE! XX SCH (21:35)
[2023-04-21] MEDS: MULTIVITAMINS/MINERALS THERAP 1 TAB PO SCH (22:51)
[2023-04-21] MEDS: busPIRone 10 MG TAB PO SCH (22:51)
[2023-04-21] MEDS: VITAMIN D 1,000 INTERNATIONAL UNITS TABLET PO SCH (22:52)
[2023-04-22 05:30] VITALS: BP 134/70; TEMP 97.9; O2SAT 93
[2023-04-22 05:31] VITALS: BP 132/72
[2023-04-22 05:32] VITALS: BP 131/69
[2023-04-22 06:01] LABS: BASO % 0.5 % (0.0-1.0); EOS # 0.1 10^3/uL (0.0-0.5); EOS % 2.4 % (0.0-3.0); HEMATOCRIT 35.8 % (42.0-52.0); HEMOGLOBIN 12.5 g/dl (13.5-17.5); LYMPH # 0.8 10^3/uL (1.5-5.0); LYMPH % 20.5 % (24.0-44.0); MEAN CORPUSCULAR HEMOGLOBIN 31.5 pg (27.0-33.0); MEAN CORPUSCULAR HGB CONC 34.9 g/dl (32.0-36.5); MEAN CORPUSCULAR VOLUME 90.2 fl (80.0-96.0); MONO # 0.5 10^3/uL (0.0-0.8); NEUTROPHILS # 2.4 10^3/uL (1.5-8.5); NEUTROPHILS % 64.3 % (36.0-66.0); PLATELET COUNT, AUTOMATED 126 10^3/uL (150-450); RED BLOOD COUNT 3.97 10^6/uL (4.30-6.10); WHITE BLOOD COUNT 3.8 10^3/uL (4.0-10.0)
[2023-04-22] MEDS ORDERED: INSULIN LISPRO (NovoLOG) PER UNIT SC SCH (07:30)
[2023-04-22 07:37] VITALS: BP_SYST 132; BP_SYST 135; BP_SYST 136; BP_DIAS 63; BP_DIAS 64
[2023-04-22] MEDS ORDERED: SELF1KIT MC (07:42)
[2023-04-22 07:55] LABS: C REACTIVE PROTEIN QUANTITATIV 2.97 MG/L (1.00-3.00)
[2023-04-22 07:56] LABS: CHOLESTEROL RISK RATIO 3.289 (<5)
[2023-04-22 07:58] LABS: CPK CREATINE PHOSPHOKINASE 29 U/L (30-170)
[2023-04-22] MEDS: busPIRone 10 MG TAB PO SCH (08:17)
[2023-04-22] MEDS: MULTIVITAMINS/MINERALS THERAP 1 TAB PO SCH (08:17)
[2023-04-22] MEDS: VITAMIN D 1,000 INTERNATIONAL UNITS TABLET PO SCH (08:17)
[2023-04-22 08:36] LABS: MAGNESIUM LEVEL 1.8 MG/DL (1.7-2.2)
[2023-04-22 08:37] LABS: FREE T4 0.85 NG/DL (0.93-1.70); THYROID STIMULATING HORMONE 3.21 UIU/ML (0.47-5.01)
[2023-04-22] MEDS ORDERED: CLOPIDOGREL 75 MG TAB PO SCH (09:00)
[2023-04-22] MEDS ORDERED: CYANOCOBALAMIN 500 MCG TAB PO SCH (09:00)
[2023-04-22] MEDS ORDERED: oxyBUTYnin *DITROPAN XL* 5 MG TABCR PO SCH ×2 (09:00)
[2023-04-22] MEDS ORDERED: ENOXAPARIN 40MG/0.4ML SYRINGE (J1650 PER 10MG) SC SCH (09:00)
[2023-04-22] MEDS ORDERED: DONEPEZIL 5 MG TAB PO SCH (09:00)
[2023-04-22] MEDS ORDERED: EZETIMIBE 10MG TABLET (ZETIA) PO SCH (09:00)
[2023-04-22 13:08] LABS: BLOOD UREA NITROGEN 19 MG/DL (7-21); CALCIUM LEVEL 9.1 MG/DL (8.8-10.2); CARBON DIOXIDE LEVEL 24 MEQ/L (22-30); CHLORIDE LEVEL 107 MEQ/L (98-107); CPK CREATINE PHOSPHOKINASE 31 U/L (30-170); GLOMERULAR FILTRATION RATE > 60.0 (>42); GLUCOSE, FASTING 69 MG/DL; MAGNESIUM LEVEL 1.9 MG/DL (1.7-2.2); POTASSIUM SERUM 4.4 MEQ/L (3.6-5.0); SODIUM LEVEL 142 MEQ/L (134-153)
[2023-04-24 13:02] LABS: CK-MB VALUE MASS 1.4 NG/ML (0.0-10.4); MB/CK RELATIVE INDEX 4.82 (< OR =4)
[2023-04-26 07:21] LABS: PROCALCITONIN 0.08 NG/ML (0.0-0.08)
== END 2023-04-22 12:04 | disposition home or self-care (01) ==
LOC: M ED 12:46 → M ED INP 12:47 → ENRESERV 20:04 → M MSPAV 21:15
PROVIDERS: ADMIT General Practice; ATTEND General Practice
DX: I95.1 Orthostatic hypotension (principal); I25.10 Atherosclerotic heart disease of native coronary artery without angina pectoris; I10 Essential (primary) hypertension; Z98.61 Coronary angioplasty status; E11.40 Type 2 diabetes mellitus with diabetic neuropathy, unspecified; Z79.01 Long term (current) use of anticoagulants; I25.3 Aneurysm of heart; E86.1 Hypovolemia; R55 Syncope and collapse; R00.1 Bradycardia, unspecified; D61.818 Other pancytopenia; D51.9 Vitamin B12 deficiency anemia, unspecified; G31.9 Degenerative disease of nervous system, unspecified; Z79.4 Long term (current) use of insulin; Z79.899 Other long term (current) drug therapy; Z87.891 Personal history of nicotine dependence; Z85.46 Personal history of malignant neoplasm of prostate; E78.5 Hyperlipidemia, unspecified; K21.9 Gastro-esophageal reflux disease without esophagitis; Z92.3 Personal history of irradiation; G47.33 Obstructive sleep apnea (adult) (pediatric); Z86.16 Personal history of COVID-19; F03.90 Unspecified dementia, unspecified severity, without behavioral disturbance, psychotic disturbance, mood disturbance, and anxiety
CPT/HCPCS: 36415; 70450; 71045; 71275; 80047; 80061; 81001; 82550; 82553; 83036; 83605; 83735; 84145; 84439; 84443; 84484; 85025; 85610; 85652; 85730; 86140; 87040; 87631; 93005; 93041; 94760; 96374; 99285; G0378; Q9967

== ENCOUNTER 2023-04-25 10:50 | Inpatient (IN) | payer MEDICARE, OTHER ==
[~2023-04-25] VITALS: Ht 177.8 cm; Wt 97.9 kg
[~2023-04-25 10:50] MED LIST changes: +AMLO1TAB24 PO; +ESOM20CA25 PO; +FURO20TA2 PO; +JARD1TAB3 PO; +LOSA100T46 PO; +MEMA10TA19 PO; +NESI25TA PO; +OXYB15TA14 PO; +QUET100T2 PO; +QUET50TA4 PO; +SELF1KIT MC; +TIZA10TA PO
[2023-04-25 11:53] LABS: BASO % 0.1 % (0.0-1.0); HEMATOCRIT 40.4 % (42.0-52.0); HEMOGLOBIN 13.7 g/dl (13.5-17.5); LYMPH # 0.2 10^3/uL (1.5-5.0); LYMPH % 1.3 % (24.0-44.0); MEAN CORPUSCULAR HEMOGLOBIN 30.9 pg (27.0-33.0); MEAN CORPUSCULAR HGB CONC 33.9 g/dl (32.0-36.5); MONO # 0.7 10^3/uL (0.0-0.8); MONO % 4.6 % (2.0-8.0); NEUTROPHILS # 14.9 10^3/uL (1.5-8.5); NEUTROPHILS % 93.6 % (36.0-66.0); PLATELET COUNT, AUTOMATED 140 10^3/uL (150-450); RED BLOOD COUNT 4.44 10^6/uL (4.30-6.10); WHITE BLOOD COUNT 15.9 10^3/uL (4.0-10.0)
[2023-04-25 12:17] LABS: CK-MB VALUE MASS < 1.0 NG/ML (<3.6)
[2023-04-25 12:20] LABS: ALBUMIN 3.5 G/DL (3.2-5.2); ALKALINE PHOSPHATASE 99 U/L (46-116); ALT/SGPT 63 U/L (7.0-40); AST/SGOT 37 U/L (<34); BILIRUBIN,DIRECT 0.2 MG/DL (<0.4); BILIRUBIN,TOTAL 0.5 MG/DL (0.3-1.2); BLOOD UREA NITROGEN 20 MG/DL (9-23); CALCIUM LEVEL 8.7 MG/DL (8.3-10.6); CARBON DIOXIDE LEVEL 29 MMOL/L (20-31); CHLORIDE LEVEL 107 MMOL/L (98-107); CREATININE FOR GFR 1.27 MG/DL (0.70-1.30); GLOMERULAR FILTRATION RATE 58.2 (>42); GLUCOSE, FASTING 193 MG/DL (74-106); POTASSIUM SERUM 4.1 MMOL/L (3.5-5.1); SODIUM LEVEL 145 MMOL/L (136-145); TOTAL PROTEIN 6.5 G/DL (5.7-8.2)
[2023-04-25 12:21] LABS: RSV AMPLIFICATION NEGATIVE (NEGATIVE)
[2023-04-25 12:22] LABS: THYROID STIMULATING HORMONE 2.131 uIU/ML (0.55-4.78)
[2023-04-25 12:24] LABS: CPK CREATINE PHOSPHOKINASE 35 U/L (46-171); MB/CK RELATIVE INDEX 2.85 (< OR =4)
[2023-04-25] MEDS ORDERED: ISOVUE-370 76% 100ML VIAL As Ordered ONE (13:25)
[2023-04-25] MEDS ORDERED: cefTRIAXone SOD 2 GM in D5W MINI-BAG PLUS 50 ML IV ONE (14:20)
[2023-04-25] MEDS ORDERED: HOME MED LIST COMPLETE! XX SCH (16:30)
[2023-04-25] MEDS ORDERED: NS 1,000 ML IV ONE (17:40)
[2023-04-25] MEDS ORDERED: GLUCOSE 4GM CHEW TABLET PO PRN (17:45)
[2023-04-25] MEDS ORDERED: GLUCAGON INJ 1MG VIAL SC PRN (17:45)
[2023-04-25] MEDS ORDERED: DEXTROSE 50% 50ML SYRINGE IV PRN (17:45)
[2023-04-25 18:35] VITALS: BP 134/90; TEMP 97.9; O2SAT 97
[2023-04-25 20:10] VITALS: BP 139/87; TEMP 98.1; O2SAT 94
[2023-04-25] MEDS: PIPERACILLIN/TAZOBACTAM SOD 3.375 GM in D5W MINI-BAG PLUS 50 ML IV SCH (20:35)
[2023-04-25] MEDS: QUEtiapine FUMARATE 100 MG TAB PO SCH (20:36)
[2023-04-25] MEDS: SERTRALINE HCL 50 MG TAB PO SCH (20:37)
[2023-04-25] MEDS: ASPIRIN 81MG ENTERIC TABLET PO SCH (20:37)
[2023-04-25] MEDS: ROSUVASTATIN 10 MG TAB (CRESTOR) PO SCH (20:37)
[2023-04-25] MEDS: GABAPENTIN 300 MG CAP PO SCH (20:37)
[2023-04-25] MEDS: POTASSIUM CHLORIDE 10MEQ SR TABLET PO SCH (20:37)
[2023-04-25] MEDS: busPIRone 10 MG TAB PO SCH (20:37)
[2023-04-25] MEDS: OMEPRAZOLE 20MG CAP PO SCH (20:38)
[2023-04-25] MEDS ORDERED: LEVEMIR (INSULIN DETEMIR) 1 UNITS/0.01ML SC SCH (21:00)
[2023-04-26] MEDS: PIPERACILLIN/TAZOBACTAM SOD 3.375 GM in D5W MINI-BAG PLUS 50 ML IV SCH ×4 (02:25→20:14)
[2023-04-26 05:28] VITALS: BP 126/57; TEMP 98.4; O2SAT 93
[2023-04-26 05:47] LABS: BASO % 0.2 % (0.0-1.0); EOS # 0.1 10^3/uL (0.0-0.5); EOS % 0.7 % (0.0-3.0); HEMATOCRIT 33.8 % (42.0-52.0); LYMPH # 0.9 10^3/uL (1.5-5.0); LYMPH % 9.3 % (24.0-44.0); MEAN CORPUSCULAR HEMOGLOBIN 30.9 pg (27.0-33.0); MEAN CORPUSCULAR HGB CONC 33.4 g/dl (32.0-36.5); MEAN CORPUSCULAR VOLUME 92.3 fl (80.0-96.0); MONO # 0.6 10^3/uL (0.0-0.8); NEUTROPHILS # 8.4 10^3/uL (1.5-8.5); NEUTROPHILS % 83.4 % (36.0-66.0); PLATELET COUNT, AUTOMATED 113 10^3/uL (150-450); RED BLOOD COUNT 3.66 10^6/uL (4.30-6.10); WHITE BLOOD COUNT 10.1 10^3/uL (4.0-10.0)
[2023-04-26 05:49] LABS: HEMOGLOBIN 11.3 g/dl (13.5-17.5)
[2023-04-26 06:08] LABS: CALCIUM LEVEL 8.3 MG/DL (8.3-10.6); CREATININE FOR GFR 1.35 MG/DL (0.70-1.30); GLOMERULAR FILTRATION RATE 54.3 (>42)
[2023-04-26] MEDS ORDERED: NS 1,000 ML IV ONE (07:20)
[2023-04-26] MEDS: busPIRone 10 MG TAB PO SCH ×2 (08:38→20:15)
[2023-04-26] MEDS: DULoxetine 30MG CAPSULE (CYMBALTA) PO SCH (08:38)
[2023-04-26] MEDS: oxyBUTYnin *DITROPAN XL* 5 MG TABCR PO SCH (08:38)
[2023-04-26] MEDS: QUEtiapine FUMARATE 50MG TAB PO SCH (08:39)
[2023-04-26] MEDS: GABAPENTIN 300 MG CAP PO SCH ×3 (08:39→20:15)
[2023-04-26] MEDS: OMEPRAZOLE 20MG CAP PO SCH ×2 (08:39→20:15)
[2023-04-26] MEDS: POTASSIUM CHLORIDE 10MEQ SR TABLET PO SCH ×2 (08:39→20:15)
[2023-04-26] MEDS: CLOPIDOGREL 75 MG TAB PO SCH (08:39)
[2023-04-26 14:00] VITALS: BP 125/54; TEMP 98.1; O2SAT 93
[2023-04-26 14:45] LABS: PROCALCITONIN 0.35 ng/ml
[2023-04-26] MEDS: SERTRALINE HCL 50 MG TAB PO SCH (20:15)
[2023-04-26] MEDS: ROSUVASTATIN 10 MG TAB (CRESTOR) PO SCH (20:15)
[2023-04-26] MEDS: QUEtiapine FUMARATE 100 MG TAB PO SCH (20:15)
[2023-04-26] MEDS: ASPIRIN 81MG ENTERIC TABLET PO SCH (20:15)
[2023-04-26] MEDS ORDERED: LEVEMIR (INSULIN DETEMIR) 1 UNITS/0.01ML SC SCH (21:00)
[2023-04-26 21:10] VITALS: BP 140/62; TEMP 98.1; O2SAT 92
[2023-04-27] MEDS: PIPERACILLIN/TAZOBACTAM SOD 3.375 GM in D5W MINI-BAG PLUS 50 ML IV SCH ×3 (02:56→14:00)
[2023-04-27 06:00] VITALS: BP 125/52; TEMP 97.9; O2SAT 94
[2023-04-27 06:55] LABS: BASO % 0.3 % (0.0-1.0); EOS # 0.2 10^3/uL (0.0-0.5); EOS % 3.4 % (0.0-3.0); HEMATOCRIT 33.7 % (42.0-52.0); HEMOGLOBIN 11.4 g/dl (13.5-17.5); LYMPH # 0.8 10^3/uL (1.5-5.0); LYMPH % 12.4 % (24.0-44.0); MEAN CORPUSCULAR HEMOGLOBIN 31.5 pg (27.0-33.0); MEAN CORPUSCULAR HGB CONC 33.8 g/dl (32.0-36.5); MEAN CORPUSCULAR VOLUME 93.1 fl (80.0-96.0); MONO # 0.5 10^3/uL (0.0-0.8); MONO % 8.6 % (2.0-8.0); NEUTROPHILS # 4.6 10^3/uL (1.5-8.5); NEUTROPHILS % 74.8 % (36.0-66.0); PLATELET COUNT, AUTOMATED 121 10^3/uL (150-450); RED BLOOD COUNT 3.62 10^6/uL (4.30-6.10); WHITE BLOOD COUNT 6.1 10^3/uL (4.0-10.0)
[2023-04-27 07:21] LABS: ALBUMIN 2.7 G/DL (3.2-5.2); ALKALINE PHOSPHATASE 70 U/L (46-116); ALT/SGPT 41 U/L (7.0-40); AST/SGOT 27 U/L (<34); BILIRUBIN,DIRECT 0.2 MG/DL (<0.4); BILIRUBIN,TOTAL 0.6 MG/DL (0.3-1.2); BLOOD UREA NITROGEN 17 MG/DL (9-23); CALCIUM LEVEL 8.6 MG/DL (8.3-10.6); CARBON DIOXIDE LEVEL 28 MMOL/L (20-31); CHLORIDE LEVEL 110 MMOL/L (98-107); CREATININE FOR GFR 1.16 MG/DL (0.70-1.30); GLOMERULAR FILTRATION RATE > 60.0 (>42); GLUCOSE, FASTING 89 MG/DL (74-106); POTASSIUM SERUM 4.3 MMOL/L (3.5-5.1); SODIUM LEVEL 142 MMOL/L (136-145); TOTAL PROTEIN 5.3 G/DL (5.7-8.2)
[2023-04-27] MEDS: CLOPIDOGREL 75 MG TAB PO SCH (09:02)
[2023-04-27] MEDS: OMEPRAZOLE 20MG CAP PO SCH (09:02)
[2023-04-27] MEDS: POTASSIUM CHLORIDE 10MEQ SR TABLET PO SCH (09:03)
[2023-04-27] MEDS: GABAPENTIN 300 MG CAP PO SCH ×2 (09:03→15:00)
[2023-04-27] MEDS: DULoxetine 30MG CAPSULE (CYMBALTA) PO SCH (09:03)
[2023-04-27] MEDS: QUEtiapine FUMARATE 50MG TAB PO SCH (09:03)
[2023-04-27] MEDS: oxyBUTYnin *DITROPAN XL* 5 MG TABCR PO SCH (09:04)
[2023-04-27] MEDS: busPIRone 10 MG TAB PO SCH (09:06)
[2023-04-27 13:35] VITALS: BP 135/74; TEMP 98.6; O2SAT 98
[2023-04-27] MEDS ORDERED: CEFD300C42 PO (13:47)
[2023-04-27] MEDS ORDERED: DOXY100C3 PO (13:47)
[2023-04-27] MEDS ORDERED: PROBCAP14 PO (13:48)
[2023-04-27] MEDS ORDERED: LANTINJ4 SC (14:13)
== END 2023-04-27 15:12 | disposition home health service (06) | DRG 194 ==
LOC: M ED 12:23 → M ED INP 17:37 → M MSPAV 18:42
PROVIDERS: ADMIT Internal Medicine Nephrology; ATTEND Internal Medicine Nephrology
DX: J18.9 Pneumonia, unspecified organism (principal); N17.9 Acute kidney failure, unspecified; E87.20 Acidosis, unspecified; B96.20 Unspecified Escherichia coli [E. coli] as the cause of diseases classified elsewhere; F03.90 Unspecified dementia, unspecified severity, without behavioral disturbance, psychotic disturbance, mood disturbance, and anxiety; F43.10 Post-traumatic stress disorder, unspecified; F32.A Depression, unspecified; Z77.098 Contact with and (suspected) exposure to other hazardous, chiefly nonmedicinal, chemicals; I25.10 Atherosclerotic heart disease of native coronary artery without angina pectoris; I48.91 Unspecified atrial fibrillation; I35.0 Nonrheumatic aortic (valve) stenosis; E11.42 Type 2 diabetes mellitus with diabetic polyneuropathy; G47.33 Obstructive sleep apnea (adult) (pediatric); D69.6 Thrombocytopenia, unspecified; E86.0 Dehydration; I10 Essential (primary) hypertension; I95.1 Orthostatic hypotension; N40.1 Benign prostatic hyperplasia with lower urinary tract symptoms; K21.9 Gastro-esophageal reflux disease without esophagitis; R26.89 Other abnormalities of gait and mobility; E66.9 Obesity, unspecified; I27.20 Pulmonary hypertension, unspecified; E78.5 Hyperlipidemia, unspecified; R29.6 Repeated falls; S01.312A Laceration without foreign body of left ear, initial encounter; Z95.5 Presence of coronary angioplasty implant and graft; W18.12XA Fall from or off toilet with subsequent striking against object, initial encounter; Y92.009 Unspecified place in unspecified non-institutional (private) residence as the place of occurrence of the external cause; Z79.82 Long term (current) use of aspirin; Z79.4 Long term (current) use of insulin; Z79.899 Other long term (current) drug therapy; Z86.73 Personal history of transient ischemic attack (TIA), and cerebral infarction without residual deficits; Z86.16 Personal history of COVID-19; Z85.46 Personal history of malignant neoplasm of prostate; Z90.49 Acquired absence of other specified parts of digestive tract; Z92.3 Personal history of irradiation; Z90.79 Acquired absence of other genital organ(s); M47.9 Spondylosis, unspecified

== ENCOUNTER → 2023-05-04 | Outpatient (CLI) | payer MEDICARE, OTHER ==
[~2023-05-04] MED LIST changes: +CEFD300C42 PO; +DOXY100C3 PO; +PROBCAP14 PO
== END ==
LOC: M PLALAB 13:42
PROVIDERS: ATTEND Internal Medicine Hematology
DX: Z01.818 Encounter for other preprocedural examination (principal); I25.10 Atherosclerotic heart disease of native coronary artery without angina pectoris; J18.9 Pneumonia, unspecified organism; I10 Essential (primary) hypertension

== ENCOUNTER → 2023-08-01 | Outpatient (CLI) | payer MEDICARE, OTHER ==
[~2023-08-01] MED LIST changes: +CEFD1CAP9 PO; -CEFD300C42 PO
[2023-08-01 14:01] LABS: HEMATOCRIT 37.2 % (42.0-52.0); HEMOGLOBIN 12.5 g/dl (13.5-17.5); MEAN CORPUSCULAR HEMOGLOBIN 31.4 pg (27.0-33.0); MEAN CORPUSCULAR HGB CONC 33.6 g/dl (32.0-36.5); MEAN CORPUSCULAR VOLUME 93.5 fl (80.0-96.0); PLATELET COUNT, AUTOMATED 151 10^3/uL (150-450); RED BLOOD COUNT 3.98 10^6/uL (4.30-6.10); WHITE BLOOD COUNT 4.1 10^3/uL (4.0-10.0)
[2023-08-01 14:19] LABS: HEMOGLOBIN A1c 6.7 % (4.0-6.0)
[2023-08-01 14:35] LABS: C REACTIVE PROTEIN QUANTITATIV < 0.40 MG/DL (<1.0); CREATININE, URINE 97.4 MG/DL; MAU/CREAT RATIO 72.8 MCG/MG (0.0-30.0)
[2023-08-01 14:36] LABS: IRON (FE) 60 UG/DL (65-175)
[2023-08-01 14:37] LABS: ALBUMIN 3.1 G/DL (3.2-5.2); ALKALINE PHOSPHATASE 116 U/L (46-116); ALT/SGPT 112 U/L (7.0-40); AST/SGOT 64 U/L (<34); BILIRUBIN,TOTAL 0.4 MG/DL (0.3-1.2); BLOOD UREA NITROGEN 17 MG/DL (9-23); CALCIUM LEVEL 9.2 MG/DL (8.3-10.6); CARBON DIOXIDE LEVEL 30 MMOL/L (20-31); CHLORIDE LEVEL 111 MMOL/L (98-107); CHOLESTEROL LEVEL 162 MG/DL (<200); CHOLESTEROL RISK RATIO 4.27 (<5); GLOMERULAR FILTRATION RATE > 60.0 (>42); GLUCOSE, FASTING 112 MG/DL (74-106); HDL CHOLESTEROL 37.9 MG/DL (>40); LDL CHOLESTEROL 95.5 MG/DL (<100); NON-HDL-C 124.1 MG/DL; POTASSIUM SERUM 4.2 MMOL/L (3.5-5.1); SODIUM LEVEL 142 MMOL/L (136-145); TOTAL PROTEIN 6.2 G/DL (5.7-8.2); TRIGLYCERIDES LEVEL 143 MG/DL (<150)
[2023-08-01 14:38] LABS: THYROID STIMULATING HORMONE 2.191 uIU/ML (0.55-4.78); TOTAL 25(OH) VITAMIN D 35.3 NG/ML (20.0-100.0); VITAMIN B12 LEVEL 1113 PG/ML (211-911)
== END ==
LOC: M PLALAB 09:53
PROVIDERS: ATTEND Internal Medicine Hematology
DX: D50.9 Iron deficiency anemia, unspecified (principal); Z79.4 Long term (current) use of insulin; I10 Essential (primary) hypertension; E78.2 Mixed hyperlipidemia; I25.10 Atherosclerotic heart disease of native coronary artery without angina pectoris; E11.40 Type 2 diabetes mellitus with diabetic neuropathy, unspecified

== ENCOUNTER 2023-08-11 10:25 | Outpatient (CLI) | payer MEDICARE, OTHER ==
[~2023-08-11] VITALS: Ht 177.8 cm; Wt 101.0 kg
[2023-08-11 10:25] VITALS: BP 113/59; O2SAT 97
[~2023-08-11 10:25] MED LIST changes: +ALBUTEROL SULFATE 2.5MG/0.5ML INH NEB SOLN INH PRN; +EPINEPHrine INJ 1 MG/ML 1ML AMP IM PRN; +NS 1,000 ML IV SCH; +diphenhydrAMINE 50MG/ML VIAL IV PRN; +methylPREDNISolone 125MG 2ML VIAL IV PRN
[2023-08-11] MEDS: IRON SUCROSE 200 MG in NS 100 ML OVER 1 HR IV ONE (10:52)
[2023-08-11 12:05] VITALS: BP 129/88; O2SAT 94
== END 2023-08-11 12:05 ==
LOC: M INFU 10:25
PROVIDERS: ATTEND Internal Medicine Hematology
DX: D50.9 Iron deficiency anemia, unspecified (principal)
CPT/HCPCS: 96365; J1756

== ENCOUNTER 2023-08-25 11:45 | Outpatient (CLI) | payer MEDICARE, OTHER ==
[~2023-08-25] VITALS: Ht 177.8 cm; Wt 100.0 kg
[2023-08-25 11:45] VITALS: BP 159/72; O2SAT 98
[~2023-08-25 11:45] MED LIST changes: +IRON SUCROSE 200 MG in NS 100 ML OVER 1 HR IV ONE
[2023-08-25] MEDS: IRON SUCROSE 200 MG in NS 100 ML OVER 1 HR IV ONE (11:54)
[2023-08-25 13:15] VITALS: BP 150/80; O2SAT 96
== END 2023-08-25 13:15 ==
LOC: M INFU 11:45
PROVIDERS: ATTEND Internal Medicine Hematology
DX: D50.9 Iron deficiency anemia, unspecified (principal)
CPT/HCPCS: 96365; J1756

== ENCOUNTER 2023-09-01 10:55 | Outpatient (CLI) | payer MEDICARE, OTHER ==
[~2023-09-01] VITALS: Ht 177.8 cm; Wt 102.0 kg
[2023-09-01] MEDS: IRON SUCROSE 200 MG in NS 100 ML IV ONE (10:47)
[~2023-09-01 10:55] MED LIST changes: -IRON SUCROSE 200 MG in NS 100 ML OVER 1 HR IV ONE
[2023-09-01 10:58] VITALS: BP 142/62; O2SAT 96
[2023-09-01 11:59] VITALS: BP 150/72; O2SAT 95
== END 2023-09-01 12:00 ==
LOC: M INFU 10:55
PROVIDERS: ATTEND Internal Medicine Hematology
DX: D50.9 Iron deficiency anemia, unspecified (principal)
CPT/HCPCS: 96365; J1756

== ENCOUNTER → 2023-09-13 | Outpatient (CLI) | payer MEDICARE, OTHER ==
[~2023-09-13] MED LIST changes: -ALBUTEROL SULFATE 2.5MG/0.5ML INH NEB SOLN INH PRN; -EPINEPHrine INJ 1 MG/ML 1ML AMP IM PRN; -NS 1,000 ML IV SCH; -diphenhydrAMINE 50MG/ML VIAL IV PRN; -methylPREDNISolone 125MG 2ML VIAL IV PRN
[2023-09-13 13:39] LABS: BASO % 0.6 % (0.0-1.0); EOS # 0.1 10^3/uL (0.0-0.5); EOS % 3.3 % (0.0-3.0); HEMATOCRIT 38.8 % (42.0-52.0); HEMOGLOBIN 12.7 g/dl (13.5-17.5); LYMPH # 0.6 10^3/uL (1.5-5.0); LYMPH % 19.5 % (24.0-44.0); MEAN CORPUSCULAR HEMOGLOBIN 29.4 pg (27.0-33.0); MEAN CORPUSCULAR HGB CONC 32.7 g/dl (32.0-36.5); MEAN CORPUSCULAR VOLUME 89.8 fl (80.0-96.0); MONO # 0.4 10^3/uL (0.0-0.8); MONO % 11.2 % (2.0-8.0); NEUTROPHILS # 2.1 10^3/uL (1.5-8.5); NEUTROPHILS % 64.8 % (36.0-66.0); PLATELET COUNT, AUTOMATED 182 10^3/uL (150-450); RED BLOOD COUNT 4.32 10^6/uL (4.30-6.10); WHITE BLOOD COUNT 3.3 10^3/uL (4.0-10.0)
[2023-09-13 13:51] LABS: ALBUMIN 3.1 G/DL (3.2-5.2)
[2023-09-13 13:59] LABS: PERCENT SATURATION 23.9 % (19.7-50.0)
[2023-09-13 14:00] LABS: FERRITIN 260.8 NG/ML (10.5-307.3)
[2023-09-13 14:02] LABS: HEMOGLOBIN A1c 6.3 % (4.0-6.0)
== END ==
LOC: M LAB 12:53
PROVIDERS: ATTEND Orthopaedic Surgery
DX: Z01.818 Encounter for other preprocedural examination (principal); M25.561 Pain in right knee; Z79.899 Other long term (current) drug therapy

== ENCOUNTER → 2023-09-13 | Outpatient (REF) | payer MEDICARE, OTHER | LOC: M LABDRAWP 17:52 | PROVIDERS: ATTEND Internal Medicine Hematology | DX: Z01.818 Encounter for other preprocedural examination (principal); G47.00 Insomnia, unspecified; N30.00 Acute cystitis without hematuria; I25.10 Atherosclerotic heart disease of native coronary artery without angina pectoris ==

== ENCOUNTER 2023-10-03 09:30 | Observation (INO) | payer MEDICARE, OTHER ==
[~2023-10-03] VITALS: Ht 177.8 cm; Wt 98.3 kg
[~2023-10-03 09:30] MED LIST changes: +MEMA10TA PO; -MEMA10TA19 PO
[2023-10-03 11:34] LABS: BASO % 0.4 % (0.0-1.0); EOS # 0.1 10^3/uL (0.0-0.5); EOS % 2.2 % (0.0-3.0); HEMATOCRIT 29.9 % (42.0-52.0); HEMOGLOBIN 10.1 g/dl (13.5-17.5); LYMPH # 0.4 10^3/uL (1.5-5.0); LYMPH % 8.1 % (24.0-44.0); MEAN CORPUSCULAR HEMOGLOBIN 30.8 pg (27.0-33.0); MEAN CORPUSCULAR HGB CONC 33.8 g/dl (32.0-36.5); MEAN CORPUSCULAR VOLUME 91.2 fl (80.0-96.0); MONO # 0.6 10^3/uL (0.0-0.8); MONO % 13.2 % (2.0-8.0); NEUTROPHILS # 3.3 10^3/uL (1.5-8.5); NEUTROPHILS % 74.5 % (36.0-66.0); PLATELET COUNT, AUTOMATED 185 10^3/uL (150-450); RED BLOOD COUNT 3.28 10^6/uL (4.30-6.10); WHITE BLOOD COUNT 4.5 10^3/uL (4.0-10.0)
[2023-10-03] MEDS: NS 500 ML IV ONE (11:47)
[2023-10-03] MEDS: LIDOCAINE 2% 5ML JELLY UROJET TOP ONE (11:55)
[2023-10-03 12:05] LABS: ETHYL ALCOHOL (ETHANOL) 0.008 % (0.000-0.010)
[2023-10-03 12:07] LABS: ALBUMIN 2.4 G/DL (3.2-5.2); ALKALINE PHOSPHATASE 126 U/L (46-116); ALT/SGPT 89 U/L (7.0-40); AST/SGOT 62 U/L (<34); BILIRUBIN,DIRECT 0.3 MG/DL (<0.4); BLOOD UREA NITROGEN 17 MG/DL (9-23); CARBON DIOXIDE LEVEL 27 MMOL/L (20-31); CHLORIDE LEVEL 106 MMOL/L (98-107); CPK CREATINE PHOSPHOKINASE 77 U/L (46-171); CREATININE FOR GFR 0.89 MG/DL (0.70-1.30); GLOMERULAR FILTRATION RATE > 60.0 (>42); GLUCOSE, FASTING 196 MG/DL (74-106); MB/CK RELATIVE INDEX 1.29 (< OR =4); POTASSIUM SERUM 4.3 MMOL/L (3.5-5.1); SALICYLATE LEVEL < 3.0 MG/DL (<30); SODIUM LEVEL 135 MMOL/L (136-145); TOTAL PROTEIN 5.6 G/DL (5.7-8.2)
[2023-10-03 12:09] LABS: THYROID STIMULATING HORMONE 0.827 uIU/ML (0.55-4.78)
[2023-10-03 12:16] LABS: AMPHETAMINES LEVEL URINE NEGATIVE (NEGATIVE); BARBITURATES URINE NEGATIVE (NEGATIVE); CANNABINOIDS URINE NEGATIVE (NEGATIVE); COCAINE METABOLITE URINE NEGATIVE (NEGATIVE); METHADONE URINE NEGATIVE (NEGATIVE); OPIATES URINE NEGATIVE (NEGATIVE); PHENCYCLIDINE URINE NEGATIVE (NEGATIVE)
[2023-10-03] MEDS ORDERED: ISOVUE-370 76% 100ML VIAL As Ordered ONE (12:16)
[2023-10-03 12:17] LABS: BENZODIAZEPINES URINE NEGATIVE (NEGATIVE)
[2023-10-03] MEDS: MAG SULF 1GM/100ML (MAG RUN) 1 GM in IV 1 EA IV ONE (13:28)
[2023-10-03 13:48] LABS: CK-MB VALUE MASS < 1.0 NG/ML (<3.6)
[2023-10-03 13:49] LABS: CPK CREATINE PHOSPHOKINASE 62 U/L (46-171); MB/CK RELATIVE INDEX 1.61 (< OR =4)
[2023-10-03 14:45] LABS: PROCALCITONIN 0.11 ng/ml
[2023-10-03 15:00] LABS: ERYTHROCYTE SEDIMENTATION RATE 24 mm/hr (0-20)
[2023-10-03] MEDS: NS 1,000 ML IV ONE (15:15)
[2023-10-03] MEDS ORDERED: QUET1TAB17 PO (15:24)
[2023-10-03] MEDS ORDERED: ACET1TAB55 PO (15:24)
[2023-10-03] MEDS ORDERED: OXYC-517 PO (15:24)
[2023-10-03] MEDS ORDERED: NITR0.4S14 SL (15:24)
[2023-10-03] MEDS ORDERED: BACI1CAP PO (15:24)
[2023-10-03] MEDS ORDERED: HOME MED LIST COMPLETE! XX SCH (15:25)
[2023-10-03] MEDS ORDERED: GLUCAGON INJ 1MG VIAL SC PRN (16:10)
[2023-10-03] MEDS ORDERED: DEXTROSE 50% 50ML SYRINGE IV PRN (16:10)
[2023-10-03] MEDS ORDERED: MOM 30ML SUSPENSION UDC PO PRN (16:10)
[2023-10-03] MEDS ORDERED: GLUCOSE 4GM CHEW TABLET PO PRN (16:10)
[2023-10-03 16:28] LABS: RSV AMPLIFICATION NEGATIVE (NEGATIVE)
[2023-10-03 17:26] LABS: VENOUS BASE EXCESS -1.1 (-2.0-2.0); VENOUS HCO3 25.3 MMOL/L (23.0-27.0); VENOUS O2 SATURATION 69.8 % (60.0-80.0); VENOUS PARTIAL PRESSURE CO2 49.8 mmHg (38.0-50.0); VENOUS PARTIAL PRESSURE O2 40.1 mmHg (30.0-50.0); VENOUS PH 7.323 UNITS (7.330-7.430); VENOUS STANDARD HCO3 23.1 MMOL/L; VENOUS TOTAL CO2 26.8 MMOL/L (24.0-28.0)
[2023-10-03] MEDS: INSULIN LISPRO (NovoLOG) PER UNIT SC SCH ×2 (17:30→21:00)
[2023-10-03 18:02] LABS: INR 1.13; PARTIAL THROMBOPLASTIN TIME 46.8 SECONDS (24.8-34.2); PROTHROMBIN TIME 14.2 SECONDS (12.5-14.5)
[2023-10-03 20:43] VITALS: BP 141/50; TEMP 98.2; O2SAT 100
[2023-10-03] MEDS: DOCUSATE SODIUM 100MG CAPSULE PO SCH (20:57)
[2023-10-04 05:03] VITALS: BP 143/63; TEMP 97.7; O2SAT 97
[2023-10-04] MEDS: ACETAMINOPHEN TAB 650MG DOSE (2X325MG) PO PRN (05:05)
[2023-10-04 07:13] LABS: HEMATOCRIT 27.2 % (42.0-52.0); HEMOGLOBIN 9.1 g/dl (13.5-17.5); MEAN CORPUSCULAR HGB CONC 33.5 g/dl (32.0-36.5); MEAN CORPUSCULAR VOLUME 89.8 fl (80.0-96.0); PLATELET COUNT, AUTOMATED 206 10^3/uL (150-450); RED BLOOD COUNT 3.03 10^6/uL (4.30-6.10)
[2023-10-04] MEDS ORDERED: HOME MED LIST COMPLETE! XX SCH (07:35)
[2023-10-04 07:37] LABS: ALBUMIN 2.2 G/DL (3.2-5.2); ALKALINE PHOSPHATASE 111 U/L (46-116); ALT/SGPT 67 U/L (7.0-40); AST/SGOT 38 U/L (<34); BILIRUBIN,TOTAL 0.8 MG/DL (0.3-1.2); BLOOD UREA NITROGEN 12 MG/DL (9-23); CALCIUM LEVEL 8.8 MG/DL (8.3-10.6); CARBON DIOXIDE LEVEL 24 MMOL/L (20-31); CHLORIDE LEVEL 107 MMOL/L (98-107); CREATININE FOR GFR 0.87 MG/DL (0.70-1.30); GLOMERULAR FILTRATION RATE > 60.0 (>42); GLUCOSE, FASTING 118 MG/DL (74-106); POTASSIUM SERUM 4.2 MMOL/L (3.5-5.1); SODIUM LEVEL 138 MMOL/L (136-145); TOTAL PROTEIN 5.1 G/DL (5.7-8.2)
[2023-10-04] MEDS ORDERED: oxyCODONE 5MG TAB PO PRN (07:40)
[2023-10-04] MEDS: ENOXAPARIN 40MG/0.4ML SYRINGE (J1650 PER 10MG) SC SCH (08:51)
[2023-10-04] MEDS: ROSUVASTATIN 10 MG TAB (CRESTOR) PO SCH (08:52)
[2023-10-04] MEDS: DULoxetine 30MG CAPSULE (CYMBALTA) PO SCH (08:52)
[2023-10-04] MEDS: DONEPEZIL 5 MG TAB PO SCH (08:52)
[2023-10-04] MEDS: busPIRone 10 MG TAB PO SCH (08:53)
[2023-10-04] MEDS: oxyBUTYnin *DITROPAN XL* 5 MG TABCR PO SCH (08:53)
[2023-10-04] MEDS: CLOPIDOGREL 75 MG TAB PO SCH (08:53)
[2023-10-04] MEDS: MEMANTINE 5MG TABLET (NAMENDA) PO SCH (08:53)
[2023-10-04] MEDS: QUEtiapine FUMARATE 25 MG TAB PO SCH (08:53)
[2023-10-04] MEDS: FUROSEMIDE 20 MG TAB PO SCH (08:53)
[2023-10-04] MEDS: PANTOPRAZOLE 40MG TAB (PROTONIX) PO SCH (08:53)
[2023-10-04] MEDS: GABAPENTIN 300 MG CAP PO SCH (08:54)
[2023-10-04] MEDS: POTASSIUM CHLORIDE 10MEQ SR TABLET PO SCH (08:54)
[2023-10-04] MEDS: VITAMIN D 1,000 INTERNATIONAL UNITS TABLET PO SCH (08:54)
[2023-10-04] MEDS: EZETIMIBE 10MG TABLET (ZETIA) PO SCH (08:56)
[2023-10-04] MEDS ORDERED: QUEtiapine FUMARATE 100 MG TAB PO SCH (21:00)
[2023-10-04] MEDS ORDERED: LEVEMIR (INSULIN DETEMIR) 1 UNITS/0.01ML SC SCH (21:00)
[2023-10-04] MEDS ORDERED: LOSARTAN 50MG TABLET PO SCH (21:00)
[2023-10-04] MEDS ORDERED: tiZANidine 4 MG TAB PO SCH (21:00)
== END 2023-10-04 13:00 | disposition home health service (06) ==
LOC: EDBD 09:30 → M ED 09:30 → INTOOBSV 16:10 → M ED INP 16:10 → ENRESERV 19:52 → M MSPAV 20:41
PROVIDERS: ADMIT Student in an Organized Health Care Education/Training Program; ATTEND Student in an Organized Health Care Education/Training Program
DX: G93.49 Other encephalopathy (principal); R22.41 Localized swelling, mass and lump, right lower limb; D62 Acute posthemorrhagic anemia; F03.90 Unspecified dementia, unspecified severity, without behavioral disturbance, psychotic disturbance, mood disturbance, and anxiety; Z79.82 Long term (current) use of aspirin; Z79.02 Long term (current) use of antithrombotics/antiplatelets; Z88.5 Allergy status to narcotic agent; Z88.8 Allergy status to other drugs, medicaments and biological substances
CPT/HCPCS: 36415; 51701; 70450; 70551; 71045; 71275; 74177; 80047; 80048; 80053; 80076; 80143; 80307; 81001; 82077; 82140; 82550; 82553; 82803; 83605; 83735; 84145; 84443; 84484; 85025; 85027; 85610; 85652; 85730; 87040; 87631; 93005; 93041; 93971; 94760; 96361; 96372; 96374; 96376; 97161; 97165; 97530; 99285; G0378; J1650; J1815; J3475; Q9967

== ENCOUNTER → 2023-12-05 | Outpatient (CLI) | payer MEDICARE, OTHER ==
[~2023-12-05] MED LIST changes: +ACET1TAB55 PO; +BACI1CAP PO; +BICA50TA4 PO; -BICA50TA9 PO; +NITR0.4S14 SL; +ONDA-282 PO; -ONDA4TAB6 PO; +OXYC-517 PO; -POTA10CA60 PO; +POTA10CA70 PO; -ROSU40TA4 PO; +ROSU40TA63 PO
== END ==
LOC: M ONCR 10:06
PROVIDERS: ATTEND General Practice
DX: C61 Malignant neoplasm of prostate (principal); R32 Unspecified urinary incontinence; N31.9 Neuromuscular dysfunction of bladder, unspecified; Z71.2 Person consulting for explanation of examination or test findings; Z87.891 Personal history of nicotine dependence; Z79.891 Long term (current) use of opiate analgesic; Z79.4 Long term (current) use of insulin; Z79.84 Long term (current) use of oral hypoglycemic drugs; Z79.899 Other long term (current) drug therapy; Z79.82 Long term (current) use of aspirin; Z79.02 Long term (current) use of antithrombotics/antiplatelets; Z92.3 Personal history of irradiation

== ENCOUNTER → 2024-02-22 | Outpatient (CLI) | payer MEDICARE, OTHER ==
[2024-02-22 15:31] LABS: BASO % 0.4 % (0.0-1.0); EOS # 0.1 10^3/uL (0.0-0.5); EOS % 2.1 % (0.0-3.0); HEMATOCRIT 38.2 % (42.0-52.0); HEMOGLOBIN 13.5 g/dl (13.5-17.5); LYMPH # 0.8 10^3/uL (1.5-5.0); LYMPH % 16.2 % (24.0-44.0); MEAN CORPUSCULAR HEMOGLOBIN 33.8 pg (27.0-33.0); MEAN CORPUSCULAR HGB CONC 35.3 g/dl (32.0-36.5); MEAN CORPUSCULAR VOLUME 95.5 fl (80.0-96.0); MONO # 0.5 10^3/uL (0.0-0.8); MONO % 8.7 % (2.0-8.0); NEUTROPHILS # 3.8 10^3/uL (1.5-8.5); NEUTROPHILS % 72.2 % (36.0-66.0); PLATELET COUNT, AUTOMATED 138 10^3/uL (150-450); WHITE BLOOD COUNT 5.2 10^3/uL (4.0-10.0)
== END ==
LOC: M PLALAB 11:41
PROVIDERS: ATTEND Internal Medicine Hematology
DX: I10 Essential (primary) hypertension (principal); R06.02 Shortness of breath

== ENCOUNTER → 2024-02-29 | Outpatient (CLI) | payer MEDICARE, OTHER | LOC: M PLAIMG 09:33 | PROVIDERS: ATTEND Internal Medicine Hematology | DX: I10 Essential (primary) hypertension (principal) ==

== ENCOUNTER → 2024-04-18 | Outpatient (CLI) | payer MEDICARE, OTHER ==
[~2024-04-18] MED LIST changes: +GABA-1172 PO; +GABA-1490 PO; -GABA-282 PO; -GABA600T4 PO; -ROSU40TA63 PO; +ROSU40TA81 PO
[2024-04-18 16:06] LABS: BASO % 0.7 % (0.0-1.0); EOS # 0.1 10^3/uL (0.0-0.5); EOS % 1.7 % (0.0-3.0); HEMATOCRIT 38.1 % (42.0-52.0); HEMOGLOBIN 13.1 g/dl (13.5-17.5); LYMPH # 0.8 10^3/uL (1.5-5.0); LYMPH % 20.6 % (24.0-44.0); MEAN CORPUSCULAR HEMOGLOBIN 33.2 pg (27.0-33.0); MEAN CORPUSCULAR HGB CONC 34.4 g/dl (32.0-36.5); MEAN CORPUSCULAR VOLUME 96.7 fl (80.0-96.0); MONO # 0.4 10^3/uL (0.0-0.8); MONO % 10.5 % (2.0-8.0); NEUTROPHILS # 2.7 10^3/uL (1.5-8.5); PLATELET COUNT, AUTOMATED 168 10^3/uL (150-450); RED BLOOD COUNT 3.94 10^6/uL (4.30-6.10); WHITE BLOOD COUNT 4.1 10^3/uL (4.0-10.0)
[2024-04-18 16:20] LABS: CREATININE, URINE 70.5 MG/DL; MAU/CREAT RATIO 14.1 MCG/MG (0.0-30.0)
[2024-04-18 16:24] LABS: FERRITIN 180.5 NG/ML (10.5-307.3); TOTAL 25(OH) VITAMIN D 44.2 NG/ML (20.0-100.0)
[2024-04-18 16:25] LABS: THYROID STIMULATING HORMONE 3.698 uIU/ML (0.55-4.78)
[2024-04-18 16:26] LABS: C REACTIVE PROTEIN QUANTITATIV < 0.40 MG/DL (<1.0)
[2024-04-18 16:27] LABS: FREE T4 1.11 NG/DL (0.89-1.76)
[2024-04-18 16:28] LABS: ALBUMIN 3.3 G/DL (3.2-5.2); ALKALINE PHOSPHATASE 130 U/L (46-116); ALT/SGPT 63 U/L (7.0-40); AST/SGOT 29 U/L (<34); BILIRUBIN,TOTAL 0.4 MG/DL (0.3-1.2); BLOOD UREA NITROGEN 24 MG/DL (9-23); CALCIUM LEVEL 10.1 MG/DL (8.3-10.6); CARBON DIOXIDE LEVEL 29 MMOL/L (20-31); CHLORIDE LEVEL 112 MMOL/L (98-107); CHOLESTEROL LEVEL 141 MG/DL (<200); CHOLESTEROL RISK RATIO 4.22 (<5); CREATININE FOR GFR 1.12 MG/DL (0.70-1.30); GLOMERULAR FILTRATION RATE > 60.0 (>35); GLUCOSE, FASTING 219 MG/DL (74-106); HDL CHOLESTEROL 33.4 MG/DL (>40); IRON (FE) 69 UG/DL (65-175); LDL CHOLESTEROL 82.6 MG/DL (<100); NON-HDL-C 107.6 MG/DL; POTASSIUM SERUM 5.3 MMOL/L (3.5-5.1); SODIUM LEVEL 142 MMOL/L (136-145); TOTAL PROTEIN 6.6 G/DL (5.7-8.2); TRIGLYCERIDES LEVEL 125 MG/DL (<150); VITAMIN B12 LEVEL 1346 PG/ML (211-911)
[2024-04-18 16:32] LABS: HEMOGLOBIN A1c 6.4 % (4.0-6.0)
== END ==
LOC: M PLALAB 12:41
PROVIDERS: ATTEND Internal Medicine Hematology
DX: D50.9 Iron deficiency anemia, unspecified (principal); I25.10 Atherosclerotic heart disease of native coronary artery without angina pectoris; Z79.899 Other long term (current) drug therapy

== ENCOUNTER → 2025-04-28 | Outpatient (CLI) | payer MEDICARE, OTHER ==
[~2025-04-28] MED LIST changes: +ACET-1515 PO; -ACET650T15 PO; -AMBI5TAB PO; -EZET10TA21 PO; +EZET10TA57 PO; -FLOM0.4C39 PO; +LISI40TA10 PO; -LISI40TA4 PO; +METF-1201 PO; -METF-723 PO; +TAMS-18 PO; +ZOLP-532 PO; -ZOLP5TAB PO; +ZOLP5TAB9 PO
== END ==
LOC: M WUC 13:24
PROVIDERS: ATTEND Urology
DX: Z01.818 Encounter for other preprocedural examination (principal); N39.3 Stress incontinence (female) (male)

== ENCOUNTER 2025-05-02 06:09 | Day surgery (SDC) | payer MEDICARE, OTHER ==
[~2025-05-02] VITALS: Ht 177.8 cm; Wt 95.3 kg
[2025-05-02] MEDS ORDERED: LR 1,000 ML IV SCH (06:15)
[2025-05-02] MEDS ORDERED: GLYCOPYRROLATE INJ 0.2 MG/ML 2 ML VIAL As Ordered ONE (06:37)
[2025-05-02] MEDS ORDERED: ONDANSETRON 4MG/2ML VIAL As Ordered ONE (06:37)
[2025-05-02] MEDS ORDERED: LIDOCAINE 2% 100 MG/5 ML SDV (FOR ANES.) As Ordered ONE (06:37)
[2025-05-02] MEDS: ceFAZolin SOD 2 GM IV ONCE IV ONE (09:10)
[2025-05-02] MEDS: LIDOCAINE 2% 5 ML JELLY UROJET As Ordered ONE (09:22)
[2025-05-02] MEDS ORDERED: PHENYLephrine 500MCG 5ML (100MCG/ML) SYRINGE As Ordered ONE (09:22)
[2025-05-02] MEDS ORDERED: MEPERIDINE 25 MG/ML 1 ML VIAL IV PRN (09:35)
[2025-05-02] MEDS ORDERED: ONDANSETRON 4MG/2ML VIAL IV PRN (09:35)
[2025-05-02] MEDS ORDERED: HYDROMORPHONE HCL 0.5 MG/0.5 ML SYRINGE IV PRN (09:35)
[2025-05-02 10:55] VITALS: BP 103/57; TEMP 96; O2SAT 97
== END 2025-05-02 10:57 | disposition home or self-care (01) ==
LOC: M SDC 06:09
PROVIDERS: ATTEND Urology
DX: N39.3 Stress incontinence (female) (male) (principal); I10 Essential (primary) hypertension; E11.9 Type 2 diabetes mellitus without complications; I48.91 Unspecified atrial fibrillation; I25.10 Atherosclerotic heart disease of native coronary artery without angina pectoris; Z95.1 Presence of aortocoronary bypass graft; E78.5 Hyperlipidemia, unspecified; D64.9 Anemia, unspecified; G47.33 Obstructive sleep apnea (adult) (pediatric); Z79.82 Long term (current) use of aspirin; Z79.01 Long term (current) use of anticoagulants; Z79.4 Long term (current) use of insulin; Z79.899 Other long term (current) drug therapy; Z86.16 Personal history of COVID-19; Z85.46 Personal history of malignant neoplasm of prostate; Z92.3 Personal history of irradiation; L40.9 Psoriasis, unspecified; L03.90 Cellulitis, unspecified; F43.10 Post-traumatic stress disorder, unspecified; Z88.8 Allergy status to other drugs, medicaments and biological substances
CPT/HCPCS: 51715; J0688; J1596; J2371; J2405; J3010; L8606